=== PATIENT | male | born 1980 | race Caucasian/White ===

== ENCOUNTER → 2016-12-07 | Outpatient (CLI) | payer OTHER ==
[~2016-12-07] MED LIST: ACHD5005 PO; AMOX500C2 PO; CEPH500C PO; CITA40TA19 PO; CLON1TAB2 PO; DACL60TA PO; DIVA-20 PO; DIVA125T13 PO; DIVA500T PO; DIVA500T15; GABA600T2 PO; GBPN100C PO; GBPN300C PO; HYDR-3583; HYDR-3714 PO; HYDR-3812 PO; HYDR1TAB PO; HYDR1TAB8 PO; LAMO100T69; LAMO150T2 PO; LAMO150T3 PO; LMT25T; LMT25T PO; MAGN400C PO; NAPR-243 PO; ONDAN4ODT PO; PENI500T PO; PRILOSEC PO; PRM25T PO; RABE20TA PO; RABE20TA27 PO; SOFO400T PO; SULF1TAB35 PO; TAPE50TA PO; TOPI100T2 PO; TOPI200T19 PO; TPR100T PO; TPR25T PO; VIAGRA
--- NOTE | 2016-12-07 11:05 | Diagnostic Imaging Report ---
INDICATION: Back pain. COMPARISON: 11/01/2013 FINDINGS: 3 views of the lumbar spine are obtained. No acute fracture, malalignment or osseous destructive process is seen. Vertebral body heights and disc spaces are maintained. Pedicles appear intact. The sacroiliac joints appear unremarkable. IMPRESSION: No acute abnormality is demonstrated. Dictated by: Dictated on workstation # [id number]
== END ==
LOC: RAD 10:22
PROVIDERS: ATTEND Neuromusculoskeletal Medicine, Sports Medicine
DX: M54.5 Low back pain (principal)
CPT/HCPCS: 72100

== ENCOUNTER → 2017-11-01 | Outpatient (CLI) | payer MEDICAID ==
[~2017-11-01] MED LIST changes: -HYDR-3812 PO; +IOHEXOL 350 MG/ML 100 ML (OMNIPAQUE 350) VIAL IV ONE; +NS 250 ML (IVPB) BAG IV ONE
--- NOTE | 2017-11-01 14:01 | Diagnostic Imaging Report ---
PROCEDURE: CT head with and without contrast. TECHNIQUE: Multiple contiguous axial images were obtained through the brain before and after the administration of intravenous contrast. INDICATION: Seizures and neuropathy. Comparison is made with prior head CT from 02/08/2013. The ventricles and sulci are within normal limits. No sulcal effacement, midline shift or hemorrhage is detected. Cisterns are patent. No abnormal enhancement following contrast administration is identified. IMPRESSION: Unremarkable pre-and postcontrast CT of the brain. Dictated by: Dictated on workstation # [id number]
== END ==
LOC: RAD 13:07
PROVIDERS: ATTEND Nurse Practitioner Community Health
DX: G62.9 Polyneuropathy, unspecified (principal); R56.9 Unspecified convulsions
CPT/HCPCS: 70470

== ENCOUNTER 2018-06-26 12:50 | Emergency (ER) | payer MEDICAID ==
[~2018-06-26] VITALS: Ht 177.8 cm; Wt 65.8 kg
[~2018-06-26 12:50] MED LIST changes: -IOHEXOL 350 MG/ML 100 ML (OMNIPAQUE 350) VIAL IV ONE; -NS 250 ML (IVPB) BAG IV ONE
--- NOTE | 2018-06-26 13:06 | NUR ---
LG KNIFE REMOVED FROM PT AT THIS TIME.
--- NOTE | 2018-06-26 13:18 | ED Psychosocial ---
General Chief Complaint: Psych/Social Disorder Stated Complaint: PSYCH EVAL Source: patient Exam Limitations: no limitations History of Present Illness Date Seen by Provider: Jun 26, 2018 Time Seen by Provider: 13:15 Initial Comments To ER with reports of depression for many months culminating in thoughts of suicide yesterday and today. He thought of several ways to do this including injecting bleach, stepping out in front of a semi truck, taking a handful of pills. He states "I've got nobody". States he is unable to be employed due to seizure disorder and history of bulging disks in his neck. States that he cannot be in relationship because "I'm no good at them". He took a shot of whiskey yesterday and only occasionally drinks alcohol, not daily. He took a Xanax that was not prescribed to him yesterday. He injected methamphetamine yesterday as well. He is Cooperative on arrival and states that he needs help. Timing/Duration: constant Severity: moderate Associated Symptoms: suicidal ideation Allergies and Home Medications Allergies Coded Allergies: phenytoin (Unverified Allergy, Severe, RASH ITCHING, 08/14/08) Home Medications Gabapentin 600 Mg Tablet, 600 MG PO TID, (Reported) Hydrocodone Bit/Acetaminophen 1 Each Tablet, 1 TAB PO BID, (Reported) Hydrocodone Bit/Acetaminophen 1 Each Tablet, 1-2 TAB PO 4-6HR PRN for PAIN Prescribed by: TATIANA HESS on 01/22/16 1447 Lamotrigine 150 Mg Tablet, 150 MG PO BID, (Reported) LAST FILLED 02/01/15 #60 Rabeprazole Sodium 20 Mg Tablet.dr, 20 MG PO DAILY, (Reported) Topiramate 100 Mg Tablet, 100 MG PO BID, (Reported) LAST FILLED 01/31/15 #60 Patient Home Medication List Home Medication List Reviewed: Yes Review of Systems Constitutional: see HPI EENTM: see HPI Respiratory: no symptoms reported Cardiovascular: no symptoms reported Musculoskeletal: no symptoms reported Skin: no symptoms reported Psychiatric/Neurological: See HPI, Depressed, Emotional Problems Past Lksuatl-Agsdrx-Afftvo Hx Patient Social History Type Used: Cigarettes Recent Foreign Travel: No Contact w/Someone Who Travel: No Immunizations Up To Date Tetanus Booster (TDap): Unknown PED Vaccines UTD: No Date of Influenza Vaccine: Jan 24, 2013 Seasonal Allergies Seasonal Allergies: No Past Medical History Currently Using CPAP: No Currently Using BIPAP: No Neuropathy, Seizure Disorder, Traumatic Brain Injury Reproductive Disorders: Yes Sexually Transmitted Disease: Yes (Hep C) HIV/AIDS: No Gastroesophageal Reflux, Hepatitis Fractures Anxiety Family Medical History Arthritis 19 MOTHER Completed stroke 19 FATHER Myocardial infarction G8 BROTHER No Pertinent Family Hx Physical Exam Vital Signs - First Documented 06/26/18 13:00 Temp 97.9 Pulse 88 Resp 16 B/P (MAP) 114/79 (91) Pulse Ox 98 O2 Delivery Room Air Capillary Refill : Height, Weight, BMI Height: 5'10.00" Weight: 149lbs. 6.0oz. 67.747795cy; 24.79 BMI Method:Stated General Appearance: WD/WN, no apparent distress, other (cooperative alert.) HEENT: PERRL/EOMI, normal ENT inspection Neck: non-tender, full range of motion Respiratory: normal breath sounds, no respiratory distress, no accessory muscle use Cardiovascular: regular rate, rhythm, no murmur Gastrointestinal: normal bowel sounds, non tender, soft Extremities: normal range of motion, non-tender Neurologic/Psychiatric: alert, depressed affect Appearance/Memory: appropriate insight, no memory impairment, disheveled Behavior/Eye Contact: cooperative, normal speech, avoids eye contact Thoughts/Hallucinations: normal thought pattern Skin: normal color, warm/dry Progress/Results/Core Measures Results/Orders Lab Results Laboratory Tests Test 06/26/18 13:45 06/26/18 14:40 Range/Units White Blood Count 5.1 4.3-11.0 10^3/uL Red Blood Count 4.32 L 4.35-5.85 10^6/uL Hemoglobin 13.7 13.3-17.7 G/DL Hematocrit 39 L 40-54 % Mean Corpuscular Volume 91 80-99 FL Mean Corpuscular Hemoglobin 32 25-34 PG Mean Corpuscular Hemoglobin Concent 35 32-36 G/DL Red Cell Distribution Width 12.4 10.0-14.5 % Platelet Count 167 130-400 10^3/uL Mean Platelet Volume 10.8 H 7.4-10.4 FL Neutrophils (%) (Auto) 46 42-75 % Lymphocytes (%) (Auto) 45 H 12-44 % Monocytes (%) (Auto) 6 0-12 % Eosinophils (%) (Auto) 3 0-10 % Basophils (%) (Auto) 0 0-10 % Neutrophils # (Auto) 2.3 1.8-7.8 X 10^3 Lymphocytes # (Auto) 2.3 1.0-4.0 X 10^3 Monocytes # (Auto) 0.3 0.0-1.0 X 10^3 Eosinophils # (Auto) 0.2 0.0-0.3 10^3/uL Basophils # (Auto) 0.0 0.0-0.1 10^3/uL Sodium Level 139 135-145 MMOL/L Potassium Level 3.6 3.6-5.0 MMOL/L Chloride Level 109 H 98-107 MMOL/L Carbon Dioxide Level 23 21-32 MMOL/L Anion Gap 7 5-14 MMOL/L Blood Urea Nitrogen 11 7-18 MG/DL Creatinine 0.86 0.60-1.30 MG/DL Estimat Glomerular Filtration Rate > 60 BUN/Creatinine Ratio 13 Glucose Level 84 70-105 MG/DL Calcium Level 9.3 8.5-10.1 MG/DL Corrected Calcium 9.4 8.5-10.1 MG/DL Total Bilirubin 0.4 0.1-1.0 MG/DL Aspartate Amino Transf (AST/SGOT) 24 5-34 U/L Alanine Aminotransferase (ALT/SGPT) 53 0-55 U/L Alkaline Phosphatase 59 40-136 U/L Total Protein 6.7 6.4-8.2 GM/DL Albumin 3.9 3.2-4.5 GM/DL Salicylates Level < 5.0 L 5.0-20.0 MG/DL Acetaminophen Level 19 10-30 UG/ML Serum Alcohol < 10 <10 MG/DL Urine Color YELLOW Urine Clarity SLIGHTLY CLOUDY Urine pH 6 5-9 Urine Specific [place] 1.015 L 1.016-1.022 Urine Protein 1+ H NEGATIVE Urine Glucose (UA) NEGATIVE NEGATIVE Urine Ketones NEGATIVE NEGATIVE Urine Nitrite NEGATIVE NEGATIVE Urine Bilirubin NEGATIVE NEGATIVE Urine Urobilinogen 1 NORMAL MG/DL Urine Leukocyte Esterase 1+ H NEGATIVE Urine RBC (Auto) NEGATIVE NEGATIVE Urine RBC NONE /HPF Urine WBC 2-5 /HPF Urine Crystals NONE /LPF Urine Bacteria NEGATIVE /HPF Urine Casts NONE /LPF Urine Mucus SMALL H /LPF Urine Culture Indicated NO Urine Opiates Screen NEGATIVE NEGATIVE Urine Oxycodone Screen NEGATIVE NEGATIVE Urine Methadone Screen NEGATIVE NEGATIVE Urine Propoxyphene Screen NEGATIVE NEGATIVE Urine Barbiturates Screen NEGATIVE NEGATIVE Ur Tricyclic Antidepressants Screen NEGATIVE NEGATIVE Urine Phencyclidine Screen NEGATIVE NEGATIVE Urine Amphetamines Screen POSITIVE H NEGATIVE Urine Methamphetamines Screen POSITIVE H NEGATIVE Urine Benzodiazepines Screen POSITIVE H NEGATIVE Urine Cocaine Screen NEGATIVE NEGATIVE Urine Cannabinoids Screen NEGATIVE NEGATIVE My Orders Orders - HARSHIL MANN APRN Cbc With Automated Diff (06/26/18 13:00) Comprehensive Metabolic Panel (06/26/18 13:00) Ua Culture If Indicated (06/26/18 13:00) Drug Screen Stat (Urine) (06/26/18 13:00) Alcohol (06/26/18 13:00) Salicylate (06/26/18 13:00) Acetaminophen (06/26/18 13:00) Ekg Tracing (06/26/18 13:00) General/Regular (06/26/18 Dinner) General/Regular (06/26/18 Lunch) Vital Signs/I&O 06/26/18 06/26/18 13:00 16:08 Temp 97.9 Pulse 88 78 Resp 16 16 B/P (MAP) 114/79 (91) 115/66 (82) Pulse Ox 98 98 O2 Delivery Room Air Room Air Departure Communication (Admissions) His past medical history is listed as having traumatic brain injury, seizure disorder, neuropathy, these are all self reported conditions and I do not have any documentation to verify these. He's been noncompliant with seizure medications and despite that has not had a seizure in many years. 1736-Dr Cooper Psychiatrist accepted [facility]. Impression Primary Impression: Depression Qualified Codes: F32.2 - Major depressive disorder, single episode, severe without psychotic features Disposition: 65 XFER TO PSYCH HOSP/UNIT Condition: Stable Departure-Patient Inst. Referrals: [facility] (PCP) Primary Care Physician YOLETTE DUNLAP (Family) Primary Care Physician HARSHIL MANN APRN Jun 26, 2018 13:18
[2018-06-26 13:53] LABS: BASOPHILS % (AUTO) 0 % (0-10); EOSINOPHILS # (AUTO) 0.2 10^3/uL (0.0-0.3); EOSINOPHILS % (AUTO) 3 % (0-10); HEMATOCRIT 39 % (40-54); HEMOGLOBIN 13.7 G/DL (13.3-17.7); LYMPHOCYTES # (AUTO) 2.3 X 10^3 (1.0-4.0); LYMPHOCYTES % (AUTO) 45 % (12-44); MEAN CORPUSCULAR HEMOGLOBIN 32 PG (25-34); MEAN CORPUSCULAR HGB CONC 35 G/DL (32-36); MEAN CORPUSCULAR VOLUME 91 FL (80-99); MEAN PLATELET VOLUME 10.8 FL (7.4-10.4); MONOCYTES # (AUTO) 0.3 X 10^3 (0.0-1.0); MONOCYTES % (AUTO) 6 % (0-12); NEUTROPHILS # (AUTO) 2.3 X 10^3 (1.8-7.8); NEUTROPHILS % (AUTO) 46 % (42-75); PLATELET COUNT 167 10^3/uL (130-400); RED CELL DISTRIBUTION WIDTH 12.4 % (10.0-14.5); WHITE BLOOD COUNT 5.1 10^3/uL (4.3-11.0)
[2018-06-26 14:12] LABS: ACETAMINOPHEN 19 UG/ML (10-30); ALANINE AMINOTRANSFERASE 53 U/L (0-55); ALBUMIN 3.9 GM/DL (3.2-4.5); ALKALINE PHOSPHATASE 59 U/L (40-136); BILIRUBIN,TOTAL 0.4 MG/DL (0.1-1.0); BUN/CREATININE RATIO 13; CALCIUM 9.3 MG/DL (8.5-10.1); CARBON DIOXIDE 23 MMOL/L (21-32); CHLORIDE 109 MMOL/L (98-107); CREATININE SERUM 0.86 MG/DL (0.60-1.30); GFR ESTIMATED > 60; GLUCOSE 84 MG/DL (70-105); POTASSIUM 3.6 MMOL/L (3.6-5.0); SALICYLATE < 5.0 MG/DL (5.0-20.0); SODIUM 139 MMOL/L (135-145); TOTAL PROTEIN 6.7 GM/DL (6.4-8.2)
--- NOTE | 2018-06-26 14:41 | NUR ---
PT EATING LUNCH AT THIS TIME PROVIDED BY ED.
[2018-06-26 14:53] LABS: BILIRUBIN,URINE NEGATIVE (NEGATIVE); CLARITY,URINE SLIGHTLY CLOUDY; COLOR,URINE YELLOW; GLUCOSE, URINE (UA) NEGATIVE (NEGATIVE); KETONES,URINE NEGATIVE (NEGATIVE); LEUKOCYTE ESTERASE ,URINE 1+ (NEGATIVE); NITRITE,URINE NEGATIVE (NEGATIVE); PH,URINE 6 (5-9); PROTEIN,URINE 1+ (NEGATIVE); UROBILINOGEN,URINE 1 MG/DL (NORMAL)
[2018-06-26 15:11] LABS: BACTERIA,URINE NEGATIVE /HPF
--- NOTE | 2018-06-26 15:13 | NUR ---
PT RESTING QUIETLY, WARM BLANKETS TO PT.
[2018-06-26 15:30] LABS: AMPHETAMINE SCREEN, URINE POSITIVE (NEGATIVE); BARBITURATE SCREEN URINE NEGATIVE (NEGATIVE); BENZODIAZEPINES SCREEN URINE POSITIVE (NEGATIVE); CANNABINOID SCREEN, URINE NEGATIVE (NEGATIVE); COCAINE SCREEN URINE NEGATIVE (NEGATIVE); METHADONE STAT NEGATIVE (NEGATIVE); METHAMPHETAMINE SCREEN URINE S POSITIVE (NEGATIVE); OPIATE SCREEN URINE NEGATIVE (NEGATIVE); OXYCODONE STAT NEGATIVE (NEGATIVE); PROPOXYPHENE STAT NEGATIVE (NEGATIVE); TRICYCLIC ANTIDEPRESSANTS SCRE NEGATIVE (NEGATIVE)
--- NOTE | 2018-06-26 16:07 | NUR ---
PT RESTING QUIETLY, AROUSES EASILY. NO DISTRESS OR DISCOMFORT NOTED.
[2018-06-26 16:08] VITALS: BP 115/66
--- NOTE | 2018-06-26 16:51 | NUR ---
PT UP TO BR AT THIS TIME.
--- OUTSIDE RECORDS SUMMARY | 2018-06-26 17:07 | XMS REPORT | Clinical Summary ---
Author Author [facility] Organization [facility] Address Unknown Phone Unavailable Care Team Providers Care Natural Resources Manager Name Role Phone Joel Cantor MD Unavailable Deacon Weldon DO PCP Eden Candelaria RN Unavailable Unavailable Oz Anderson RN Unavailable Unavailable Qian Calderón Unavailable Unavailable Source Comments Some departments are not documenting in the electronic medical record. If you do not see the information that you expected, contact Release of Information in the Health Information Management department at [phone] for further assistance in locating additional records.[facility] Allergies Comments Active Allergy Reactions Severity Noted Date Phenytoin Sodium Extended RASH 03/30/2014 Medications End Date Status Medication Sig Dispensed Refills Start Date Active lamoTRIgine (LAMICTAL) Take by 0 150 mg tablet mouth daily. Active topiramate (TOPAMAX) 200 Take 300 mg 0 mg tablet by mouth twice daily. Active gabapentin (NEURONTIN) Take 600 mg 0 600 mg tablet by mouth three times daily. Active RABEprazole DR (+) Take 20 mg by 0 (ACIPHEX) 20 mg tablet mouth daily. Active ibuprofen (MOTRIN) 200 mg Take 300 mg 0 tablet by mouth every 6 hours as needed. Active Hydrocodone-Acetaminophen Take 1 Tab by 0 (VICODIN) 5-300 mg tab mouth every 4 hours as needed Active sofosbuvir 400 mg tab Take 1 Tab by 30 Tab 2 mouth daily. 5 Hep C jennifer 3 with 3/6 fibrosis. Active daclatasvir 60 mg tab Take 60 mg by 30 Tab 2 mouth daily. 5 HCV jennifer 3 with 3/6 fibrosis Active Problems Not on file Family History Medical History Relation Name Comments Migraines Mother Seizures Paternal Grandmother Relation Name Status Comments Mother Paternal Grandmother Social History Date Tobacco Use Types Packs/Day Years Used Current Every Day Smoker 0.5 15 Tobacco Cessation: Ready to Quit: Yes Comments: Smoke 1 pack every 2 days Alcohol Use Drinks/Week oz/Week Comments Yes 0 Standard 0.0 quit drinking 06/2013 drinks or equivalent Sex Assigned at Date Recorded Not on file Industry Job Start Date Occupation Not on file Not on file Not on file Travel End Travel History Travel Start No recent travel history available. Last Filed Vital Signs Time Taken Vital Sign Reading 02/18/2015 9:09 AM CDT Blood Pressure 94/50 02/18/2015 9:09 AM CDT Pulse 74 02/18/2015 9:09 AM CDT Temperature 36.5 C (97.7 F) 02/18/2015 9:09 AM CDT Respiratory Rate 18 02/18/2015 9:09 AM CDT Oxygen Saturation 100% - Inhaled Oxygen - Concentration 02/18/2015 9:09 AM CDT Weight 67.2 kg (148 lb 3.2 oz) 02/18/2015 9:09 AM CDT Height 177.8 cm (5' 10") 02/18/2015 9:09 AM CDT Body Mass Index 21.26 Plan of Treatment Health Maintenance Due Date Last Done Comments PHYSICAL (COMPREHENSIVE) 1985 EXAM DTAP/TDAP VACCINES ( - 1996 Tdap) INFLUENZA VACCINE 11/24/2018 HIV SCREENING Completed 03/30/2014 Results Not on filefrom Last 3 Months Insurance Payer Benefit Subscriber ID Type Phone Address Plan / Group [facility] [facility] xxxxxxxxxxx Medicaid [employer] [place] Advance Directives Patient has advance care planning documents on file. For more information, please contact: [facility] [id number] [place] [address]
--- OUTSIDE RECORDS SUMMARY | 2018-06-26 17:08 | XMS REPORT ---
Author Author CHRISTIANO MEDNES Organization [facility] Address [address] [place] [address] Care Team Providers Care Oxygen Furnace Operator Name Role Phone CHRISTIANO MENDES Unavailable PROBLEMS Type Condition ICD9-CM Code NGV44-YM Code Onset Dates Condition Status SNOMED Code Problem Other chronic pain G89.29 Active 29994841 Problem Other chronic pain G89.29 Active 54129579 Problem Seizures R56.9 Active 81237384 Problem Lumbago with sciatica, right side M54.41 Active 354317464 Problem Polysubstance (including opioids) dependence, daily use F19.20 Active 866969407 Problem Neuropathy G62.9 Active 555430396 Problem Cigarette nicotine dependence without complication F17.210 Active 26123161 Problem Gastroenteritis K52.9 Active 53123537 Problem Anxiety F41.9 Active 49260301 Problem Simple chronic bronchitis J41.0 Active 61258770 ALLERGIES Substance Reaction Event Type Date Status Tramadol HCl Pt states induces seizures Drug Allergy Nov, Active Dilantin hives Drug Allergy Nov, Active BusPIRone HCl Pt states induces seizures Drug Allergy Nov, Active ENCOUNTERS Encounter Location Date Diagnosis [facility] [id number] [place] [address]1- 8985 Nov, Neuropathy G62.9 ; Seizures R56.9 and Polysubstance ( including opioids) dependence, daily use F19.20 [facility] [address] [facility] [id number] [address] Oct, [facility] [id number] [place] [address] 95394- 5800 Oct, [address] R56.9 [facility] [address] [id number] [address] 9579 Oct, Seizures R56.[address] [facility] [id number] [place] [address] 63678- 0811 18 Sep, 2017 Seizures R56.9 ; Neuropathy G62.9 and Tinea pedis of both feet B35.3 [facility] [id number] [place] [address] 19636- 6316 15 Sep, 2017 [facility] [address] [address]- 7006 11 Sep, [address] [facility] [address] [address]- 5381 08 Aug, 2017 [facility] [address] [address] Jun, [facility] [address] 17377- 0382 18 Apr, [address] [facility] [address] [address]- 0948 16 Apr, 2017 [facility] [address] 0[address]28- 8843 Apr, Lumbar neuritis M54.16 [facility] [id number] [place] [address] 30125- 4921 Mar, Lumbar neuritis M54.16 [facility] [id number] [place] [address] 10595- 6036 Feb, Lumbar neuritis M54.16 [facility] [id number] [place] [address] 81570 2540 Feb, Anxiety F41.[address] [facility] [address] 64178- 4966 14 Feb, 2017 [facility] [id number] [place] [address] 43735- 9936 Jan, Lumbar neuritis M54.16 [facility] [id number] [place] [address] 72135- 0734 Jan, Seizures R56.9 [facility] [address] [address]- 4556 Jan, [facility] [id number] [place] [address] 48417- 5264 Dec, Lumbar neuritis M54.16 [facility] [address] 31694- 3780 Dec, [facility] [id number] [place] [address] 07792- 4251 Nov, Lumbar neuritis M54.16 [facility] [id number] [place] [address] 35032- 2742 Nov, [facility] [id number] [address] 41493- 4872 Nov, [facility] [id number] [address] 81351- 2027 Nov, Lumbar neuritis M54.16 [facility] [id number] [address] 89543- 3065 Oct, Lumbar neuritis M54.16 [facility] [id number] [address] 27506- 6542 Sep, Lumbago with sciatica, right side M54.[address] [facility] [id number] [address] 15654- 7304 Sep, Lumbar neuritis M54.16 [facility] [id number] [address] 01419- 6278 August, Lumbar neuritis M54.[address] [facility] [id number] [address] 69791- 9826 August, Simple chronic bronchitis J41.0 ; Hemoptysis R04.2 and Cigarette nicotine dependence without complication F17.210 [address] [place] [id number] [address] 76673- 4377 Jul, Lumbago with sciatica, right side M54.41 [place] [id number] [address] 27170- 9485 Jul, Lumbago with sciatica, right side M54.41 [address] [address] 53215- 6979 Jun, Lumbago with sciatica, right side M54.41 [address] 07549- 6230 Jun, Lumbago with sciatica, right side M54.41 [address] [address] 72034- 0301 Jun, Lumbago with sciatica, right side M54.41 [facility] [address] [address]18 -0683 Jun, Gastroenteritis K52.9 [address] [place] [address] 80012- 9219 May, Seizures R56.9 ; Tobacco use Z72.0 ; Tobacco abuse counseling Z71.6 ; Tooth abscess K04.7 ; Pain in right leg M79.604 ; Pain of left leg M79.605 ; Other chronic pain G89.29 and Neuropathy G62.9 [place] [id number] [address] 04477- 0398 May, Lumbago with sciatica, right side M54.41 [address] [address] 03065- 4026 Apr, Lumbago with sciatica, right side M54.41 [address] [address] 04300- 6557 Mar, Lumbago with sciatica, right side M54.41 [facility] [address] [id number] [address] 117[address] Mar, [facility] [address] [facility] [id number] [address] 90662- 8037 Mar, Lumbago with sciatica, right side M54.41 [facility] [address] [facility] [id number] [address] 37961- 0117 Feb, Lumbago with sciatica, right side M54.41 and Other chronic pain G89.29 [facility] [address] [facility] [id number] [place] [address] 96400- 9042 Feb, [facility] [address] [facility] [id number] [address] [place] [address] 62171- 5477 Nov, Dental caries K02.9 [facility] [id number] [place] [address] 13835- 5940 Oct, Dental examination Z01.20 [facility] [id number] [place] [address] 16988- 0786 Jul, Dental examination Z01.20 [facility] [id number] [place] [address] 49370- 4621 Jul, Dental examination Z01.20 and Dental caries K02.9 [facility] [id number] [address] 77107- 9048 Jun, Dental examination Z01.20 [facility] [address] [address]- 1016 Jul, [facility] [address] [facility] [id number] [address]- [address] Jul, [facility] [id number] [address] 96016- 5446 Apr, [facility] [address] [id number] [address]- 8404 Apr, [facility] [id number] [place] [address], [place] [address]- 7682 Mar, [facility] [place] [facility] [address] [id number] [place] [address]- 8091 Mar, [facility] [place] [facility] [address] [id number] [place] [address]- 3795 Nov, [facility] [place] [facility] [address] [id number] [place] [address]- 2944 Nov, [facility] [place] [facility] [address] [id number] [place] [address]- 9628 Nov, [facility] [place] [facility] [address] [id number] [place] [address]- 7886 Nov, [facility] [place] [facility] [address] [id number] [place] [address]- 8033 Oct, [facility] [place] [facility] [address] [id number] [place] [address]- 8216 Oct, [facility] [place] [facility] [address] [id number] [place] [address]- 5041 Sep, [facility] [place] [facility] [address] [id number] [place] [address]- 1397 Sep, [facility] [place] [facility] [address] [id number] [place] [address]- 9156 August, [facility] [place] [facility] [address] [id number] [place] [address]- 0202 August, [facility] [place] [facility] [address] [id number] [place] [address]- 5721 Jul, [facility] [place] [facility] [address] [id number] [place] [address]- 5272 Jul, [facility] [place] [facility] [address] [id number] [place] [address]- 9579 Jul, [facility] [place] [facility] [address] [id number] [place] [address]- 8759 Jul, [facility] [place] [facility] [address] [id number] [place] [address]- 8641 Jul, [facility] [place] [facility] [address] [id number] [place] [address]- 0735 Jul, [facility] [place] [facility] [address] [id number] [place] [address]- 8661 Jul, [facility] [place] [facility] [address] [id number] [place] [address]- 2169 Jul, [facility] [place] [facility] [address] [id number] [place] [address]- 0295 Jul, [facility] [place] [facility] [address] [id number] [place] [address]- 8148 Jul, [facility] [place] [facility] [address] [id number] [place] [address]- 0624 Jun, [facility] [place] [facility] [address] [id number] [place] [address]- 5253 Jun, [facility] [place] [facility] [address] [id number] [place] [address]- 4393 Jun, [facility] [place] [facility] [address] [id number] [place] [address]- 1966 Jun, [facility] [place] [facility] [address] [id number] [place] [address]- 3110 Jun, [facility] [place] [facility] [address] [id number] [place] [address]- 3123 Jun, [facility] [place] [facility] [address] [id number] [place] [address]- 0217 May, [facility] [place] [facility] [address] [id number] [place] [address]- 6736 May, [facility] [place] [facility] [address] [id number] [place] [address]- 6998 May, [facility] [place] [facility] [address] [id number] [address]- 0510 May, [facility] [place] [facility] [address] [id number] [place] [address]- 2440 Apr, [facility] [place] [facility] [address] [id number] [place] [address]- 7372 Apr, [facility] [place] [facility] [address] [id number] [place] [address]- 1860 Apr, [facility] [place] [facility] [address] [id number] [place] [address]- 7466 Apr, [facility] [place] [facility] [address] [id number] [place] [address]- 3428 Apr, [facility] [place] [facility] [address] [id number] [place] [address]- 5124 Apr, [facility] [place] [facility] [address] [id number] [place] [address]- 6684 Feb, [facility] [place] [facility] [address] [id number] [place] [address]- 0022 Feb, [facility] [place] [facility] [address] [id number] [place] [address]- 9429 Feb, [facility] [place] [facility] [address] [id number] [place] [address]- 6966 Feb, [facility] [place] [facility] [address] [id number] [address]- 1477 Feb, [facility] [place] [facility] [address] [id number] [place] [address]- 9446 Feb, [facility] [place] [facility] [address] [id number] [place] [address]- 8266 Jan, [facility] [place] [facility] [address] [id number] [place] [address]- 0888 Jan, [facility] [place] [facility] [address] [id number] [place] [address]- 6521 Jan, [facility] [place] [facility] [address] [id number] [place] [address]- 0796 10 Jan, 2013 [facility] [address] [id number] [place] [address]- 8063 Jan, [facility] [place] [facility] [address] [id number] [place] [address] 2546 Nov, [facility] [address] [id number] [place] [address]- 5866 Oct, [facility] [address] [id number] [place] [address]- 6399 Sep, [facility] [address] [id number] [place] [address]- 1310 Sep, [facility] [address] [id number] [place] [address]- 0206 August, [facility] [address] [id number] [place] [address]- 1265 Jul, [facility] [address] [id number] [place] [address]- 7383 Jul, [facility] [address] [id number] [place] [address]- 6806 Jun, [facility] [address] [id number] [place] [address]- 5895 Jun, [facility] [place] [facility] [address] [id number] [place] [address]- 4989 Jun, [facility] [place] [facility] [address] [id number] [place] [address]- 9389 Jun, [facility] [place] [facility] [address] [id number] [place] [address]- 2546 06 Jun, 2012 [facility] [place] [facility] [address] [id number] [place] [address]- 2546 05 Jun, 2012 [facility] [place] [facility] [address] [id number] [place] [address]- 5074 Apr, [facility] [place] [facility] [address] [id number] [place] [address]- 9103 Mar, [facility] [place] [facility] [address] [id number] [place] [address]- 2892 Mar, [facility] [place] [facility] [address] [id number] [place] [address]- 5484 Feb, [facility] [place] [facility] [address] [id number] [place] [address]- 1405 Feb, [facility] [place] [facility] [address] [id number] [place] [address]- 7835 Feb, [facility] [place] [facility] [address] [id number] [place] [address]- 2704 Feb, [facility] [place] [facility] [address] [facility] [id number] [place] [address]- 7459 Feb, [facility] [place] [facility] [address] [id number] [place] [address]- 8117 Feb, [facility] [place] [facility] [address] [id number] [place] [address]- 6983 Feb, [facility] [place] [facility] [address] [facility] [id number] [address]- 6315 Feb, [facility] [place] [facility] [address] [id number] [address]- 8743 Jan, [facility] [place] [facility] [address] [id number] [place] [address]- 0465 Jan, [facility] [place] [facility] [address] [id number] [place] [address]- 4090 Jan, [facility] [place] [facility] [address] [id number] [address]- 3757 Dec, [facility] [place] [facility] [address] [id number] [place] [address]- 6278 24 Dec, 2011 [facility] [place] [facility] [address] [id number] [place] [address]- 6323 24 Dec, 2011 [facility] [place] [facility] [address] [id number] [place] [address]- 4696 18 Dec, 2011 [facility] [place] [facility] [address] [id number] [place] [address]- 1346 18 Dec, 2011 [facility] [place] [facility] [address] [id number] [place] [address]- 0136 17 Dec, 2011 [facility] [place] [facility] [address] [id number] [place] [address]- 9928 Nov, [facility] [place] [facility] [address] [id number] [place] [address]- 8273 Oct, [facility] [place] [facility] [address] [id number] [place] [address]- 8483 Oct, [facility] [address] [id number] [place] [address]- 7344 Oct, [facility] [place] [facility] [address] [id number] [place] [address]- 3024 Sep, [facility] [place] [facility] [address] [id number] [place] [address]- 7541 August, [facility] [place] [facility] [address] [id number] [place] [address]- 3389 August, [facility] [place] [facility] [address] [id number] [place] [address]- 5969 Jul, [facility] [place] [facility] [address] [id number] [place] [address]- 4441 Jul, [facility] [place] [facility] [address] [id number] [place] [address]- 0480 Jul, [facility] [place] [facility] [address] [id number] [place] [address]- 7253 Jul, [facility] [place] [facility] [address] [id number] [place] [address]- 8991 Jun, [facility] [place] [facility] [address] [address]- 9422 Jun, [facility] [address]00565[address] [address]- [address] Jun, [facility] [address] [address]- [address] Jun, [facility] [address]65[address] [address]- [address] Jun, [facility] [address] [address]- [address] Jun, [facility] [address] [address]- 7185 Jun, [facility] [address] [id number] [address]- [address] Jun, [facility] [address] [address]- 4221 May, [facility] [address] [address] 4205 Apr, [facility] [address] [address]- 1563 Feb, IMMUNIZATIONS No Known Immunizations SOCIAL HISTORY Never Assessed REASON FOR VISIT MAT Assessment, Meth, alcohol, opiate use currently; used all yesterday PLAN OF CARE Activity Details Follow Up we will call Reason: VITAL SIGNS Height 70 in 2017-12-14 Weight 133.3 lbs 2017-12-14 Temperature 98.8 degrees Fahrenheit 2017-12-14 Heart Rate 92 bpm 2017-12-14 Respiratory Rate 18 2017-12-14 BMI 19.12 kg/m2 2017-12-14 Blood pressure systolic 110 mmHg 2017-12-14 Blood pressure diastolic 68 mmHg 2017-12-14 MEDICATIONS Medication Instructions Dosage Frequency Start Date End Date Duration Status Omeprazole 20 mg Orally Once a day TAKE ONE CAPSULE BY MOUTH ONCE DAILY 24h 90 days Active Topiramate 200 MG TAKE ONE TABLET BY MOUTH TWICE DAILY 90 Active Viagra 100 mg Orally Once a day 1 tablet as needed 24h Sep, Active Keppra 750 MG Orally Twice a day 1 tablet 12h Sep, 30 day(s) Active RESULTS No Results PROCEDURES No Known procedures INSTRUCTIONS MEDICATIONS ADMINISTERED No Known Medications MEDICAL (GENERAL) HISTORY Type Description Date Medical History Fainting, Seizures, Epilepsy Medical History Hepatitis C Medical History 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
--- OUTSIDE RECORDS SUMMARY | 2018-06-26 17:08 | XMS REPORT ---
Author Author YOLETTE DUNLAP Organization [facility] Address [address] [place] [address] Care Team Providers Care Foil Cutter Name Role Phone YOLETTE DUNLAP Unavailable PROBLEMS Type Condition ICD9-CM Code QQQ76-GP Code Onset Dates Condition Status SNOMED Code Problem Other chronic pain G89.29 Active 42477285 Problem Other chronic pain G89.29 Active 21848037 Problem Seizures R56.9 Active 78901586 Problem Lumbago with sciatica, right side M54.41 Active 678689041 Problem Polysubstance (including opioids) dependence, daily use F19.20 Active 735091572 Problem Neuropathy G62.9 Active 189576154 Problem Cigarette nicotine dependence without complication F17.210 Active 66029956 Problem Gastroenteritis K52.9 Active 72544339 Problem Anxiety F41.9 Active 93319609 Problem Simple chronic bronchitis J41.0 Active 69578214 ALLERGIES No Information ENCOUNTERS Encounter Location Date Diagnosis [facility] [address] [address] Feb, [facility] [address] [address]- [address] Nov, Neuropathy G62.9 ; Seizures R56.9 and Polysubstance ( including opioids) dependence, daily use F19.20 [facility] [id number] [place] [address]22- 7355 Oct, [facility] [address] [address]- [address] Oct, Seizures R56.9 [facility] [address] [address]- 0871 Oct, Seizures R56.9 and Neuropathy G62.9 [facility] [address] [address]- 2561 18 Sep, 2017 Seizures R56.9 ; Neuropathy G62.9 and Tinea pedis of both feet B35.3 [facility] [address] [address]- 7161 15 Sep, 2017 [facility] [address] 26[address]- 2336 11 Sep, 2017 Seizures R56.9 [facility] [address] 26258- 8255 August, [facility] [address] [address]- 6954 Jun, [facility] [address] [address]- 4607 18 Apr, 2017 Lumbar neuritis M54.16 [facility] [address] [address]47- 8056 16 Apr, 2017 [facility] [address] 12[address]- 7802 Apr, Lumbar neuritis M54.16 [facility] [address] 0[address]- 4347 Mar, Lumbar neuritis M54.16 [facility] [address] [address]- 3037 Feb, Lumbar neuritis M54.16 [facility] [address] [address] 2541 Feb, Anxiety F41.9 and Seizures R56.9 [facility] [address] 07456- 2116 14 Feb, 2017 [facility] [id number] [place] [address] 10429- 2225 23 Jan, 2017 Lumbar neuritis M54.16 [facility] [address] 24949- 9886 Jan, Seizures R56.9 [facility] [id number] [place] [address] 69843- 9793 Jan, [facility] [id number] [place] [address] 39948- 2672 Dec, Lumbar neuritis M54.16 [facility] [id number] [place] [address] 11706- 5649 Dec, [facility] [id number] [place] [address] 20265- 0024 Nov, Lumbar neuritis M54.16 [facility] [id number] [place] [address] 91148- 2364 Nov, [facility] [id number] [place] [address] 43776- 6271 Nov, [facility] [address] 44984- 2168 Nov, Lumbar neuritis M54.16 [facility] [id number] [place] [address] 51094- 6364 Oct, Lumbar neuritis M54.16 [facility] [id number] [place] [address] 24503- 2367 Sep, Lumbago with sciatica, right side M54.41 and Seizures R56.9 [facility] [id number] [place] [address] 02900- 7959 Sep, Lumbar neuritis M54.16 [facility] [id number] [place] [address] 15790- 4912 August, Lumbar neuritis M54.16 and Anxiety F41.9 [facility] [id number] [place] [address] 46407- 4868 August, Simple chronic bronchitis J41.0 ; Hemoptysis R04.2 and Cigarette nicotine dependence without complication F17.210 [facility] [id number] [place] [address]- 6569 Jul, Lumbago with sciatica, right side M54.41 [place] [address] [address]- 9594 Jul, Lumbago with sciatica, right side M54.41 [place] [id number] [place] [address] 65610- 2328 Jun, Lumbago with sciatica, right side M54.41 [place] [id number] [place] [address] 84877- 8502 Jun, Lumbago with sciatica, right side M54.41 [place] [address] 61997- 0134 Jun, Lumbago with sciatica, right side M54.41 [facility] [id number] [place] [address] 80177 -1468 Jun, Gastroenteritis K52.9 [place] [id number] [place] [address] 68250- 2895 May, Seizures R56.9 ; Tobacco use Z72.0 ; Tobacco abuse counseling Z71.6 ; Tooth abscess K04.7 ; Pain in right leg M79.604 ; Pain of left leg M79.605 ; Other chronic pain G89.29 and Neuropathy G62.9 [place] [id number] [place] [address] 79374- 0497 May, Lumbago with sciatica, right side M54.41 [place] [id number] [place] [address] 53103- 1286 Apr, Lumbago with sciatica, right side M54.41 [place] [id number] [place] [address] 31736- 2136 Mar, Lumbago with sciatica, right side M54.41 [place] [id number] [place] [address] 20250- 7301 Mar, [facility] [id number] [address]- [address] Mar, Lumbago with sciatica, right side M54.41 [facility] [address] [id number] [address]- 9634 Feb, Lumbago with sciatica, right side M54.41 and Other chronic pain G89.29 [facility] [id number] [place] [address] 17556- 6387 Feb, [facility] [id number] [place] [address] 42450- 2278 Nov, Dental caries K02.9 [facility] [address] [address]- 8762 Oct, Dental examination Z01.20 [facility] [id number] [place] [address] 70315- 4356 Jul, Dental examination Z01.20 [facility] [address] [place] [address] 57621- 0069 Jul, Dental examination Z01.20 and Dental caries K02.9 [facility] [address] [address]- 3300 Jun, Dental examination Z01.20 [facility] [address] [address]- 3837 14 Jul, 2014 [facility] [address] [address]- 3576 Jul, [facility] [address] [address]- 9017 Apr, [facility] [id number] [address]- 4640 Apr, [facility] [address] [address]- 8706 Mar, [facility] [place] [facility] [address] [id number] [place] [address]- 3876 Mar, [facility] [place] [facility] [address] [id number] [place] [address]- 1973 Nov, [facility] [place] [facility] [address] [id number] [place] [address]- 8251 Nov, [facility] [place] [facility] [address] [id number] [place] [address]- 9826 Nov, [facility] [place] [facility] [address] [id number] [place] [address]- 0742 Nov, [facility] [place] [facility] [address] [id number] [place] [address]- 4178 Oct, [facility] [place] [facility] [address] [id number] [place] [address]- 5369 Oct, [facility] [place] [facility] [address] [id number] [place] [address]- 3764 Sep, [facility] [place] [facility] [address] [id number] [place] [address]- 0631 Sep, [facility] [place] [facility] [address] [id number] [place] [address]- 8736 August, [facility] [place] [facility] [address] [id number] [place] [address]- 8689 August, [facility] [place] [facility] [address] [id number] [place] [address]- 8827 Jul, [facility] [place] [facility] [address] [id number] [place] [address]- 4390 Jul, [facility] [place] [facility] [address] [id number] [place] [address]- 5046 Jul, [facility] [place] [facility] [address] [id number] [place] [address]- 0336 Jul, [facility] [place] [facility] [address] [id number] [place] [address]- 7817 Jul, [facility] [place] [facility] [address] [id number] [place] [address]- 3663 Jul, [facility] [place] [facility] [address] [id number] [place] [address]- 0298 Jul, [facility] [place] [facility] [address] [id number] [place] [address]- 8191 Jul, [facility] [place] [facility] [address] [id number] [place] [address]- 8163 Jul, [facility] [place] [facility] [address] [id number] [place] [address]- 8403 Jul, [facility] [place] [facility] [address] [id number] [place] [address]- 1900 Jun, [facility] [place] [facility] [address] [facility] [id number] [place] [address]- 5354 Jun, [facility] [place] [facility] [address] [id number] [place] [address]- 9108 Jun, [facility] [place] [facility] [address] [id number] [place] [address]- 7520 Jun, [facility] [place] [facility] [address] [facility] [id number] [place] [address]- 0618 Jun, [facility] [place] [facility] [address] [id number] [place] [address]- 7126 Jun, [facility] [place] [facility] [address] [id number] [place] [address]- 0523 May, [facility] [place] [facility] [address] [id number] [place] [address]- 3870 May, [facility] [place] [facility] [address] [id number] [place] [address]- 0797 May, [facility] [place] [facility] [address] [facility] [id number] [place] [address]- 6835 May, [facility] [place] [facility] [address] [id number] [place] [address]- 9042 Apr, [facility] [place] [facility] [address] [id number] [place] [address]- 4559 Apr, [facility] [place] [facility] [address] [id number] [place] [address]- 3267 Apr, [facility] [place] [facility] [address] [id number] [place] [address]- 9267 Apr, [facility] [place] [facility] [address] [id number] [place] [address]- 4070 Apr, [facility] [place] [facility] [address] [id number] [place] [address]- 4377 Apr, [facility] [place] [facility] [address] [id number] [place] [address]- 3186 Feb, [facility] [place] [facility] [address] [id number] [place] [address]- 8498 Feb, [facility] [place] [facility] [address] [id number] [place] [address]- 5645 Feb, [facility] [place] [facility] [address] [id number] [place] [address]- 7272 Feb, [facility] [place] [facility] [address] [id number] [place] [address]- 8517 Feb, [facility] [place] [facility] [address] [id number] [place] [address]- 8165 Feb, [facility] [place] [facility] [address] [id number] [place] [address]- 0315 Jan, [facility] [place] [facility] [address] [id number] [place] [address]- 5151 Jan, [facility] [place] [facility] [address] [id number] [place] [address]- 3457 Jan, [facility] [place] [facility] [address] [id number] [place] [address]- 4047 Jan, [facility] [address] [id number] [place] [address]- 3370 Jan, [facility] [place] [facility] [address] [id number] [place] [address]- 4326 Nov, [facility] [place] [facility] [address] [id number] [place] [address]- 2960 Oct, [facility] [place] [facility] [address] [id number] [place] [address]- 2511 Sep, [facility] [place] [facility] [address] [id number] [place] [address]- 9619 Sep, [facility] [place] [facility] [address] [id number] [place] [address]- 7376 August, [facility] [place] [facility] [address] [id number] [place] [address]- 4080 Jul, [facility] [place] [facility] [address] [id number] [place] [address]- 0405 Jul, [facility] [place] [facility] [address] [id number] [place] [address]- 7006 Jun, [facility] [place] [facility] [address] [id number] [place] [address]- 8557 Jun, [facility] [place] [facility] [address] [id number] [address]- 5699 Jun, [facility] [place] [facility] [address] [id number], [place] [address]- 9073 Jun, [facility] [place] [facility] [address] [id number] [place] [address] 2541 Jun, [facility] [place] [facility] [address] [id number] [place] [address]- 9906 05 Jun, 2012 [facility] [place] [facility] [address] [id number] [place] [address]- 2546 Apr, [facility] [place] [facility] [address] [id number] [place] 4723 Mar, [facility] [place] [facility] [address] [id number] [place] 4667 Mar, [facility] [place] [facility] [address] [id number] [place] [address]- 2056 Feb, [facility] [place] [facility] [address] [id number] [place] [address]- 2386 Feb, [facility] [place] [facility] [address] [id number] [place] [address]- 7151 Feb, [facility] [place] [facility] [address] [id number] [place] [address]- 7101 Feb, [facility] [place] [facility] [address] [id number] [place] [address]- 4402 Feb, [facility] [place] [facility] [address] [facility] [id number] [place] [address]- 4322 Feb, [facility] [place] [facility] [address] [id number] [place] [address]- 1850 Feb, [facility] [place] [facility] [address] [facility] [id number] [place] [address]- 8075 Feb, [facility] [place] [facility] [address] [facility] [id number] [place] [address]- 8264 Jan, [facility] [place] [facility] [address] [id number] [place] [address]- 3353 Jan, [facility] [place] [facility] [address] [facility] [id number] [place] 1007 Jan, [facility] [place] [facility] [address] [id number] [place] [address]- 6958 Dec, [facility] [place] [facility] [address] [facility] [id number] [place] [address]- 9227 Dec, [facility] [place] [facility] [address] [id number] [place] 8570 Dec, [facility] [place] [facility] [address] [id number] [place] [address]- 5872 Dec, [facility] [place] [facility] [address] [id number] [place] [address]- 1242 Dec, [facility] [address] [id number] [place] [address]- 6585 Dec, [facility] [place] [facility] [address] [id number] [place] [address]- 6146 Nov, [facility] [address] [id number] [place] [address]- 5299 Oct, [facility] [address] [id number] [place] [address]- 9558 Oct, [facility] [address] [id number] [place] [address]- 0372 Oct, [facility] [address] [id number] [place] [address]- 6813 Sep, [facility] [address] [id number] [place] [address]- 0635 August, [facility] [address] [id number] [place] [address]- 7002 August, [facility] [address] [id number] [place] [address]- 5984 Jul, [facility] [place] [facility] [address] [id number] [place] [address]- 9888 Jul, [facility] [place] [facility] [address] [id number] [place] [address]- 2379 Jul, [facility] [place] [facility] [address] [id number] [place] [address]- 6512 Jul, [facility] [place] [facility] [address] [id number] [place] [address]- 0923 Jun, [facility] [place] [facility] [address] [id number] [address]- 2546 Jun, [facility] [id number] [address]- 5396 Jun, [facility] [address] [address]- 2546 Jun, [facility] [id number] [address]- 2546 Jun, [facility] [address], [place] [address]- 2546 Jun, [facility] [id number] [address]- 2546 Jun, [facility] [address] [address]- 2546 Jun, [facility] [address], [place] [address] 2546 May, [facility] [address] [address]- 9626 Apr, [facility] [address], [place] [address]- 6136 Feb, IMMUNIZATIONS No Known Immunizations SOCIAL HISTORY Never Assessed REASON FOR VISIT Refill request PLAN OF CARE VITAL SIGNS MEDICATIONS Medication Instructions Dosage Frequency Start Date End Date Duration Status Topiramate 200 MG 1 tablet 12h Active Keppra 750 MG Orally Twice a [...]
--- OUTSIDE RECORDS SUMMARY | 2018-06-26 17:09 | XMS REPORT ---
Author Author YOLETTE DUNLAP Organization [facility] Address [address] [place] [address] Care Team Providers Care Bog Cutter Name Role Phone YOLETTE DUNLAP Unavailable PROBLEMS Type Condition ICD9-CM Code FCB10-UR Code Onset Dates Condition Status SNOMED Code Problem Other chronic pain G89.29 Active 54719470 Problem Other chronic pain G89.29 Active 62037350 Problem Seizures R56.9 Active 91599955 Problem Lumbago with sciatica, right side M54.41 Active 874448813 Problem Polysubstance (including opioids) dependence, daily use F19.20 Active 435108462 Problem Neuropathy G62.9 Active 182046195 Problem Cigarette nicotine dependence without complication F17.210 Active 43025980 Problem Gastroenteritis K52.9 Active 27608048 Problem Anxiety F41.9 Active 79657230 Problem Simple chronic bronchitis J41.0 Active 38885898 ALLERGIES No Information ENCOUNTERS Encounter Location Date Diagnosis [facility] [address] [address] Dec, [facility] [address] [address] Nov, Neuropathy G62.9 ; Seizures R56.9 and Polysubstance ( including opioids) dependence, daily use F19.20 [facility] [id number] [place] [address]01- [address]494 Oct, [facility] [address] [address] Oct, Se[address]56.9 [facility] [address] [address]- [address] Oct, Seizures R56.[address] [facility] [address] [address]- [address] 18 Sep, 2017 Seizures R56.9 ; Neuropathy G62.9 and Tinea pedis of both feet B35.3 [facility] [address] [address]- [address] 15 Sep, 2017 [facility] [address] 14863- 7936 11 Sep, [address] [facility] [address] [address]- [address] August, [facility] [address] [address]- [address] Jun, [facility] [address] 24655- 4890 18 Apr, [address] [facility] [address] [address]231- [address]90 16 Apr, 2017 [facility] [address] [address]- [address] Apr, Lumbar neuritis M54.16 [facility] [address] [address]32- 1329 Mar, Lumbar neuritis M54.16 [facility] [address] [address]- [address] Feb, Lumbar neuritis M54.16 [facility] [address] [address] 2544 Feb, Anxiety F41.[address] [facility] [address] 31335- 6436 14 Feb, 2017 [facility] [id number] [place] [address] 10650- 8955 23 Jan, [address] [facility] [address] 68308- 4130 Jan, Se[address]ures R56.9 [facility] [id number] [place] [address] 60377- 0686 Jan, [facility] [id number] [place] [address] 60705- 1151 Dec, Lumbar neuritis M54.16 [facility] [id number] [place] [address] 57219- 1319 Dec, [facility] [id number] [place] [address] 45304- 8291 Nov, Lumbar neuritis M54.16 [facility] [id number] [place] [address] 58890- 5895 Nov, [facility] [id number] [place] [address] 25948- 7922 Nov, [facility] [address] 86729- 6158 Nov, Lumbar neuritis M54.16 [facility] [id number] [place] [address] 53793- 0456 Oct, Lumbar neuritis M54.16 [facility] [id number] [place] [address] 99584- 8270 Sep, Lumbago with sciatica, right side M54.[address] [facility] [id number] [place] [address] 95384- 3813 Sep, Lumbar neuritis M54.16 [facility] [id number] [place] [address] 88932- 6936 August, Lumbar neuritis M54.[address] [facility] [id number] [place] [address] 70494- 1183 August, Simple chronic bronchitis J41.0 ; Hemoptysis R04.2 and Cigarette nicotine dependence without complication F17.210 [facility] [id number] [place] [address]- [address] Jul, Lumbago with sciatica, right side M54.41 [place] [address] 9[address]26- 1027 Jul, Lumbago with sciatica, right side M54.41 [place] [id number] [place] [address] 76069- 1363 Jun, Lumbago with sciatica, right side M54.41 [place] [id number] [place] [address] 39348- 6064 Jun, Lumbago with sciatica, right side M54.41 [place] [address] 12311- 7912 Jun, Lumbago with sciatica, right side M54.41 [facility] [id number] [place] [address] 11844 -6471 Jun, Gastroenteritis K52.9 [place] [id number] [place] [address] 99323- 0504 May, Seizures R56.9 ; Tobacco use Z72.0 ; Tobacco abuse counseling Z71.6 ; Tooth abscess K04.7 ; Pain in right leg M79.604 ; Pain of left leg M79.605 ; Other chronic pain G89.29 and Neuropathy G62.9 [place] [id number] [place] [address] 14906- 8499 May, Lumbago with sciatica, right side M54.41 [place] [id number] [place] [address] 90954- 7666 Apr, Lumbago with sciatica, right side M54.41 [place] [id number] [place] [address] 59989- 3258 Mar, Lumbago with sciatica, right side M54.41 [place] [id number] [place] [address] 66404- 2250 Mar, [facility] [id number] [address] Mar, Lumbago with sciatica, right side M54.41 [facility] [address] [id number] [address]- 2399 Feb, Lumbago with sciatica, right side M54.41 and Other chronic pain G89.29 [facility] [id number] [place] [address] 14777- 2943 Feb, [facility] [id number] [place] [address] 39985- 2014 Nov, Dental caries K02.9 [facility] [address] [address]- 7[address] Oct, Dental examination Z01.20 [facility] [id number] [place] [address] 47983- 5867 Jul, Dental examination Z01.20 [facility] [id number] [place] [address] 28692- 6012 Jul, Dental examination Z01.20 [address] Dental caries K02.9 [facility] [address] [address]- 8715 Jun, Dental examination Z01.20 [facility] [address] [address]- 7328 14 Jul, 2014 [facility] [address] [address] Jul, [facility] [address] [address] Apr, [facility] [id number] [address] 7479 Apr, [facility] [address] [address]- 0729 Mar, [facility] [place] [facility] [address] [id number] [place] [address]- 1835 Mar, [facility] [place] [facility] [address] [id number] [place] [address]- 5594 Nov, [facility] [place] [facility] [address] [id number] [place] [address]- 5395 Nov, [facility] [place] [facility] [address] [id number] [place] [address]- 9068 Nov, [facility] [place] [facility] [address] [id number] [place] [address]- 5831 Nov, [facility] [place] [facility] [address] [id number] [place] [address]- 6420 Oct, [facility] [place] [facility] [address] [id number] [place] [address]- 7013 Oct, [facility] [place] [facility] [address] [id number] [place] [address]- 5498 Sep, [facility] [place] [facility] [address] [id number] [place] [address]- 8361 Sep, [facility] [place] [facility] [address] [id number] [place] [address]- 3711 August, [facility] [place] [facility] [address] [id number] [place] [address]- 0068 August, [facility] [place] [facility] [address] [id number] [place] [address]- 3891 Jul, [facility] [place] [facility] [address] [id number] [place] [address]- 7883 Jul, [facility] [place] [facility] [address] [id number] [place] [address]- 8294 Jul, [facility] [place] [facility] [address] [id number] [place] [address]- 5434 Jul, [facility] [place] [facility] [address] [id number] [place] [address]- 7751 Jul, [facility] [place] [facility] [address] [id number] [place] [address]- 2012 Jul, [facility] [place] [facility] [address] [id number] [place] [address]- 4625 Jul, [facility] [place] [facility] [address] [id number] [place] [address]- 1233 Jul, [facility] [place] [facility] [address] [id number] [place] [address]- 0776 Jul, [facility] [place] [facility] [address] [id number] [place] [address]- 9614 Jul, [facility] [place] [facility] [address] [id number] [place] [address]- 3875 Jun, [facility] [place] [facility] [address] [facility] [id number] [place] [address]- 7221 Jun, [facility] [place] [facility] [address] [id number] [place] [address]- 9202 Jun, [facility] [place] [facility] [address] [id number] [place] [address]- 6829 Jun, [facility] [place] [facility] [address] [facility] [id number] [place] [address]- 0017 Jun, [facility] [place] [facility] [address] [id number] [place] [address]- 8794 Jun, [facility] [place] [facility] [address] [id number] [place] [address]- 8468 May, [facility] [place] [facility] [address] [id number] [place] [address]- 8627 May, [facility] [place] [facility] [address] [id number] [place] [address]- 5991 May, [facility] [place] [facility] [address] [facility] [id number] [place] [address]- 8411 May, [facility] [place] [facility] [address] [id number] [place] [address]- 9634 Apr, [facility] [place] [facility] [address] [id number] [place] [address]- 7363 Apr, [facility] [place] [facility] [address] [id number] [place] [address]- 6756 Apr, [facility] [place] [facility] [address] [id number] [place] [address]- 7760 Apr, [facility] [place] [facility] [address] [id number] [place] [address]- 1221 Apr, [facility] [place] [facility] [address] [id number] [place] [address]- 2761 Apr, [facility] [place] [facility] [address] [id number] [place] [address]- 3113 Feb, [facility] [place] [facility] [address] [id number] [place] [address]- 4875 Feb, [facility] [place] [facility] [address] [id number] [place] [address]- 7448 Feb, [facility] [place] [facility] [address] [id number] [place] [address]- 1046 Feb, [facility] [place] [facility] [address] [id number] [place] [address]- 8126 Feb, [facility] [place] [facility] [address] [id number] [place] [address]- 8557 Feb, [facility] [place] [facility] [address] [id number] [place] [address]- 6494 Jan, [facility] [place] [facility] [address] [id number] [place] [address]- 3015 Jan, [facility] [place] [facility] [address] [id number] [place] [address]- 2989 Jan, [facility] [place] [facility] [address] [id number] [place] [address]- 1661 Jan, [facility] [address] [id number] [place] [address]- 6566 Jan, [facility] [place] [facility] [address] [id number] [place] [address]- 9276 Nov, [facility] [place] [facility] [address] [id number] [place] [address]- 2634 Oct, [facility] [place] [facility] [address] [id number] [place] [address]- 8618 Sep, [facility] [place] [facility] [address] [id number] [place] [address]- 2554 Sep, [facility] [place] [facility] [address] [id number] [place] [address]- 9023 August, [facility] [place] [facility] [address] [id number] [place] [address]- 3386 Jul, [facility] [place] [facility] [address] [id number] [place] [address]- 2009 Jul, [facility] [place] [facility] [address] [id number] [place] [address]- 7617 Jun, [facility] [place] [facility] [address] [id number] [place] [address]- 3429 Jun, [facility] [place] [facility] [address] [id number] [address]- 4948 Jun, [facility] [place] [facility] [address] [id number] [address]- 0026 Jun, [facility] [place] [facility] [address] [id number] [place] [address] 2541 Jun, [facility] [place] [facility] [address] [id number] [place] [address]- 2386 05 Jun, 2012 [facility] [place] [facility] [address] [id number] [place] [address]- 2546 Apr, [facility] [place] [facility] [address] [id number] [place] 5652 Mar, [facility] [place] [facility] [address] [id number] [place] 0435 Mar, [facility] [place] [facility] [address] [id number] [place] [address]- 8566 Feb, [facility] [place] [facility] [address] [id number] [place] [address]- 9006 Feb, [facility] [place] [facility] [address] [id number] [place] [address]- 0886 Feb, [facility] [place] [facility] [address] [id number] [place] [address]- 2666 Feb, [facility] [place] [facility] [address] [id number] [place] [address]- 9498 Feb, [facility] [place] [facility] [address] [facility] [id number] [place] [address]- 2545 Feb, [facility] [place] [facility] [address] [id number] [place] [address]- 4589 Feb, [facility] [place] [facility] [address] [facility] [id number] [place] [address]- 0473 Feb, [facility] [place] [facility] [address] [facility] [id number] [place] [address]- 6983 Jan, [facility] [place] [facility] [address] [id number] [place] [address]- 5899 Jan, [facility] [place] [facility] [address] [facility] [id number] [place] 2097 Jan, [facility] [place] [facility] [address] [id number] [place] [address]- 0359 Dec, [facility] [place] [facility] [address] [facility] [id number] [place] [address]- 4440 Dec, [facility] [place] [facility] [address] [id number] [place] 9172 Dec, [facility] [place] [facility] [address] [id number] [place] [address]- 1261 Dec, [facility] [place] [facility] [address] [id number] [place] [address]- 3939 Dec, [facility] [address] [id number] [place] [address]- 6924 Dec, [facility] [place] [facility] [address] [id number] [place] [address]- 3768 Nov, [facility] [address] [id number] [place] [address]- 4523 Oct, [facility] [address] [id number] [place] [address]- 6417 Oct, [facility] [address] [id number] [place] [address]- 9378 Oct, [facility] [address] [id number] [place] [address]- 4542 Sep, [facility] [address] [id number] [place] [address]- 5998 August, [facility] [address] [id number] [place] [address]- 1738 August, [facility] [address] [id number] [place] [address]- 2910 Jul, [facility] [place] [facility] [address] [id number] [place] [address]- 6213 Jul, [facility] [place] [facility] [address] [id number] [place] [address]- 3932 Jul, [facility] [place] [facility] [address] [id number] [place] [address]- 1926 Jul, [facility] [place] [facility] [address] [id number] [place] [address]- 6445 Jun, [facility] [place] [facility] [address] [id number] [address]- 7226 Jun, [facility] [address] [address] 1267 Jun, [facility] [address] [address] Jun, [facility] [address] [address] 5238 Jun, [facility] [address] [address] 4525 Jun, [facility] [address] [address] 1194 Jun, [facility] [id number] [place] [address]- 4586 Jun, [facility] [address] [address] 7326 May, [facility] [address] [address]- [address] Apr, [facility] [address] [address]- 2318 Feb, IMMUNIZATIONS No Known Immunizations SOCIAL HISTORY Never Assessed REASON FOR VISIT med refill PLAN OF CARE VITAL SIGNS MEDICATIONS Unknown Medications RESULTS No Results PROCEDURES No Known procedures [...]
--- OUTSIDE RECORDS SUMMARY | 2018-06-26 17:09 | XMS REPORT ---
Author Author YOLETTE DUNLAP Organization [facility] Address [address] [place] [address] Care Team Providers [employer] Name Role Phone YOLETTE DUNLAP Unavailable PROBLEMS Type Condition ICD9-CM Code VVD68-NW Code Onset Dates Condition Status SNOMED Code Problem Other chronic pain G89.29 Active 06899149 Problem Other chronic pain G89.29 Active 02277169 Problem Seizures R56.9 Active 81697378 Problem Lumbago with sciatica, right side M54.41 Active 031429879 Problem Polysubstance (including opioids) dependence, daily use F19.20 Active 037013420 Problem Neuropathy G62.9 Active 855483537 Problem Cigarette nicotine dependence without complication F17.210 Active 71500900 Problem Gastroenteritis K52.9 Active 60725142 Problem Anxiety F41.9 Active 52690055 Problem Simple chronic bronchitis J41.0 Active 13746039 ALLERGIES Substance Reaction Event Type Date Status Tramadol HCl Pt states induces seizures Drug Allergy Oct, Active Penicillamine Unknown Drug Allergy Oct, Active Dilantin hives Drug Allergy Oct, Active BusPIRone HCl Pt states induces seizures Drug Allergy Oct, Active ENCOUNTERS Encounter Location Date Diagnosis [facility] [id number] [place] [address] 04337- 9106 Dec, [facility] [id number] [place] [address] 86259- 1756 Nov, Neuropathy G62.9 ; Seizures R56.9 and Polysubstance ( including opioids) dependence, daily use F19.20 [facility] [id number] [place] [address] 58961- 3787 Oct, [facility] [address] [address] 0173 Oct, Seizures R56.9 [facility] [id number] [place] [address] 96603- 8625 09 Oct, 2017 Seizures R56.9 and Neuropathy G62.9 [facility] [address] 00088- 9066 18 Sep, 2017 Seizures R56.9 ; Neuropathy G62.9 and Tinea pedis of both feet B35.3 [facility] [address] 85918- 6356 15 Sep, 2017 [facility] [address] 29744- 5609 Sep, Seizures R56.9 [facility] [address] 24507- 0646 August, [facility] [address] 35225- 7560 Jun, [facility] [address] 82838- 1847 Apr, Lumbar neuritis M54.16 [facility] [address] 85886- 2246 Apr, [facility] [id number] [place] [address] 34385- 1379 Apr, Lumbar neuritis M54.16 [facility] [id number] [place] [address] 71009- 2496 Mar, Lumbar neuritis M54.16 [facility] [id number] [place] [address] 18018- 2581 Feb, Lumbar neuritis M54.16 [facility] [id number] [place] [address] 42249- 2786 Feb, Anxiety F41.9 and Seizures R56.9 [facility] [id number] [place] [address] 94049 2546 14 Feb, 2017 [facility] [id number] [place] [address] 75012- 0292 Jan, Lumbar neuritis M54.16 [facility] [id number] [place] [address] 28682- 5886 Jan, Seizures R56.9 [facility] [id number] [place] [address] 89553- 8816 Jan, [facility] [id number] [place] [address] 12166- 7246 Dec, Lumbar neuritis M54.16 [facility] [id number] [place] [address] 24790- 3616 Dec, [facility] [id number] [place] [address] 44738- 0371 Nov, Lumbar neuritis M54.16 [facility] [id number] [place] [address] 63159- 5566 Nov, [facility] [id number] [place] [address] 09007- 6454 Nov, [facility] [id number] [place] [address] 77427- 3348 Nov, Lumbar neuritis M54.16 [facility] [id number] [place] [address] 52701- 4336 Oct, Lumbar neuritis M54.16 [facility] [id number] [place] [address] 02462- 0247 Sep, Lumbago with sciatica, right side M54.41 and Seizures R56.9 [facility] [id number] [place] [address] 30886- 2246 Sep, Lumbar neuritis M54.16 [facility] [id number] [place] [address] 36906- 7086 August, Lumbar neuritis M54.16 and Anxiety F41.9 [facility] [address] [place] [address]- 3370 August, Simple chronic bronchitis J41.0 ; Hemoptysis R04.2 and Cigarette nicotine dependence without complication F17.210 [place] [id number] [place] [address] 06571- 8003 Jul, Lumbago with sciatica, right side M54.41 [place] [address] 91981- 2891 Jul, Lumbago with sciatica, right side M54.41 [place] [address] 02456- 5204 Jun, Lumbago with sciatica, right side M54.41 [place] [address] 88452- 5671 Jun, Lumbago with sciatica, right side M54.41 [place] [address] 08422- 1272 Jun, Lumbago with sciatica, right side M54.41 [facility] [address] 28847 -8941 Jun, Gastroenteritis K52.9 [place] [id number] [place] [address] 61518- 6473 May, Seizures R56.9 ; Tobacco use Z72.0 ; Tobacco abuse counseling Z71.6 ; Tooth abscess K04.7 ; Pain in right leg M79.604 ; Pain of left leg M79.605 ; Other chronic pain G89.29 and Neuropathy G62.9 [place] [address] 03976- 4441 May, Lumbago with sciatica, right side M54.41 [place] [address] 62507- 3349 Apr, Lumbago with sciatica, right side M54.41 [place] [address] [address]- 3882 Mar, Lumbago with sciatica, right side M54.41 [facility] [id number] [place] [address] 94192- 8312 Mar, [facility] [id number] [place] [address] 13076- 8116 Mar, Lumbago with sciatica, right side M54.41 [facility] [id number] [place] [address] 24381- 9990 Feb, Lumbago with sciatica, right side M54.41 and Other chronic pain G89.29 [facility] [id number] [place] [address] 51721- 0348 Feb, [facility] [address] [address]- 7432 Nov, Dental caries K02.9 [facility] [address] [address]- 0534 Oct, Dental examination Z01.20 [facility] [id number] [place] [address] 26920- 7811 Jul, Dental examination Z01.20 [facility] [address] [address]- 8637 Jul, Dental examination Z01.20 and Dental caries K02.9 [facility] [address] [address]- 5580 Jun, Dental examination Z01.20 [facility] [address] [address]- 1134 Jul, [facility] [id number] [place] [address] 14094- 1586 Jul, [facility] [address] [address]- 5839 Apr, [facility] [place] [facility] [address] [id number] [place] [address]- 9375 Apr, [facility] [address] [id number] [place] [address]- 8217 Mar, [facility] [place] [facility] [address] [id number] [place] [address]- 7591 Mar, [facility] [place] [facility] [address] [id number] [place] [address]- 6254 Nov, [facility] [place] [facility] [address] [id number] [place] [address]- 3460 Nov, [facility] [place] [facility] [address] [id number] [place] [address]- 2024 Nov, [facility] [place] [facility] [address] [id number] [place] [address]- 2513 Nov, [facility] [place] [facility] [address] [id number] [place] [address]- 1975 Oct, [facility] [address] [id number] [place] [address]- 7392 Oct, [facility] [place] [facility] [address] [id number] [place] [address]- 3276 Sep, [facility] [place] [facility] [address] [id number] [place] [address]- 6526 Sep, [facility] [place] [facility] [address] [id number] [place] [address]- 9139 August, [facility] [place] [facility] [address] [id number] [place] [address]- 9260 August, [facility] [place] [facility] [address] [id number] [place] [address]- 3323 Jul, [facility] [place] [facility] [address] [id number] [place] [address]- 7413 Jul, [facility] [place] [facility] [address] [id number] [place] [address]- 2726 Jul, [facility] [place] [facility] [address] [id number] [place] [address]- 9862 Jul, [facility] [place] [facility] [address] [id number] [place] [address]- 9651 Jul, [facility] [place] [facility] [address] [id number] [place] [address]- 0566 Jul, [facility] [place] [facility] [address] [id number] [place] [address]- 8301 Jul, [facility] [place] [facility] [address] [id number] [place] [address]- 4512 Jul, [facility] [place] [facility] [address] [id number] [place] [address]- 9005 Jul, [facility] [place] [facility] [address] [id number] [place] [address]- 8049 Jul, [facility] [place] [facility] [address] [id number] [place] [address]- 3118 Jun, [facility] [place] [facility] [address] [id number] [place] [address]- 5609 Jun, [facility] [place] [facility] [address] [id number] [place] [address]- 4851 Jun, [facility] [place] [facility] [address] [id number] [place] [address]- 2993 Jun, [facility] [place] [facility] [address] [id number] [place] [address]- 9029 Jun, [facility] [place] [facility] [address] [id number] [place] [address]- 0992 Jun, [facility] [place] [facility] [address] [id number] [place] [address]- 0944 May, [facility] [place] [facility] [address] [id number] [place] [address]- 8557 May, [facility] [place] [facility] [address] [id number] [place] [address]- 6192 May, [facility] [address] [id number] [place] [address]- 9676 May, [facility] [place] [facility] [address] [id number] [place] [address]- 5885 Apr, [facility] [place] [facility] [address] [id number] [place] [address]- 4488 Apr, [facility] [place] [facility] [address] [id number] [place] [address]- 3831 Apr, [facility] [place] [facility] [address] [id number] [place] [address]- 2851 Apr, [facility] [place] [facility] [address] [id number] [place] [address]- 6775 Apr, [facility] [place] [facility] [address] [id number] [place] [address]- 7636 Apr, [facility] [place] [facility] [address] [id number] [place] [address]- 3455 Feb, [facility] [place] [facility] [address] [id number] [place] [address]- 0485 Feb, [facility] [place] [facility] [address] [facility] [id number] [place] [address]- 7152 Feb, [facility] [place] [facility] [address] [id number] [place] [address]- 8028 Feb, [facility] [place] [facility] [address] [id number] [place] [address]- 8438 Feb, [facility] [place] [facility] [address] [id number] [place]- 3689 Feb, [facility] [place] [facility] [address] [id number] [place] [address]- 3262 Jan, [facility] [place] [facility] [address] [id number] [place] [address]- 8421 Jan, [facility] [place] [facility] [address] [id number] [place] [address]- 3154 Jan, [facility] [address] [id number] [place] [address]- 4761 Jan, [facility] [address] [id number] [place] [address]- 3633 Jan, [facility] [address] [id number] [place] [address]- 8781 Nov, [facility] [address] [id number] [place] [address]- 1341 Oct, [facility] [place] [facility] [address] [id number] [place] [address]- 5110 Sep, [facility] [address] [id number] [place] [address]- 8194 Sep, [facility] [address] [id number] [place] [address]- 5805 August, [facility] [address] [id number] [place] [address]- 8285 Jul, [facility] [address] [id number] [place] [address]- 0009 Jul, [facility] [address] [id number] [place] [address]- 4098 Jun, [facility] [place] [facility] [address] [id number] [place] [address]- 1401 Jun, [facility] [place] [facility] [address] [id number] [place] [address]- 6842 Jun, [facility] [place] [facility] [address] [id number] [place] [address]- 2357 Jun, [facility] [place] [facility] [address] [id number] [place] [address]- 8258 06 Jun, 2012 [facility] [place] [facility] [address] [id number] [address]- 6445 Jun, [facility] [place] [facility] [address] [id number] [place] [address]- 2886 Apr, [facility] [place] [facility] [address] [id number] [place] 7336 Mar, [facility] [place] [facility] [address] [id number] [place] [address]- 0107 Mar, [facility] [place] [facility] [address] [id number] [place] [address]- 3546 Feb, [facility] [place] [facility] [address] [id number] [place] [address]- 8675 Feb, [facility] [place] [facility] [address] [id number] [place] [address]- 7521 Feb, [facility] [place] [facility] [address] [id number] [place] [address]- 9846 Feb, [facility] [place] [facility] [address] [id number] [place] [address]- 8985 Feb, [facility] [place] [facility] [address] [id number] [address]- 6379 Feb, [facility] [place] [facility] [address] [id number] [place] [address]- 0365 Feb, [facility] [place] [facility] [address] [id number] [address]- 3951 Feb, [facility] [place] [facility] [address] [id number] [address]- 5394 Jan, [facility] [place] [facility] [address] [id number] [address]- 3966 Jan, [facility] [place] [facility] [address] [id number] [place] [address]- 4364 Jan, [facility] [place] [facility] [address] [id number] [place] [address]- 8162 Dec, [facility] [place] [facility] [address] [id number] [place] [address]- 1857 24 Dec, 2011 [facility] [address] [id number] [place] [address]- 9428 24 Dec, 2011 [facility] [place] [facility] [address] [id number] [place] [address]- 4646 18 Dec, 2011 [facility] [address] [id number] [place] [address]- 3386 18 Dec, 2011 [facility] [address] [id number] [place] [address]- 1572 17 Dec, 2011 [facility] [address] [id number] [place] [address]- 8251 Nov, [facility] [address] [id number] [place] [address]- 2973 Oct, [facility] [address] [id number] [place] [address]- 3606 Oct, [facility] [address] [id number] [place] [address]- 8421 Oct, [facility] [address] [id number] [place] [address]- 7903 Sep, [facility] [address] [id number] [place] [address]- 4085 August, [facility] [place] [facility] [address] [id number] [place] [address]- 0678 August, [facility] [address] [id number] [place] [address]- 4967 Jul, [facility] [place] [facility] [address] [id number] [place] [address]- 4489 Jul, [facility] [address] [id number] [place] [address]- 7226 Jul, [facility] [place] [facility] [address] [id number] [place] [address]- 5216 Jul, [facility] [address] [address]- 4479 Jun, [facility] [address] [address]- 6608 Jun, [facility] [address] [address]- 2843 Jun, [facility] [address] [address]- 5673 Jun, [facility] [address] [address]- 4876 Jun, [facility] [address] [address]- 6460 Jun, [facility] [address] [address]- 2672 Jun, [facility] [address] [address]- 1361 Jun, [facility] [address] [address]- 1977 May, [facility] [address] [address]- 0381 Apr, [facility] [id number] [address]- 7841 Feb, IMMUNIZATIONS No Known Immunizations SOCIAL HISTORY Never Assessed REASON FOR VISIT Seizure f/u-JEFFERY blanc PLAN OF CARE VITAL SIGNS Height 70 in 2017-11-10 Weight 132.1 lbs 2017-11-10 Temperature 98.3 degrees Fahrenheit 2017-11-10 Heart Rate 95 bpm 2017-11-10 Respiratory Rate 20 2017-11-10 BMI 18.95 kg/m2 2017-11-10 Blood pressure systolic 98 mmHg 2017-11-10 Blood pressure diastolic 78 mmHg 2017-11-10 MEDICATIONS Medication Instructions Dosage Frequency Start Date End Date Duration Status Topiramate 200 MG TAKE ONE TABLET BY MOUTH TWICE DAILY 90 Active Omeprazole 20 mg Orally Once a day TAKE ONE CAPSULE BY MOUTH ONCE DAILY 24h 90 days Active Terbinafine HCl 1 % Externally Twice a day 1 application to affected area 12h Sep, Active Prilosec 20 mg Orally Once a day 1 capsule 24h Not-Taking Viagra 100 MG TAKE ONE TABLET BY MOUTH ONCE A DAY NEEDED 10 Not-Taking Topamax 200 MG Orally Twice a day 1 Tablet by Oral route 2 daily 12h Apr 90 Not-Taking Keppra 750 MG Orally Twice a day 1 tablet 12h Sep, 30 day(s) Active Viagra 100 mg Orally Once a day 1 tablet as needed 24h Sep, Active Naproxen 500 mg Orally every 12 hrs 1 tablet as needed 12h Jan, Not-Taking RESULTS No Results PROCEDURES No Known procedures [...]
--- OUTSIDE RECORDS SUMMARY | 2018-06-26 17:10 | XMS REPORT ---
Author Author YOLETTE DUNLAP Organization [facility] Address [address] [place] [address] Care Team Providers Care Boiler Repair Supervisor Name Role Phone YOLETTE DUNLAP Unavailable PROBLEMS Type Condition ICD9-CM Code NAX03-ZP Code Onset Dates Condition Status SNOMED Code Problem Other chronic pain G89.29 Active 71072641 Problem Other chronic pain G89.29 Active 61014608 Problem Seizures R56.9 Active 10267821 Problem Lumbago with sciatica, right side M54.41 Active 676268373 Problem Polysubstance (including opioids) dependence, daily use F19.20 Active 236146738 Problem Neuropathy G62.9 Active 083188749 Problem Cigarette nicotine dependence without complication F17.210 Active 35015601 Problem Gastroenteritis K52.9 Active 01312708 Problem Anxiety F41.9 Active 25670890 Problem Simple chronic bronchitis J41.0 Active 32413932 ALLERGIES No Information ENCOUNTERS Encounter Location Date Diagnosis [facility] [address] [address] Dec, [facility] [address] [address]- [address] Nov, Neuropathy G62.9 ; Seizures R56.9 and Polysubstance ( including opioids) dependence, daily use F19.20 [facility] [id number] [place] [address]886- 3555 Oct, [facility] [address] [address]- [address] Oct, Seizures R56.9 [facility] [address] [address]991- 0710 Oct, Seizures R56.9 and Neuropathy G62.9 [facility] [address] [address]26- 6144 18 Sep, 2017 Seizures R56.9 ; Neuropathy G62.9 and Tinea pedis of both feet B35.3 [facility] [address] [address]92- 5977 15 Sep, 2017 [facility] [address] 7[address]18- 5326 11 Sep, 2017 Seizures R56.9 [facility] [address] 8[address]80- 5981 August, [facility] [address] 05136- 1810 Jun, [facility] [address] [address]- [address] 18 Apr, 2017 Lumbar neuritis M54.16 [facility] [address] 8[address]16- 4339 16 Apr, 2017 [facility] [address] 81130- 7398 Apr, Lumbar neuritis M54.16 [facility] [address] 45788- 0473 Mar, Lumbar neuritis M54.16 [facility] [address] 25615- 7991 Feb, Lumbar neuritis M54.16 [facility] [address] [address] 2544 Feb, Anxiety F41.9 and Seizures R56.9 [facility] [address] 36030- 5026 14 Feb, 2017 [facility] [id number] [place] [address] 51201- 2471 23 Jan, 2017 Lumbar neuritis M54.16 [facility] [address] 12121- 4746 Jan, Seizures R56.9 [facility] [id number] [place] [address] 27188- 8269 Jan, [facility] [id number] [place] [address] 38871- 3832 Dec, Lumbar neuritis M54.16 [facility] [id number] [place] [address] 90806- 7182 Dec, [facility] [id number] [place] [address] 96587- 3039 Nov, Lumbar neuritis M54.16 [facility] [id number] [place] [address] 00649- 5966 Nov, [facility] [id number] [place] [address] 76108- 2330 Nov, [facility] [address] 86831- 0260 Nov, Lumbar neuritis M54.16 [facility] [id number] [place] [address] 93358- 0595 Oct, Lumbar neuritis M54.16 [facility] [id number] [place] [address] 57677- 7326 Sep, Lumbago with sciatica, right side M54.41 and Seizures R56.9 [facility] [id number] [place] [address] 80871- 8356 Sep, Lumbar neuritis M54.16 [facility] [id number] [place] [address] 58899- 5300 August, Lumbar neuritis M54.16 and Anxiety F41.9 [facility] [id number] [place] [address] 18726- 7556 August, Simple chronic bronchitis J41.0 ; Hemoptysis R04.2 and Cigarette nicotine dependence without complication F17.210 [facility] [id number] [place] [address]- 0362 Jul, Lumbago with sciatica, right side M54.41 [place] [address] 11660- 2579 Jul, Lumbago with sciatica, right side M54.41 [place] [id number] [place] [address] 39673- 4391 Jun, Lumbago with sciatica, right side M54.41 [place] [id number] [place] [address] 50283- 6537 Jun, Lumbago with sciatica, right side M54.41 [place] [address] 14395- 2730 Jun, Lumbago with sciatica, right side M54.41 [facility] [id number] [place] [address] 84717 -4293 Jun, Gastroenteritis K52.9 [place] [id number] [place] [address] 83646- 4139 May, Seizures R56.9 ; Tobacco use Z72.0 ; Tobacco abuse counseling Z71.6 ; Tooth abscess K04.7 ; Pain in right leg M79.604 ; Pain of left leg M79.605 ; Other chronic pain G89.29 and Neuropathy G62.9 [place] [id number] [place] [address] 17328- 1136 May, Lumbago with sciatica, right side M54.41 [place] [id number] [place] [address] 44223- 5997 Apr, Lumbago with sciatica, right side M54.41 [place] [id number] [place] [address] 97975- 9514 Mar, Lumbago with sciatica, right side M54.41 [place] [id number] [place] [address] 44070- 1838 Mar, [facility] [address] [id number] [address]- 3922 Mar, Lumbago with sciatica, right side M54.41 [facility] [address] [id number] [address]- 0232 Feb, Lumbago with sciatica, right side M54.41 and Other chronic pain G89.29 [facility] [id number] [place] [address] 89587- 4520 Feb, [facility] [id number] [place] [address] 72382- 9037 Nov, Dental caries K02.9 [facility] [address] [address]- 5187 Oct, Dental examination Z01.20 [facility] [id number] [place] [address] 75682- 0782 Jul, Dental examination Z01.20 [facility] [id number] [place] [address] 75390- 6900 Jul, Dental examination Z01.20 and Dental caries K02.9 [facility] [address] [address]- 4828 Jun, Dental examination Z01.20 [facility] [address] [address]- 8731 14 Jul, 2014 [facility] [address] [address]- 2410 Jul, [facility] [address] [address]- 0418 Apr, [facility] [id number] [address]- 4154 Apr, [facility] [address] [place] [address]- 2657 Mar, [facility] [place] [facility] [address] [id number] [place] [address]- 7838 Mar, [facility] [place] [facility] [address] [id number] [place] [address]- 8093 Nov, [facility] [place] [facility] [address] [id number] [place] [address]- 0253 Nov, [facility] [place] [facility] [address] [id number] [place] [address]- 2542 Nov, [facility] [place] [facility] [address] [id number] [place] [address]- 5065 Nov, [facility] [place] [facility] [address] [id number] [place] [address]- 8426 Oct, [facility] [place] [facility] [address] [id number] [place] [address]- 7746 Oct, [facility] [place] [facility] [address] [id number] [place] [address]- 3459 Sep, [facility] [place] [facility] [address] [id number] [place] [address]- 3002 Sep, [facility] [place] [facility] [address] [id number] [place] [address]- 3662 August, [facility] [place] [facility] [address] [id number] [place] [address]- 2625 August, [facility] [place] [facility] [address] [id number] [place] [address]- 4469 Jul, [facility] [place] [facility] [address] [id number] [place] [address]- 4229 Jul, [facility] [place] [facility] [address] [id number] [place] [address]- 3453 Jul, [facility] [place] [facility] [address] [id number] [place] [address]- 1581 Jul, [facility] [place] [facility] [address] [id number] [place] [address]- 7903 Jul, [facility] [place] [facility] [address] [id number] [place] [address]- 7074 Jul, [facility] [place] [facility] [address] [id number] [place] [address]- 9925 Jul, [facility] [place] [facility] [address] [id number] [place] [address]- 8507 Jul, [facility] [place] [facility] [address] [id number] [place] [address]- 0572 Jul, [facility] [place] [facility] [address] [id number] [place] [address]- 6598 Jul, [facility] [place] [facility] [address] [id number] [place] [address]- 4877 Jun, [facility] [place] [facility] [address] [facility] [id number] [place] [address]- 5615 Jun, [facility] [place] [facility] [address] [id number] [place] [address]- 7005 Jun, [facility] [place] [facility] [address] [id number] [place] [address]- 9843 Jun, [facility] [place] [facility] [address] [facility] [id number] [place] [address]- 3598 Jun, [facility] [place] [facility] [address] [id number] [place] [address]- 5375 Jun, [facility] [place] [facility] [address] [id number] [place] [address]- 5271 May, [facility] [place] [facility] [address] [id number] [place] [address]- 5432 May, [facility] [place] [facility] [address] [id number] [place] [address]- 8028 May, [facility] [place] [facility] [address] [facility] [id number] [place] [address]- 7631 May, [facility] [place] [facility] [address] [id number] [place] [address]- 0651 Apr, [facility] [place] [facility] [address] [id number] [place] [address]- 7062 Apr, [facility] [place] [facility] [address] [id number] [place] [address]- 6588 Apr, [facility] [place] [facility] [address] [id number] [place] [address]- 0425 Apr, [facility] [place] [facility] [address] [id number] [place] [address]- 8946 Apr, [facility] [place] [facility] [address] [id number] [place] [address]- 4927 Apr, [facility] [place] [facility] [address] [id number] [place] [address]- 2963 Feb, [facility] [place] [facility] [address] [id number] [place] [address]- 6686 Feb, [facility] [place] [facility] [address] [id number] [place] [address]- 5864 Feb, [facility] [place] [facility] [address] [id number] [place] [address]- 6477 Feb, [facility] [place] [facility] [address] [id number] [place] [address]- 6307 Feb, [facility] [place] [facility] [address] [id number] [place] [address]- 2443 Feb, [facility] [place] [facility] [address] [id number] [place] [address]- 1979 Jan, [facility] [place] [facility] [address] [id number] [place] [address]- 2004 Jan, [facility] [place] [facility] [address] [id number] [place] [address]- 0061 Jan, [facility] [place] [facility] [address] [id number] [place] [address]- 8455 Jan, [facility] [address] [id number] [place] [address]- 9058 Jan, [facility] [place] [facility] [address] [id number] [place] [address]- 8256 Nov, [facility] [place] [facility] [address] [id number] [place] [address]- 6871 Oct, [facility] [place] [facility] [address] [id number] [place] [address]- 7697 Sep, [facility] [place] [facility] [address] [id number] [place] [address]- 2384 Sep, [facility] [place] [facility] [address] [id number] [place] [address]- 3213 August, [facility] [place] [facility] [address] [id number] [place] [address]- 6642 Jul, [facility] [place] [facility] [address] [id number] [place] [address]- 1701 Jul, [facility] [place] [facility] [address] [id number] [place] [address]- 9012 Jun, [facility] [place] [facility] [address] [id number] [place] [address]- 3469 Jun, [facility] [place] [facility] [address] [id number], [place] [address]- 5106 Jun, [facility] [place] [facility] [address] [id number], [place] [address]- 0456 Jun, [facility] [place] [facility] [address] [id number] [place] [address] 2545 Jun, [facility] [place] [facility] [address] [id number] [place] [address]- 6926 05 Jun, 2012 [facility] [place] [facility] [address] [id number] [place] [address]- 2546 Apr, [facility] [place] [facility] [address] [id number] [place] 4569 Mar, [facility] [place] [facility] [address] [id number] [place] 7383 Mar, [facility] [place] [facility] [address] [id number] [place] [address]- 9866 Feb, [facility] [place] [facility] [address] [id number] [place] [address]- 2586 Feb, [facility] [place] [facility] [address] [id number] [place] [address]- 6052 Feb, [facility] [place] [facility] [address] [id number] [place] [address]- 6853 Feb, [facility] [place] [facility] [address] [id number] [place] [address]- 7385 Feb, [facility] [place] [facility] [address] [facility] [id number] [place] [address]- 7519 Feb, [facility] [place] [facility] [address] [id number] [place] [address]- 4092 Feb, [facility] [place] [facility] [address] [facility] [id number] [place] [address]- 5278 Feb, [facility] [place] [facility] [address] [facility] [id number] [place] [address]- 2727 Jan, [facility] [place] [facility] [address] [id number] [place] [address]- 0432 Jan, [facility] [place] [facility] [address] [facility] [id number] [place] 1017 Jan, [facility] [place] [facility] [address] [id number] [place] [address]- 8230 Dec, [facility] [place] [facility] [address] [facility] [id number] [place] [address]- 5170 Dec, [facility] [place] [facility] [address] [id number] [place] [address]606 Dec, [facility] [place] [facility] [address] [id number] [place] [address]- 3753 Dec, [facility] [place] [facility] [address] [id number] [place] [address]- 0388 Dec, [facility] [address] [id number] [place] [address]- 4755 Dec, [facility] [place] [facility] [address] [id number] [place] [address]- 2894 Nov, [facility] [address] [id number] [place] [address]- 3577 Oct, [facility] [address] [id number] [place] [address]- 8563 Oct, [facility] [address] [id number] [place] [address]- 8916 Oct, [facility] [address] [id number] [place] [address]- 7185 Sep, [facility] [address] [id number] [place] [address]- 6996 August, [facility] [address] [id number] [place] [address]- 8621 August, [facility] [address] [id number] [place] [address]- 3053 Jul, [facility] [place] [facility] [address] [id number] [place] [address]- 1937 Jul, [facility] [place] [facility] [address] [id number] [place] [address]- 5547 Jul, [facility] [place] [facility] [address] [id number] [place] [address]- 0340 Jul, [facility] [place] [facility] [address] [id number] [place] [address]- 5817 Jun, [facility] [place] [facility] [address] [id number], [place] [address]- 8576 Jun, [facility] [id number] [address]- 3606 Jun, [facility] [address] [address]- 8176 Jun, [facility] [address] [address]- 1332 Jun, [facility] [address] [address]- 7926 Jun, [facility] [address] [place] [address]- 7223 Jun, [facility] [address] [place] [address]- 9366 Jun, [facility] [address] [address]- 1170 May, [facility] [address] [address]- 8844 Apr, [facility] [address] [place] [address]- 9812 Feb, IMMUNIZATIONS No Known Immunizations SOCIAL HISTORY Never Assessed REASON FOR VISIT lab order PLAN OF CARE Activity Details Pending Test CMP (OUTSIDE LAB) VITAL SIGNS MEDICATIONS Unknown Medications RESULTS Name Result Date Reference Range CT Scan : Head/Brain w/o & w/ Contrast 2017-11-01 PROCEDURES No Known procedures INSTRUCTIONS MEDICATIONS ADMINISTERED [...]
--- OUTSIDE RECORDS SUMMARY | 2018-06-26 17:10 | XMS REPORT ---
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 Name Role Phone YOLETTE DUNLAP Unavailable PROBLEMS Type Condition ICD9-CM Code HTZ35-MX Code Onset Dates Condition Status SNOMED Code Problem Other chronic pain G89.29 Active 40148919 Problem Other chronic pain G89.29 Active 68960932 Problem Seizures R56.9 Active 98318601 Problem Lumbago with sciatica, right side M54.41 Active 486536462 Problem Polysubstance (including opioids) dependence, daily use F19.20 Active 323501646 Problem Neuropathy G62.9 Active 069235231 Problem Cigarette nicotine dependence without complication F17.210 Active 91300886 Problem Gastroenteritis K52.9 Active 23118438 Problem Anxiety F41.9 Active 76332904 Problem Simple chronic bronchitis J41.0 Active 25435145 ALLERGIES Substance Reaction Event Type Date Status Tramadol HCl Pt states induces seizures Drug Allergy Sep, Active Penicillamine Unknown Drug Allergy Sep, Active Dilantin hives Drug Allergy Sep, Active BusPIRone HCl Pt states induces seizures Drug Allergy Sep, Active ENCOUNTERS Encounter Location Date Diagnosis [facility] [id number] [place] [address] 93537- 3496 Dec, [facility] [id number] [place] [address] 65848- 7279 Nov, Neuropathy G62.9 ; Seizures R56.9 and Polysubstance ( including opioids) dependence, daily use F19.20 [facility] [id number] [place] [address] 70176- 6778 Oct, [facility] [address] [address] Oct, Seizures R56.9 [facility] [id number] [place] [address] 56738- 9413 09 Oct, 2017 Seizures R56.9 and Neuropathy G62.9 [facility] [address] [address]- 5426 18 Sep, 2017 Seizures R56.9 ; Neuropathy G62.9 and Tinea pedis of both feet B35.3 [facility] [address] 84395- 0126 15 Sep, 2017 [facility] [address] 30142- 8052 Sep, Seizures R56.9 [facility] [address] 18407- 6346 August, [facility] [address] 37219- 9962 Jun, [facility] [address] 25410- 0370 Apr, Lumbar neuritis M54.16 [facility] [address] 82949- 6656 Apr, [facility] [id number] [place] [address] 87843- 9333 Apr, Lumbar neuritis M54.16 [facility] [id number] [place] [address] 14658- 5896 Mar, Lumbar neuritis M54.16 [facility] [id number] [place] [address] 53168- 8003 Feb, Lumbar neuritis M54.16 [facility] [id number] [place] [address] 71868- 4126 Feb, Anxiety F41.9 and Seizures R56.9 [facility] [id number] [place] [address] 86770 2546 14 Feb, 2017 [facility] [id number] [place] [address] 39478- 6634 Jan, Lumbar neuritis M54.16 [facility] [id number] [place] [address] 19896- 6626 Jan, Seizures R56.9 [facility] [id number] [place] [address] 97894- 5446 Jan, [facility] [id number] [place] [address] 44010- 9976 Dec, Lumbar neuritis M54.16 [facility] [id number] [place] [address] 25816- 7406 Dec, [facility] [id number] [place] [address] 53217- 1282 Nov, Lumbar neuritis M54.16 [facility] [id number] [place] [address] 01886- 6776 Nov, [facility] [id number] [place] [address] 03986- 9203 Nov, [facility] [id number] [place] [address] 17679- 1015 Nov, Lumbar neuritis M54.16 [facility] [id number] [place] [address] 26776- 6448 Oct, Lumbar neuritis M54.16 [facility] [id number] [place] [address] 99683- 3713 Sep, Lumbago with sciatica, right side M54.41 and Seizures R56.9 [facility] [id number] [place] [address] 26081- 6516 Sep, Lumbar neuritis M54.16 [facility] [id number] [place] [address] 92627- 3936 August, Lumbar neuritis M54.16 and Anxiety F41.9 [facility] [address] [place] [address]- 5377 August, Simple chronic bronchitis J41.0 ; Hemoptysis R04.2 and Cigarette nicotine dependence without complication F17.210 [facility] [id number] [place] [address] 92337- 8659 Jul, Lumbago with sciatica, right side M54.41 [facility] [address] 53718- 1739 Jul, Lumbago with sciatica, right side M54.41 [place] [address] 49958- 0805 Jun, Lumbago with sciatica, right side M54.41 [facility] [address] 45367- 2583 Jun, Lumbago with sciatica, right side M54.41 [facility] [address] 52094- 6988 Jun, Lumbago with sciatica, right side M54.41 [facility] [address] 29578 -1174 Jun, Gastroenteritis K52.9 [facility] [id number] [place] [address] 93219- 0705 May, Seizures R56.9 ; Tobacco use Z72.0 ; Tobacco abuse counseling Z71.6 ; Tooth abscess K04.7 ; Pain in right leg M79.604 ; Pain of left leg M79.605 ; Other chronic pain G89.29 and Neuropathy G62.9 [place] [address] 97825- 7702 May, Lumbago with sciatica, right side M54.41 [place] [address] 81203- 9985 Apr, Lumbago with sciatica, right side M54.41 [place] [address] [address]- 2789 Mar, Lumbago with sciatica, right side M54.41 [facility] [id number] [place] [address] 37728- 5036 Mar, [facility] [id number] [place] [address] 91884- 8830 Mar, Lumbago with sciatica, right side M54.41 [facility] [id number] [place] [address] 59676- 3777 Feb, Lumbago with sciatica, right side M54.41 and Other chronic pain G89.29 [facility] [id number] [place] [address] 21751- 6347 Feb, [facility] [address] [address]- 5639 Nov, Dental caries K02.9 [facility] [address] [address]- 2401 Oct, Dental examination Z01.20 [facility] [id number] [place] [address] 30382- 7486 Jul, Dental examination Z01.20 [facility] [address] [address]- 9870 Jul, Dental examination Z01.20 and Dental caries K02.9 [facility] [address] [address]- 2384 Jun, Dental examination Z01.20 [facility] [address] [address]- 4753 Jul, [facility] [id number] [place] [address] 22077- 5164 Jul, [facility] [address] [address]- 0638 Apr, [facility] [place] [facility] [address] [id number] [place] [address]- 4612 Apr, [facility] [address] [id number] [place] [address]- 9876 Mar, [facility] [place] [facility] [address] [id number] [place] [address]- 8072 Mar, [facility] [place] [facility] [address] [id number] [place] [address]- 9922 Nov, [facility] [place] [facility] [address] [id number] [place] [address]- 6484 Nov, [facility] [place] [facility] [address] [id number] [place] [address]- 6729 Nov, [facility] [place] [facility] [address] [id number] [place] [address]- 8629 Nov, [facility] [place] [facility] [address] [id number] [place] [address]- 9658 Oct, [facility] [address] [id number] [place] [address]- 6780 Oct, [facility] [place] [facility] [address] [id number] [place] [address]- 3324 Sep, [facility] [place] [facility] [address] [id number] [place] [address]- 5424 Sep, [facility] [place] [facility] [address] [id number] [place] [address]- 2287 August, [facility] [place] [facility] [address] [id number] [place] [address]- 0475 August, [facility] [place] [facility] [address] [id number] [place] [address]- 3167 Jul, [facility] [place] [facility] [address] [id number] [place] [address]- 9766 Jul, [facility] [place] [facility] [address] [id number] [place] [address]- 1656 Jul, [facility] [place] [facility] [address] [id number] [place] [address]- 9282 Jul, [facility] [place] [facility] [address] [id number] [place] [address]- 7037 Jul, [facility] [place] [facility] [address] [id number] [place] [address]- 1956 Jul, [facility] [place] [facility] [address] [id number] [place] [address]- 6283 Jul, [facility] [place] [facility] [address] [id number] [place] [address]- 2923 Jul, [facility] [place] [facility] [address] [id number] [place] [address]- 0470 Jul, [facility] [place] [facility] [address] [id number] [place] [address]- 2563 Jul, [facility] [place] [facility] [address] [id number] [place] [address]- 9479 Jun, [facility] [place] [facility] [address] [id number] [place] [address]- 8664 Jun, [facility] [place] [facility] [address] [id number] [place] [address]- 1508 Jun, [facility] [place] [facility] [address] [id number] [place] [address]- 0271 Jun, [facility] [place] [facility] [address] [id number] [place] [address]- 9025 Jun, [facility] [place] [facility] [address] [id number] [place] [address]- 5406 Jun, [facility] [place] [facility] [address] [id number] [place] [address]- 0181 May, [facility] [place] [facility] [address] [id number] [place] [address]- 1898 May, [facility] [place] [facility] [address] [id number] [place] [address]- 2296 May, [facility] [address] [id number] [place] [address]- 3374 May, [facility] [place] [facility] [address] [id number] [place] [address]- 8710 Apr, [facility] [place] [facility] [address] [id number] [place] [address]- 3280 Apr, [facility] [place] [facility] [address] [id number] [place] [address]- 8715 Apr, [facility] [place] [facility] [address] [id number] [place] [address]- 6069 Apr, [facility] [place] [facility] [address] [id number] [place] [address]- 7555 Apr, [facility] [place] [facility] [address] [id number] [place] [address]- 8041 Apr, [facility] [place] [facility] [address] [id number] [place] [address]- 5364 Feb, [facility] [place] [facility] [address] [id number] [place] [address]- 0783 Feb, [facility] [place] [facility] [address] [facility] [id number] [place] [address]- 5911 Feb, [facility] [place] [facility] [address] [id number] [place] [address]- 9640 Feb, [facility] [place] [facility] [address] [id number] [place] [address]- 9836 Feb, [facility] [place] [facility] [address] [id number] [place] 9168 Feb, [facility] [place] [facility] [address] [id number] [place] [address]- 5145 Jan, [facility] [place] [facility] [address] [id number] [place] [address]- 4090 Jan, [facility] [place] [facility] [address] [id number] [place] [address]- 4154 Jan, [facility] [address] [id number] [place] [address]- 1607 Jan, [facility] [address] [id number] [place] [address]- 4148 Jan, [facility] [address] [id number] [place] [address]- 3400 Nov, [facility] [address] [id number] [place] [address]- 3643 Oct, [facility] [place] [facility] [address] [id number] [place] [address]- 6174 Sep, [facility] [address] [id number] [place] [address]- 7576 Sep, [facility] [address] [id number] [place] [address]- 1799 August, [facility] [address] [id number] [place] [address]- 4815 Jul, [facility] [address] [id number] [place] [address]- 9287 Jul, [facility] [address] [id number] [place] [address]- 9089 Jun, [facility] [place] [facility] [address] [id number] [place] [address]- 2912 Jun, [facility] [place] [facility] [address] [id number] [place] [address]- 1859 Jun, [facility] [place] [facility] [address] [id number] [place] [address]- 3451 Jun, [facility] [place] [facility] [address] [id number] [place] [address]- 7584 06 Jun, 2012 [facility] [place] [facility] [address] [id number], [place] [address]- 3489 Jun, [facility] [place] [facility] [address] [id number] [place] [address]- 9048 Apr, [facility] [place] [facility] [address] [id number] [place]16 Mar, [facility] [place] [facility] [address] [id number] [place] [address]- 6508 Mar, [facility] [place] [facility] [address] [id number] [place] [address]- 4073 Feb, [facility] [place] [facility] [address] [id number] [place] [address]- 1215 Feb, [facility] [place] [facility] [address] [id number] [place] [address]- 6415 Feb, [facility] [place] [facility] [address] [id number] [place] [address]- 1419 Feb, [facility] [place] [facility] [address] [id number] [place] [address]- 7647 Feb, [facility] [place] [facility] [address] [id number] [address]- 2581 Feb, [facility] [place] [facility] [address] [id number] [place] [address]- 2176 Feb, [facility] [place] [facility] [address] [id number], [place] [address]- 0906 Feb, [facility] [place] [facility] [address] [id number], [place] [address]- 2820 Jan, [facility] [place] [facility] [address] [id number], [place] [address]- 2064 Jan, [facility] [place] [facility] [address] [id number] [place] [address]- 1292 Jan, [facility] [place] [facility] [address] [id number] [place] [address]- 3341 Dec, [facility] [place] [facility] [address] [id number] [place] [address]- 3730 24 Dec, 2011 [facility] [address] [id number] [place] [address]- 5632 24 Dec, 2011 [facility] [place] [facility] [address] [id number] [place] [address]- 2566 18 Dec, 2011 [facility] [address] [id number] [place] [address]- 2956 18 Dec, 2011 [facility] [address] [id number] [place] [address]- 8224 17 Dec, 2011 [facility] [address] [id number] [place] [address]- 6815 Nov, [facility] [address] [id number] [place] [address]- 1260 Oct, [facility] [address] [id number] [place] [address]- 1000 Oct, [facility] [address] [id number] [place] [address]- 3574 Oct, [facility] [address] [id number] [place] [address]- 6068 Sep, [facility] [address] [id number] [place] [address]- 2829 August, [facility] [place] [facility] [address] [id number] [place] [address]- 8416 August, [facility] [address] [id number] [place] [address]- 4614 Jul, [facility] [place] [facility] [address] [id number] [place] [address]- 0860 Jul, [facility] [address] [id number] [place] [address]- 2186 Jul, [facility] [place] [facility] [address] [id number] [place] [address]- 3647 Jul, [facility] [address] [address]- 0920 Jun, [facility] [address] [address]- 7306 Jun, [facility] [address] [address]- 7700 Jun, [facility] [address] [address]- 6344 Jun, [facility] [address] [address]14 Jun, [facility] [address] [address]- 5620 Jun, [facility] [address], [place] [address]- 2172 Jun, [facility] [address], [place] [address]- 2589 Jun, [facility] [address], [place] [address]- 7095 May, [facility] [address] [address]- 9612 Apr, [facility] [id number] [address]- 3491 Feb, IMMUNIZATIONS No Known Immunizations SOCIAL HISTORY Never Assessed [facility]AS[facility] VISIT [facility] VITAL SIGNS Height 70 in 2017-10-11 Weight 135 lbs 2017-10-11 Temperature 98.5 degrees Fahrenheit 2017-10-11 Heart Rate 100 bpm 2017-10-11 Respiratory Rate 20 2017-10-11 BMI 19.37 kg/m2 2017-10-11 Blood pressure systolic 106 mmHg 2017-10-11 Blood pressure diastolic 76 mmHg 2017-10-11 MEDICATIONS Medication Instructions Dosage Frequency Start Date End Date Duration Status Viagra 100 mg Orally Once a day 1 tablet as needed 24h Sep, Active Keppra 500 mg Orally Twice a day 1 tablet 12h Sep, 30 day(s) Active Viagra 100 MG TAKE ONE TABLET BY MOUTH ONCE A DAY NEEDED 10 Active Topamax 200 MG Orally Twice a day 1 Tablet by Oral route 2 daily 12h Apr 90 Not-Taking Topiramate 200 MG TAKE ONE TABLET BY MOUTH TWICE DAILY 90 Active Omeprazole 20 mg Orally Once a day TAKE ONE CAPSULE BY MOUTH ONCE DAILY 24h 90 days Active Terbinafine HCl 1 % Externally Twice a day 1 application to affected area 12h Sep, Active Prilosec 20 mg Orally Once a day 1 capsule 24h Not-Taking Naproxen 500 mg Orally every 12 hrs [...]
--- OUTSIDE RECORDS SUMMARY | 2018-06-26 17:11 | XMS REPORT ---
Author Author YOLETTE DUNLAP Organization [facility] Address [address] [place] [address] Care Team Providers Care Lombardi Developer Name Role Phone YOLETTE DUNLAP Unavailable PROBLEMS Type Condition ICD9-CM Code TQP55-MV Code Onset Dates Condition Status SNOMED Code Problem Other chronic pain G89.29 Active 49709954 Problem Other chronic pain G89.29 Active 79861220 Problem Seizures R56.9 Active 70589829 Problem Lumbago with sciatica, right side M54.41 Active 259012804 Problem Polysubstance (including opioids) dependence, daily use F19.20 Active 892903934 Problem Neuropathy G62.9 Active 340806031 Problem Cigarette nicotine dependence without complication F17.210 Active 52826902 Problem Gastroenteritis K52.9 Active 88224793 Problem Anxiety F41.9 Active 71419295 Problem Simple chronic bronchitis J41.0 Active [id number] ALLERGIES No Information ENCOUNTERS Encounter Location Date Diagnosis [facility] [address] [address] Dec, [facility] [address] [address]- [address] Nov, Neuropathy G62.9 ; Seizures R56.9 and Polysubstance ( including opioids) dependence, daily use F19.20 [facility] [id number] [place] [address] 25106- 9680 Oct, [facility] [address] [address]- [address] Oct, Seizures R56.9 [facility] [address] [address]- 9[address] Oct, Seizures R56.9 and Neuropathy G62.9 [facility] [address] [address]- [address] 18 Sep, 2017 Seizures R56.9 ; Neuropathy G62.9 and Tinea pedis of both feet B35.3 [facility] [address] 47180- 8817 15 Sep, 2017 [facility] [address] 277[address]- 7946 11 Sep, 2017 Seizures R56.9 [facility] [address] [address]24- 5872 August, [facility] [address] 23700- 1628 Jun, [facility] [address] 6[address]- 0896 18 Apr, 2017 Lumbar neuritis M54.16 [facility] [address] [address]43- 2906 16 Apr, 2017 [facility] [address] 41535- 7058 Apr, Lumbar neuritis M54.16 [facility] [address] 20907- 3796 Mar, Lumbar neuritis M54.16 [facility] [address] 41572- 7889 Feb, Lumbar neuritis M54.16 [facility] [address] 99[address] 2545 Feb, Anxiety F41.9 and Seizures R56.9 [facility] [address] 70[address]- 8326 14 Feb, 2017 [facility] [id number] [place] [address] 72975- 5443 23 Jan, 2017 Lumbar neuritis M54.16 [facility] [address] 71945- 1720 Jan, Seizures R56.9 [facility] [id number] [place] [address] 47503- 8829 Jan, [facility] [id number] [place] [address] 27597- 1097 Dec, Lumbar neuritis M54.16 [facility] [id number] [place] [address] 50654- 5105 Dec, [facility] [id number] [place] [address] 81477- 7211 Nov, Lumbar neuritis M54.16 [facility] [id number] [place] [address] 80916- 2399 Nov, [facility] [id number] [place] [address] 00118- 1110 Nov, [facility] [address] 95866- 3220 Nov, Lumbar neuritis M54.16 [facility] [id number] [place] [address] 61664- 0059 Oct, Lumbar neuritis M54.16 [facility] [id number] [place] [address] 88365- 0751 Sep, Lumbago with sciatica, right side M54.41 and Seizures R56.9 [facility] [id number] [place] [address] 07027- 2021 Sep, Lumbar neuritis M54.16 [facility] [id number] [place] [address] 78080- 6124 August, Lumbar neuritis M54.16 and Anxiety F41.9 [facility] [id number] [place] [address] 91073- 0409 August, Simple chronic bronchitis J41.0 ; Hemoptysis R04.2 and Cigarette nicotine dependence without complication F17.210 [facility] [id number] [place] [address]- 8472 Jul, Lumbago with sciatica, right side M54.41 [place] [address] 86133- 9837 Jul, Lumbago with sciatica, right side M54.41 [place] [id number] [place] [address] 09529- 6530 Jun, Lumbago with sciatica, right side M54.41 [place] [id number] [place] [address] 53302- 9797 Jun, Lumbago with sciatica, right side M54.41 [place] [address] 69867- 2052 Jun, Lumbago with sciatica, right side M54.41 [facility] [id number] [place] [address] 57144 -5203 Jun, Gastroenteritis K52.9 [place] [id number] [place] [address] 86837- 8041 May, Seizures R56.9 ; Tobacco use Z72.0 ; Tobacco abuse counseling Z71.6 ; Tooth abscess K04.7 ; Pain in right leg M79.604 ; Pain of left leg M79.605 ; Other chronic pain G89.29 and Neuropathy G62.9 [place] [id number] [place] [address] 61503- 2544 May, Lumbago with sciatica, right side M54.41 [place] [id number] [place] [address] 64590- 9349 Apr, Lumbago with sciatica, right side M54.41 [place] [id number] [place] [address] 29153- 1801 Mar, Lumbago with sciatica, right side M54.41 [place] [id number] [place] [address] 10060- 8035 Mar, [facility] [id number] [address]- 2037 Mar, Lumbago with sciatica, right side M54.41 [facility] [address] [id number] [address] Feb, Lumbago with sciatica, right side M54.41 and Other chronic pain G89.29 [facility] [id number] [place] [address] 44816- 5323 Feb, [facility] [id number] [place] [address] 36067- 9983 Nov, Dental caries K02.9 [facility] [address] [address]- 7721 Oct, Dental examination Z01.20 [facility] [id number] [place] [address] 12486- 4925 Jul, Dental examination Z01.20 [facility] [address] [place] [address] 56433- 6850 Jul, Dental examination Z01.20 and Dental caries K02.9 [facility] [address] [address]- 0492 Jun, Dental examination Z01.20 [facility] [address] [address]- 9654 14 Jul, 2014 [facility] [address] [address]- 6216 Jul, [facility] [address] [address]- 7833 Apr, [facility] [id number] [address]- 5538 Apr, [facility] [address] [address]- 8531 Mar, [facility] [place] [facility] [address] [id number] [place] [address]- 3481 Mar, [facility] [place] [facility] [address] [id number] [place] [address]- 6739 Nov, [facility] [place] [facility] [address] [id number] [place] [address]- 0527 Nov, [facility] [place] [facility] [address] [id number] [place] [address]- 6168 Nov, [facility] [place] [facility] [address] [id number] [place] [address]- 1580 Nov, [facility] [place] [facility] [address] [id number] [place] [address]- 4811 Oct, [facility] [place] [facility] [address] [id number] [place] [address]- 8876 Oct, [facility] [place] [facility] [address] [id number] [place] [address]- 7137 Sep, [facility] [place] [facility] [address] [id number] [place] [address]- 2876 Sep, [facility] [place] [facility] [address] [id number] [place] [address]- 1274 August, [facility] [place] [facility] [address] [id number] [place] [address]- 0650 August, [facility] [place] [facility] [address] [id number] [place] [address]- 9626 Jul, [facility] [place] [facility] [address] [id number] [place] [address]- 0691 Jul, [facility] [place] [facility] [address] [id number] [place] [address]- 9628 Jul, [facility] [place] [facility] [address] [id number] [place] [address]- 4579 Jul, [facility] [place] [facility] [address] [id number] [place] [address]- 3207 Jul, [facility] [place] [facility] [address] [id number] [place] [address]- 6882 Jul, [facility] [place] [facility] [address] [id number] [place] [address]- 1455 Jul, [facility] [place] [facility] [address] [id number] [place] [address]- 1650 Jul, [facility] [place] [facility] [address] [id number] [place] [address]- 1818 Jul, [facility] [place] [facility] [address] [id number] [place] [address]- 2322 Jul, [facility] [place] [facility] [address] [id number] [place] [address]- 5048 Jun, [facility] [place] [facility] [address] [facility] [id number] [place] [address]- 0326 Jun, [facility] [place] [facility] [address] [id number] [place] [address]- 9687 Jun, [facility] [place] [facility] [address] [id number] [place] [address]- 2605 Jun, [facility] [place] [facility] [address] [facility] [id number] [place] [address]- 4749 Jun, [facility] [place] [facility] [address] [id number] [place] [address]- 3422 Jun, [facility] [place] [facility] [address] [id number] [place] [address]- 1762 May, [facility] [place] [facility] [address] [id number] [place] [address]- 4599 May, [facility] [place] [facility] [address] [id number] [place] [address]- 4147 May, [facility] [place] [facility] [address] [facility] [id number] [place] [address]- 3124 May, [facility] [place] [facility] [address] [id number] [place] [address]- 2447 Apr, [facility] [place] [facility] [address] [id number] [place] [address]- 6607 Apr, [facility] [place] [facility] [address] [id number] [place] [address]- 9291 Apr, [facility] [place] [facility] [address] [id number] [place] [address]- 3966 Apr, [facility] [place] [facility] [address] [id number] [place] [address]- 9516 Apr, [facility] [place] [facility] [address] [id number] [place] [address]- 7401 Apr, [facility] [place] [facility] [address] [id number] [place] [address]- 2131 Feb, [facility] [place] [facility] [address] [id number] [place] [address]- 4337 Feb, [facility] [place] [facility] [address] [id number] [place] [address]- 7993 Feb, [facility] [place] [facility] [address] [id number] [place] [address]- 3646 Feb, [facility] [place] [facility] [address] [id number] [place] [address]- 2986 Feb, [facility] [place] [facility] [address] [id number] [place] [address]- 8444 Feb, [facility] [place] [facility] [address] [id number] [place] [address]- 3757 Jan, [facility] [place] [facility] [address] [id number] [place] [address]- 6820 Jan, [facility] [place] [facility] [address] [id number] [place] [address]- 2325 Jan, [facility] [place] [facility] [address] [id number] [place] [address]- 8377 Jan, [facility] [address] [id number] [place] [address]- 9058 Jan, [facility] [place] [facility] [address] [id number] [place] [address]- 6116 Nov, [facility] [place] [facility] [address] [id number] [place] [address]- 1241 Oct, [facility] [place] [facility] [address] [id number] [place] [address]- 0273 Sep, [facility] [place] [facility] [address] [id number] [place] [address]- 3060 Sep, [facility] [place] [facility] [address] [id number] [place] [address]- 6398 August, [facility] [place] [facility] [address] [id number] [place] [address]- 8083 Jul, [facility] [place] [facility] [address] [id number] [place] [address]- 8093 Jul, [facility] [place] [facility] [address] [id number] [place] [address]- 4403 Jun, [facility] [place] [facility] [address] [id number] [place] [address]- 8885 Jun, [facility] [place] [facility] [address] [id number] [address]- 0713 Jun, [facility] [place] [facility] [address] [id number] [address]- 2430 Jun, [facility] [place] [facility] [address] [id number] [place] [address] 2545 Jun, [facility] [place] [facility] [address] [id number] [place] [address]- 9636 05 Jun, 2012 [facility] [place] [facility] [address] [id number] [place] [address]- 2546 Apr, [facility] [place] [facility] [address] [id number] [place] 4857 Mar, [facility] [place] [facility] [address] [id number] [place] 5161 Mar, [facility] [place] [facility] [address] [id number] [place] [address]- 5966 Feb, [facility] [place] [facility] [address] [id number] [place] [address]- 7746 Feb, [facility] [place] [facility] [address] [id number] [place] [address]- 5164 Feb, [facility] [place] [facility] [address] [id number] [place] [address]- 4069 Feb, [facility] [place] [facility] [address] [id number] [place] [address]- 8691 Feb, [facility] [place] [facility] [address] [facility] [id number] [place] [address]- 9980 Feb, [facility] [place] [facility] [address] [id number] [place] [address]- 8687 Feb, [facility] [place] [facility] [address] [facility] [id number] [place] [address]- 0469 Feb, [facility] [place] [facility] [address] [facility] [id number] [place] [address]- 1731 Jan, [facility] [place] [facility] [address] [id number] [place] [address]- 0017 Jan, [facility] [place] [facility] [address] [facility] [id number] [place] 6889 Jan, [facility] [place] [facility] [address] [id number] [place] [address]- 3517 Dec, [facility] [place] [facility] [address] [facility] [id number] [place] [address]- 0008 Dec, [facility] [place] [facility] [address] [id number] [place] 6231 Dec, [facility] [place] [facility] [address] [id number] [place] [address]- 9907 Dec, [facility] [place] [facility] [address] [id number] [place] [address]- 0209 Dec, [facility] [address] [id number] [place] [address]- 8780 Dec, [facility] [place] [facility] [address] [id number] [place] [address]- 4787 Nov, [facility] [address] [id number] [place] [address]- 0823 Oct, [facility] [address] [id number] [place] [address]- 1930 Oct, [facility] [address] [id number] [place] [address]- 1335 Oct, [facility] [address] [id number] [place] [address]- 0730 Sep, [facility] [address] [id number] [place] [address]- 9974 August, [facility] [address] [id number] [place] [address]- 4607 August, [facility] [address] [id number] [place] [address]- 9102 Jul, [facility] [place] [facility] [address] [id number] [place] [address]- 7719 Jul, [facility] [place] [facility] [address] [id number] [place] [address]- 6829 Jul, [facility] [place] [facility] [address] [id number] [place] [address]- 3336 Jul, [facility] [place] [facility] [address] [id number] [place] [address]- 8593 Jun, [facility] [place] [facility] [address] [id number] [address]- 3156 Jun, [facility] [id number] [address]- 7426 Jun, [facility] [address] [address]- 8946 Jun, [facility] [address] [address]- 2546 Jun, [facility] [address] [address]- 2306 Jun, [facility] [address] [address]- 0476 Jun, [facility] [address] [address] 2546 Jun, [facility] [address] [address]- 2746 May, [facility] [address] [address]- 5966 Apr, [facility] [address] [address]- 9358 Feb, IMMUNIZATIONS No Known Immunizations SOCIAL HISTORY Never Assessed REASON FOR VISIT med refill PLAN OF CARE VITAL SIGNS MEDICATIONS Medication Instructions Dosage Frequency Start Date End Date Duration Status Lamictal 200 MG Orally 2 times a day 1 tablet 12h Jun, 7 Active RESULTS No Results PROCEDURES No Known [...]
--- OUTSIDE RECORDS SUMMARY | 2018-06-26 17:11 | XMS REPORT ---
Author Author YOLETTE DUNLAP Organization [facility] Address [address] [place] [address] Care Team Providers Care Supervisor [employer] Name Role Phone YOLETTE DUNLAP Unavailable PROBLEMS Type Condition ICD9-CM Code QVB42-SS Code Onset Dates Condition Status SNOMED Code Problem Other chronic pain G89.29 Active 27736494 Problem Other chronic pain G89.29 Active 74766104 Problem Seizures R56.9 Active 30729591 Problem Lumbago with sciatica, right side M54.41 Active 772206799 Problem Polysubstance (including opioids) dependence, daily use F19.20 Active 503350281 Problem Neuropathy G62.9 Active 602686139 Problem Cigarette nicotine dependence without complication F17.210 Active 22998736 Problem Gastroenteritis K52.9 Active 16444812 Problem Anxiety F41.9 Active 64102842 Problem Simple chronic bronchitis J41.0 Active 52252070 ALLERGIES No Information ENCOUNTERS Encounter Location Date Diagnosis [facility] [address] [address] Dec, [facility] [address] [address] Nov, Neuropathy G62.9 ; Seizures R56.9 and Polysubstance ( including opioids) dependence, daily use F19.20 [facility] [id number] [place] [address]35- 6253 Oct, [facility] [address] [address]- [address] Oct, Seizures R56.9 [facility] [address] [address]- 16[address] Oct, Seizures R56.9 and Neuropathy G62.9 [facility] [address] [address]- [address] 18 Sep, 2017 Seizures R56.9 ; Neuropathy G62.9 and Tinea pedis of both feet B35.3 [facility] [address] [address]- [address] 15 Sep, 2017 [facility] [address] [address]- [address]86 11 Sep, 2017 Seizures R56.9 [facility] [address] [address]- 6[address] August, [facility] [address] 0[address]- 9[address] Jun, [facility] [address] [address]- 4557 18 Apr, 2017 Lumbar neuritis M54.16 [facility] [address] [address]- 1168 16 Apr, 2017 [facility] [address] 72758- 8011 Apr, Lumbar neuritis M54.16 [facility] [address] 14543- 0207 Mar, Lumbar neuritis M54.16 [facility] [address] [address]- 5724 Feb, Lumbar neuritis M54.16 [facility] [address] [address] 2545 Feb, Anxiety F41.9 and Seizures R56.9 [facility] [address] 56944- 0676 14 Feb, 2017 [facility] [id number] [place] [address] 44517- 5529 23 Jan, 2017 Lumbar neuritis M54.16 [facility] [address] [address]- 3259 Jan, Seizures R56.9 [facility] [id number] [place] [address] 18921- 2155 Jan, [facility] [id number] [place] [address] 99737- 8323 Dec, Lumbar neuritis M54.16 [facility] [id number] [place] [address] 71662- 8224 Dec, [facility] [id number] [place] [address] 47512- 1087 Nov, Lumbar neuritis M54.16 [facility] [id number] [place] [address] 35360- 7615 Nov, [facility] [id number] [place] [address] 33060- 0932 Nov, [facility] [address] 25177- 6902 Nov, Lumbar neuritis M54.16 [facility] [id number] [place] [address] 72100- 2719 Oct, Lumbar neuritis M54.16 [facility] [id number] [place] [address] 84263- 0317 Sep, Lumbago with sciatica, right side M54.41 and Seizures R56.9 [facility] [id number] [place] [address] 88282- 3311 Sep, Lumbar neuritis M54.16 [facility] [id number] [place] [address] 18548- 5274 August, Lumbar neuritis M54.16 and Anxiety F41.9 [facility] [id number] [place] [address] 63329- 2398 August, Simple chronic bronchitis J41.0 ; Hemoptysis R04.2 and Cigarette nicotine dependence without complication F17.210 [facility] [id number] [place] [address]- 97[address] Jul, Lumbago with sciatica, right side M54.41 [place] [address] [address]- 4185 Jul, Lumbago with sciatica, right side M54.41 [place] [id number] [place] [address] 96375- 6951 Jun, Lumbago with sciatica, right side M54.41 [place] [id number] [place] [address] 54572- 4000 Jun, Lumbago with sciatica, right side M54.41 [place] [address] 96658- 1443 Jun, Lumbago with sciatica, right side M54.41 [facility] [id number] [place] [address] 94486 -2282 Jun, Gastroenteritis K52.9 [place] [id number] [place] [address] 76800- 2729 May, Seizures R56.9 ; Tobacco use Z72.0 ; Tobacco abuse counseling Z71.6 ; Tooth abscess K04.7 ; Pain in right leg M79.604 ; Pain of left leg M79.605 ; Other chronic pain G89.29 and Neuropathy G62.9 [place] [id number] [place] [address] 17411- 1830 May, Lumbago with sciatica, right side M54.41 [place] [id number] [place] [address] 37086- 2669 Apr, Lumbago with sciatica, right side M54.41 [place] [id number] [place] [address] 45477- 0222 Mar, Lumbago with sciatica, right side M54.41 [place] [id number] [place] [address] 74234- 2699 Mar, [facility] [address] [id number] [address] 0[address] Mar, Lumbago with sciatica, right side M54.41 [facility] [address] [id number] [address]- 1604 Feb, Lumbago with sciatica, right side M54.41 and Other chronic pain G89.29 [facility] [id number] [place] [address] 30363- 7287 Feb, [facility] [id number] [place] [address] 90479- 4145 Nov, Dental caries K02.9 [facility] [address] [address]- 6392 Oct, Dental examination Z01.20 [facility] [id number] [place] [address] 57239- 7797 Jul, Dental examination Z01.20 [facility] [id number] [place] [address] 23390- 7902 Jul, Dental examination Z01.20 and Dental caries K02.9 [facility] [address] [address]- 3470 Jun, Dental examination Z01.20 [facility] [address] [address]- 2126 14 Jul, 2014 [facility] [address] [address]- 2046 Jul, [facility] [address] [address]- 0426 Apr, [facility] [id number] [address]- 8015 Apr, [facility] [id number] [address]- 2460 Mar, [facility] [place] [facility] [address] [id number] [place] [address]- 6957 Mar, [facility] [place] [facility] [address] [id number] [place] [address]- 8924 Nov, [facility] [place] [facility] [address] [id number] [place] [address]- 0729 Nov, [facility] [place] [facility] [address] [id number] [place] [address]- 2455 Nov, [facility] [place] [facility] [address] [id number] [place] [address]- 3717 Nov, [facility] [place] [facility] [address] [id number] [place] [address]- 4965 Oct, [facility] [place] [facility] [address] [id number] [place] [address]- 2594 Oct, [facility] [place] [facility] [address] [id number] [place] [address]- 6139 Sep, [facility] [place] [facility] [address] [id number] [place] [address]- 4749 Sep, [facility] [place] [facility] [address] [id number] [place] [address]- 0668 August, [facility] [place] [facility] [address] [id number] [place] [address]- 2965 August, [facility] [place] [facility] [address] [id number] [place] [address]- 9898 Jul, [facility] [place] [facility] [address] [id number] [place] [address]- 9001 Jul, [facility] [place] [facility] [address] [id number] [place] [address]- 2693 Jul, [facility] [place] [facility] [address] [id number] [place] [address]- 6964 Jul, [facility] [place] [facility] [address] [id number] [place] [address]- 6205 Jul, [facility] [place] [facility] [address] [id number] [place] [address]- 6401 Jul, [facility] [place] [facility] [address] [id number] [place] [address]- 1969 Jul, [facility] [place] [facility] [address] [id number] [place] [address]- 8910 Jul, [facility] [place] [facility] [address] [id number] [place] [address]- 4718 Jul, [facility] [place] [facility] [address] [id number] [place] [address]- 5465 Jul, [facility] [place] [facility] [address] [id number] [place] [address]- 2225 Jun, [facility] [place] [facility] [address] [facility] [id number] [place] [address]- 7561 Jun, [facility] [place] [facility] [address] [id number] [place] [address]- 1842 Jun, [facility] [place] [facility] [address] [id number] [place] [address]- 8413 Jun, [facility] [place] [facility] [address] [facility] [id number] [place] [address]- 0760 Jun, [facility] [place] [facility] [address] [id number] [place] [address]- 2169 Jun, [facility] [place] [facility] [address] [id number] [place] [address]- 2436 May, [facility] [place] [facility] [address] [id number] [place] [address]- 0330 May, [facility] [place] [facility] [address] [id number] [place] [address]- 8504 May, [facility] [place] [facility] [address] [facility] [id number] [place] [address]- 4893 May, [facility] [place] [facility] [address] [id number] [place] [address]- 6359 Apr, [facility] [place] [facility] [address] [id number] [place] [address]- 6472 Apr, [facility] [place] [facility] [address] [id number] [place] [address]- 3067 Apr, [facility] [place] [facility] [address] [id number] [place] [address]- 3961 Apr, [facility] [place] [facility] [address] [id number] [place] [address]- 7063 Apr, [facility] [place] [facility] [address] [id number] [place] [address]- 9965 Apr, [facility] [place] [facility] [address] [id number] [place] [address]- 3868 Feb, [facility] [place] [facility] [address] [id number] [place] [address]- 1839 Feb, [facility] [place] [facility] [address] [id number] [place] [address]- 4301 Feb, [facility] [place] [facility] [address] [id number] [place] [address]- 1813 Feb, [facility] [place] [facility] [address] [id number] [place] [address]- 6816 Feb, [facility] [place] [facility] [address] [id number] [place] [address]- 3007 Feb, [facility] [place] [facility] [address] [id number] [place] [address]- 5824 Jan, [facility] [place] [facility] [address] [id number] [place] [address]- 8533 Jan, [facility] [place] [facility] [address] [id number] [place] [address]- 4848 Jan, [facility] [place] [facility] [address] [id number] [place] [address]- 4918 Jan, [facility] [address] [id number] [place] [address]- 3623 Jan, [facility] [place] [facility] [address] [id number] [place] [address]- 1976 Nov, [facility] [place] [facility] [address] [id number] [place] [address]- 0040 Oct, [facility] [place] [facility] [address] [id number] [place] [address]- 6905 Sep, [facility] [place] [facility] [address] [id number] [place] [address]- 5590 Sep, [facility] [place] [facility] [address] [id number] [place] [address]- 2534 August, [facility] [place] [facility] [address] [id number] [place] [address]- 3226 Jul, [facility] [place] [facility] [address] [id number] [place] [address]- 1015 Jul, [facility] [place] [facility] [address] [id number] [place] [address]- 4428 Jun, [facility] [place] [facility] [address] [id number] [place] [address]- 3384 Jun, [facility] [place] [facility] [address] [id number], [place] [address]- 4595 Jun, [facility] [place] [facility] [address] [id number], [place] [address]- 7607 Jun, [facility] [place] [facility] [address] [id number] [place] [address] 2542 Jun, [facility] [place] [facility] [address] [id number] [place] [address]- 6426 05 Jun, 2012 [facility] [place] [facility] [address] [id number] [place] [address]- 2546 Apr, [facility] [place] [facility] [address] [id number] [place] [address] Mar, [facility] [place] [facility] [address] [id number] [place] [address] Mar, [facility] [place] [facility] [address] [id number] [place] [address]- 7706 Feb, [facility] [place] [facility] [address] [id number] [place] [address]- 3546 Feb, [facility] [place] [facility] [address] [id number] [place] [address]- 2910 Feb, [facility] [place] [facility] [address] [id number] [place] [address]- 4081 Feb, [facility] [place] [facility] [address] [id number] [place] [address]- 8317 Feb, [facility] [place] [facility] [address] [facility] [id number] [place] [address]- 6115 Feb, [facility] [place] [facility] [address] [id number] [place] [address]- 4700 Feb, [facility] [place] [facility] [address] [facility] [id number] [place] [address]- 5837 Feb, [facility] [place] [facility] [address] [facility] [id number] [place] [address]- 8224 Jan, [facility] [place] [facility] [address] [id number] [place] [address]- 7895 Jan, [facility] [place] [facility] [address] [facility] [id number] [place] 4603 Jan, [facility] [place] [facility] [address] [id number] [place] [address]- 6343 Dec, [facility] [place] [facility] [address] [facility] [id number] [place] [address]- 8987 Dec, [facility] [place] [facility] [address] [id number] [place] 7721 Dec, [facility] [place] [facility] [address] [id number] [place] [address]- 8546 Dec, [facility] [place] [facility] [address] [id number] [place] [address]- 9506 Dec, [facility] [address] [id number] [place] [address]- 5669 Dec, [facility] [place] [facility] [address] [id number] [place] [address]- 9961 Nov, [facility] [address] [id number] [place] [address]- 3288 Oct, [facility] [address] [id number] [place] [address]- 1970 Oct, [facility] [address] [id number] [place] [address]- 0547 Oct, [facility] [address] [id number] [place] [address]- 0558 Sep, [facility] [address] [id number] [place] [address]- 4255 August, [facility] [address] [id number] [place] [address]- 8172 August, [facility] [address] [id number] [place] [address]- 7344 Jul, [facility] [place] [facility] [address] [id number] [place] [address]- 2453 Jul, [facility] [place] [facility] [address] [id number] [place] [address]- 7161 Jul, [facility] [place] [facility] [address] [id number] [place] [address]- 5928 Jul, [facility] [place] [facility] [address] [id number] [place] [address]- 1273 Jun, [facility] [place] [facility] [address] [id number], [place] [address]- 2546 Jun, [facility] [id number], [place] [address]- 1276 Jun, [facility] [address], [place] [address]- 2546 Jun, [facility] [id number], [place] [address]- 2546 Jun, [facility] [id number], [place] [address]- 2546 Jun, [facility] [id number], [place] [address]- 2546 Jun, [facility] [address], [place] [address]- 2546 Jun, [facility] [id number], [place] [address]- 2546 May, [facility] [address], [place] [address]- 1296 Apr, [facility] [address], [place] [address]- 7217 Feb, IMMUNIZATIONS No Known Immunizations SOCIAL HISTORY Never Assessed REASON FOR VISIT Refill request PLAN OF CARE VITAL SIGNS MEDICATIONS Medication Instructions Dosage Frequency Start Date End Date Duration Status Omeprazole 20 mg Orally Once a day TAKE ONE CAPSULE BY MOUTH ONCE DAILY 24h 90 days Active RESULTS No Results PROCEDURES No Known [...]
--- OUTSIDE RECORDS SUMMARY | 2018-06-26 17:12 | XMS REPORT ---
Author Author YOLETTE DUNLAP Organization [facility] Address [address] [place] [address] Care Team Providers Care Fine Grader Name Role Phone YOLETTE DUNLAP Unavailable PROBLEMS Type Condition ICD9-CM Code DNJ13-CR Code Onset Dates Condition Status SNOMED Code Problem Lumbago with sciatica, right side M54.41 Active 530509209 Problem Seizures R56.9 Active 35693657 Problem Other chronic pain G89.29 Active 42460966 Problem Neuropathy G62.9 Active 343866372 Problem Anxiety F41.9 Active 30607849 Problem Gastroenteritis K52.9 Active 00491300 Problem Other chronic pain G89.29 Active 62692504 Problem Simple chronic bronchitis J41.0 Active 45910229 Problem Cigarette nicotine dependence without complication F17.210 Active 86686859 ALLERGIES No Information ENCOUNTERS Encounter Location Date Diagnosis [facility] [id number] [place] [address] 49033- 9458 Oct, [place] [id number] [place] [address] 83652- 0360 Oct, Seizures R56.9 and Neuropathy G62.9 [facility] [id number] [place] [address] 85589- 6398 Sep, Seizures R56.9 ; Neuropathy G62.9 and Tinea pedis of both feet B35.3 [facility] [id number] [place] [address] 99475- 1311 Sep, [facility] [id number] [place] [address] 31848- 1524 Sep, Seizures R56.9 [facility] [id number] [place] [address] 84546- 8863 August, [facility] [id number] [place] [address] 45905- 1056 13 Jun, 2017 [facility] [id number] [place] [address] 50683- 5286 Apr, Lumbar neuritis M54.16 [facility] [id number] [place] [address] 36317 2546 16 Apr, 2017 [facility] [address] [address]39 2546 Apr, Lumbar neuritis M54.16 [facility] [id number] [place] [address] 07869 2546 Mar, Lumbar neuritis M54.16 [facility] [id number] [place] [address] 85166- 0136 Feb, Lumbar neuritis M54.16 [facility] [id number] [place] [address] 24490- 6797 Feb, Anxiety F41.9 and Seizures R56.9 [facility] [id number] [place] [address] 18503- 0186 Feb, [facility] [id number] [place] [address] 53933- 7736 Jan, Lumbar neuritis M54.16 [facility] [id number] [place] [address] 31431 2546 Jan, Seizures R56.9 [facility] [id number] [place] [address] 78426 2546 Jan, [facility] [id number] [place] [address] 98169 2546 Dec, Lumbar neuritis M54.16 [facility] [id number] [place] [address] 40368 2546 Dec, [facility] [id number] [place] [address] 28389- 7256 Nov, Lumbar neuritis M54.16 [place] [id number] [place] [address] 96195- 8974 Nov, [place] [id number] [place] [address] 52056- 6491 Nov, [place] [id number] [place] [address] 02748- 9900 Nov, Lumbar neuritis M54.16 [place] [id number] [place] [address] 83186- 4476 Oct, Lumbar neuritis M54.16 [place] [id number] [place] [address] 25984- 3353 Sep, Lumbago with sciatica, right side M54.41 and Seizures R56.9 [place] [address] 05492- 0023 Sep, Lumbar neuritis M54.16 [place] [id number] [place] [address] 75542- 9677 August, Lumbar neuritis M54.16 and Anxiety F41.9 [place] [address] 38596- 8550 August, Simple chronic bronchitis J41.0 ; Hemoptysis R04.2 and Cigarette nicotine dependence without complication F17.210 [place] [id number] [place] [address] 39134- 4506 Jul, Lumbago with sciatica, right side M54.41 [place] [id number] [place] [address] 93223- 2570 Jul, Lumbago with sciatica, right side M54.41 [place] [id number] [place] [address] 94886- 1328 31 Jun, 2016 Lumbago with sciatica, right side M54.41 [place] [id number] [place] [address] 67384- 2797 Jun, Lumbago with sciatica, right side M54.41 [facility] [id number] [place] [address] 77380- 3534 Jun, Lumbago with sciatica, right side M54.41 [facility] [id number] [place] [address] 60032 -4088 Jun, Gastroenteritis K52.9 [facility] [address] 76814- 3611 May, Seizures R56.9 ; Tobacco use Z72.0 ; Tobacco abuse counseling Z71.6 ; Tooth abscess K04.7 ; Pain in right leg M79.604 ; Pain of left leg M79.605 ; Other chronic pain G89.29 and Neuropathy G62.9 [place] [id number] [place] [address] 77542- 6549 May, Lumbago with sciatica, right side M54.41 [place] [id number] [place] [address] 56128- 5082 Apr, Lumbago with sciatica, right side M54.41 [place] [id number] [place] [address] 68105- 4230 Mar, Lumbago with sciatica, right side M54.41 [place] [id number] [place] [address] 37489- 2494 Mar, [facility] [id number] [place] [address] 50596- 7852 Mar, Lumbago with sciatica, right side M54.41 [place] [address] 40386- 2723 Feb, Lumbago with sciatica, right side M54.41 and Other chronic pain G89.29 [place] [id number] [place] [address] 65586- 8944 Feb, [place] [address] [place] [id number] [address]- 8397 08 Nov, 2015 Dental caries K02.9 [facility] [address] [id number] [place] [address]- 2646 05 Oct, 2015 Dental examination Z01.20 [facility] [address] [id number] [place] [address]- 8486 26 Jul, 2015 Dental examination Z01.20 [facility] [address] [id number] [place] [address] 2541 Jul, Dental examination Z01.20 and Dental caries K02.9 [facility] [address] [id number] [place] [address]- 9074 Jun, Dental examination Z01.20 [facility] [address] [id number] [place] [address]- 1913 Jul, [facility] [address] [id number] [place] [address]- 1166 Jul, [facility] [address] [id number] [place] [address]- 4691 Apr, [facility] [address] [id number] [place] [address]- 7898 Apr, [facility] [address] [id number] [place] [address]- 2025 Mar, [facility] [address] [id number] [address]- 1447 Mar, [facility] [address] [id number] [place] [address]- 2568 Nov, [facility] [address] [id number] [place] [address]- 7855 Nov, [facility] [address] [id number] [place] [address]- 7730 Nov, [facility] [address] [id number] [address]- 6773 Nov, [facility] [place] [facility] [address] [id number] [place] [address]- 3234 Oct, [facility] [place] [facility] [address] [id number] [place] [address]- 3636 Oct, [facility] [place] [facility] [address] [id number] [place] [address]- 2471 Sep, [facility] [place] [facility] [address] [id number] [place] [address]- 9673 Sep, [facility] [place] [facility] [address] [id number] [place] [address]- 2449 August, [facility] [place] [facility] [address] [id number] [place] [address]- 0992 August, [facility] [place] [facility] [address] [id number] [place] [address]- 7376 Jul, [facility] [place] [facility] [address] [id number] [place] [address]- 3876 Jul, [facility] [place] [facility] [address] [id number] [place] [address]- 7327 Jul, [facility] [place] [facility] [address] [id number] [place] [address]- 0442 Jul, [facility] [place] [facility] [address] [id number] [place] [address]- 3530 Jul, [facility] [place] [facility] [address] [id number] [place] [address]- 4358 Jul, [facility] [place] [facility] [address] [id number] [place] [address]- 7565 Jul, [facility] [place] [facility] [address] [id number] [place] [address]- 2187 Jul, [facility] [place] [facility] [address] [id number] [place] [address]- 7922 Jul, [facility] [place] [facility] [address] [id number] [place] [address]- 4083 08 Jul, 2013 [facility] [place] [facility] [address] [id number] [place] [address]- 9158 Jun, [facility] [place] [facility] [address] [id number] [place] [address]- 5287 Jun, [facility] [place] [facility] [address] [id number] [place] [address]- 6278 Jun, [facility] [place] [facility] [address] [id number] [place] [address]- 9180 Jun, [facility] [place] [facility] [address] [id number] [place] [address]- 6213 Jun, [facility] [place] [facility] [address] [id number] [place] [address]- 3722 Jun, [facility] [place] [facility] [address] [id number] [place] [address]- 7756 May, [facility] [place] [facility] [address] [id number] [place] [address]- 2414 May, [facility] [place] [facility] [address] [id number] [place] [address]- 5831 May, [facility] [place] [facility] [address] [id number] [place] [address]- 5768 May, [facility] [place] [facility] [address] [id number] [place] [address]- 5762 Apr, [facility] [place] [facility] [address] [id number] [place] [address]- 2294 Apr, [facility] [place] [facility] [address] [id number] [place] [address]- 8719 Apr, [facility] [place] [facility] [address] [id number] [place] [address]- 3526 Apr, [facility] [place] [facility] [address] [id number] [place] [address]- 9707 Apr, [facility] [place] [facility] [address] [id number] [place] [address]- 7343 Apr, [facility] [place] [facility] [address] [id number] [place] [address]- 2647 Feb, [facility] [place] [facility] [address] [id number] [place] [address]- 2694 Feb, [facility] [place] [facility] [address] [id number] [place] [address]- 2145 Feb, [facility] [place] [facility] [address] [id number] [place] [address]- 7507 Feb, [facility] [place] [facility] [address] [id number] [place] [address]- 4742 Feb, [facility] [place] [facility] [address] [id number] [place] [address]- 0783 Feb, [facility] [place] [facility] [address] [id number] [place] [address]- 2602 Jan, [facility] [place] [facility] [address] [id number] [place] [address]- 2834 Jan, [facility] [place] [facility] [address] [id number] [place] [address]- 7823 Jan, [facility] [place] [facility] [address] [id number] [place] [address]- 4353 Jan, [facility] [place] [facility] [address] [id number] [address]- 9946 Jan, [facility] [place] [facility] [address] [id number] [place] [address]- 3516 Nov, [facility] [place] [facility] [address] [id number] [place] [address]- 2071 Oct, [facility] [place] [facility] [address] [id number] [place] [address]- 9850 Sep, [facility] [place] [facility] [address] [id number] [place] [address]- 7462 04 Sep, 2012 [facility] [address] [id number] [place] [address]- 1466 August, [facility] [place] [facility] [address] [id number] [place] [address]- 3633 Jul, [facility] [address] [id number] [place] [address]- 9766 Jul, [facility] [place] [facility] [address] [id number] [place] [address]- 0820 Jun, [facility] [address] [id number] [place] [address]- 8035 Jun, [facility] [place] [facility] [address] [id number] [place] [address]- 1470 Jun, [facility] [address] [id number] [place] [address]- 4339 Jun, [facility] [address] [id number] [place] [address]- 3325 Jun, [facility] [address] [id number] [place] [address]- 3879 05 Jun, 2012 [facility] [address] [facility] [id number] [place] [address]- 3807 Apr, [facility] [address] [id number] [place] [address]- 7051 Mar, [facility] [place] [facility] [address] [id number] [place] [address]- 3932 Mar, [facility] [place] [facility] [address] [id number] [place] [address]- 7264 Feb, [facility] [place] [facility] [address] [id number] [place] [address]- 1793 Feb, [facility] [place] [facility] [address] [facility] 3[facility] [id number] [place] [address]- 1911 Feb, [facility] [place] [facility] [address] [id number] [place] [address]- 2986 15 Feb, 2012 [facility] [place] [facility] [address] [id number] [place] [address]- 9484 Feb, [facility] [place] [facility] [address] [id number] [place] [address]- 0077 Feb, [facility] [place] [facility] [address] [id number] [place] [address]- 0477 Feb, [facility] [place] [facility] [address] [id number] [place] [address]- 8414 Feb, [facility] [place] [facility] [address] [id number] [place] [address]- 0450 Jan, [facility] [place] [facility] [address] [id number] [place] [address]- 5619 Jan, [facility] [place] [facility] [address] [id number] [place] [address]- 9972 Jan, [facility] [place] [facility] [address] [id number] [place] [address]- 6823 28 Dec, 2011 [facility] [place] [facility] [address] [id number] [place] [address]- 6584 24 Dec, 2011 [facility] [place] [facility] [address] [id number] [place] [address]- 8187 24 Dec, 2011 [facility] [place] [facility] [address] [id number] [place] [address]- 3056 18 Sep2011 [facility] [place] [facility] [address] [id number] [place] [address]- 1579 18 Sep2011 [facility] [place] [facility] [address] [id number] [place] [address]- 2689 17 Dec, 2011 [facility] [place] [facility] [address] [id number] [place] [address]- 2853 06 Nov, 2011 [facility] [place] [facility] [address] [id number] [place] [address]- 5800 Oct, [facility] [place] [facility] [address] [id number] [place] [address]- 9785 Oct, [facility] [place] [facility] [address] [id number] [place] [address]- 9676 Oct, [facility] [place] [facility] [address] [id number] [place] [address]- 8719 Sep, [facility] [place] [facility] [address] [id number] [place] [address]- 4320 August, [facility] [place] [facility] [address] [id number] [place] [address]- 4915 August, [facility] [place] [facility] [address] [id number] [place] [address]- 6113 Jul, [facility] [place] [facility] [address] [id number] [place] [address]- 5645 Jul, [facility] [place] [facility] [address] [id number] [place] [address]- 5980 Jul, [facility] [place] [facility] [address] [id number] [place] [address]- 0757 Jul, [facility] [place] [facility] [address] [id number] [place] [address]- 9166 Jun, [facility] [place] [facility] [address] [id number] [place] [address]- 6712 27 Jun, 2011 [facility] [place] [facility] [address] [id number] [place] [address]- 3259 Jun, [facility] [place] [facility] [address] [id number] [place] [address]- 3926 16 Jun, 2011 [facility] [place] [facility] [address] [id number] [place] [address]- 6880 16 Jun, 2011 [facility] [place] [facility] [address] [id number] [place] [address]- 1103 Jun, [facility] [place] [facility] [address] [facility] 3] [id number] [place] [address]- 2546 Jun, [facility] [address] [facility] 3] [id number], [place] [address]- 2546 Jun, [facility] [address] [facility]NOTE 3] [id number] [address]- 2546 May, [facility] [address] [facility]NOTE 3] [id number], [place] [address]- 2546 Apr, [facility] [address] [facility] 3] [id number], [place] [address] 2546 Feb, IMMUNIZATIONS No Known Immunizations SOCIAL HISTORY Never Assessed REASON FOR VISIT needs appt PLAN OF CARE VITAL SIGNS MEDICATIONS Unknown Medications RESULTS No Results PROCEDURES No Known procedures INSTRUCTIONS MEDICATIONS ADMINISTERED No Known Medications MEDICAL (GENERAL) HISTORY Type Description Date Medical History Fainting, Seizures, Epilepsy Medical History Hepatitis C Medical History Back Trouble Surgical History cyst removed 03/2015 Surgical History cyst removal 12/2015
--- OUTSIDE RECORDS SUMMARY | 2018-06-26 17:12 | XMS REPORT ---
Author Author YOLETTE DUNLAP [facility] Address [address] [place] [address] Care Team Providers Care Thermal Molder Name Role Phone GERMÁN YOLETTE Unavailable PROBLEMS Type Condition ICD9-CM Code BXT39-EA Code Onset Dates Condition Status SNOMED Code Problem Other chronic pain G89.29 Active 58015878 Problem Lumbago with sciatica, right side M54.41 Active 748330223 Problem Anxiety F41.9 Active 09191238 Problem Cigarette nicotine dependence without complication F17.210 Active 43548941 Problem Other chronic pain G89.29 Active 05722353 Problem Seizures R56.9 Active 17129474 Problem Simple chronic bronchitis J41.0 Active 30679284 Problem Gastroenteritis K52.9 Active 72632535 ALLERGIES Substance Reaction Event Type Date Status Tramadol HCl Pt states induces seizures Drug Allergy August, Active Penicillamine Unknown Drug Allergy August, Active Dilantin hives Drug Allergy August, Active BusPIRone HCl Pt states induces seizures Drug Allergy August, Active SOCIAL HISTORY Never Assessed PLAN OF CARE VITAL SIGNS Height 70 in 2016-09-03 Weight 145 lbs 2016-09-03 Temperature 98.6 degrees Fahrenheit 2016-09-03 Heart Rate 88 bpm 2016-09-03 Respiratory Rate 18 2016-09-03 BMI 20.80 kg/m2 2016-09-03 Blood pressure systolic 110 mmHg 2016-09-03 Blood pressure diastolic 70 mmHg 2016-09-03 MEDICATIONS Medication Instructions Dosage Frequency Start Date End Date Duration Status Oxycodone HCl 10 mg Orally every 6 hrs 1 tablet as needed 6h August, Active Prilosec 20 mg Orally Once a day 1 capsule 24h Active Xanax 1 MG Orally Twice a day 1 tablet 12h August, Active Lamictal 150 MG Orally 2 times a day 1 tablet 12h Jun, 30 days Active Topamax 100 MG Orally Twice a day 1 Tablet by Oral route 2 daily 12h Apr Active Viagra 100 MG Orally Once a day 1 tablet as needed 24h 10 Active Doxycycline Hyclate 100 mg Orally Twice a day 1 capsule 12h August, August, 07 days Active RESULTS No Results PROCEDURES No Known procedures IMMUNIZATIONS No Known Immunizations MEDICAL (GENERAL) HISTORY Type Description Date Medical History Fainting, Seizures, Epilepsy Medical History Hepatitis C Medical History Back Trouble Surgical History cyst removed 03/2015 Surgical History cyst removal 12/2015
--- OUTSIDE RECORDS SUMMARY | 2018-06-26 17:12 | XMS REPORT ---
Author Author YOLETTE DUNLAP Organization [facility] Address [address] [place] [address] Care Team Providers Care Team Physician Name Role Phone YOLETTE DUNLAP Unavailable PROBLEMS Type Condition ICD9-CM Code PTC40-AY Code Onset Dates Condition Status SNOMED Code Problem Lumbago with sciatica, right side M54.41 Active 486590630 Problem Seizures R56.9 Active 37779567 Problem Other chronic pain G89.29 Active 59807835 Problem Neuropathy G62.9 Active 216802285 Problem Anxiety F41.9 Active 27951083 Problem Gastroenteritis K52.9 Active 69321065 Problem Other chronic pain G89.29 Active 48378956 Problem Simple chronic bronchitis J41.0 Active 71397702 Problem Cigarette nicotine dependence without complication F17.210 Active 67180077 ALLERGIES No Information ENCOUNTERS Encounter Location Date Diagnosis [facility] [id number] [place] [address] 65894- 3670 Nov, [facility] [id number] [place] [address] 97752- 5259 Oct, [facility] [id number] [place] [address] 74721- 1055 Oct, Seizures R56.9 [facility] [id number] [place] [address] 77080- 5102 Oct, Seizures R56.9 and Neuropathy G62.9 [facility] [id number] [place] [address] 08398- 1678 Sep, Seizures R56.9 ; Neuropathy G62.9 and Tinea pedis of both feet B35.3 [facility] [id number] [place] [address] 91201- 4687 Sep, [facility] [id number] [place] [address] 19365- 6666 11 Sep, 2017 Seizures R56.9 [facility] [id number] [place] [address] 82329- 9076 08 Aug, 2017 [facility] [id number] [place] [address] 14356 2546 Jun, [facility] [id number] [place] [address] 45972- 7936 Apr, Lumbar neuritis M54.16 [facility] [id number] [place] [address] 60038- 9726 16 Apr, 2017 [facility] [id number] [place] [address] 70022- 5916 Apr, Lumbar neuritis M54.16 [facility] [id number] [place] [address] 51026- 8966 Mar, Lumbar neuritis M54.16 [facility] [id number] [place] [address] 36989 2540 Feb, Lumbar neuritis M54.16 [facility] [id number] [place] [address] 85323- 4306 Feb, Anxiety F41.9 and Seizures R56.9 [facility] [id number] [place] [address] 19249- 0696 Feb, [facility] [id number] [place] [address] 48518- 2646 Jan, Lumbar neuritis M54.16 [facility] [id number] [place] [address] 22306- 2026 Jan, Seizures R56.9 [facility] [id number] [place] [address] 080640- 9836 Jan, [facility] [id number] [place] [address] 66479- 4726 Dec, Lumbar neuritis M54.16 [facility] [id number] [place] [address] 31579- 6800 Dec, [facility] [address] 54805- 2877 Nov, Lumbar neuritis M54.16 [facility] [address] 54727- 3640 Nov, [facility] [address] 47123- 7011 Nov, [facility] [id number] [place] [address] 09055- 2228 Nov, Lumbar neuritis M54.16 [facility] [id number] [place] [address] 31573- 4906 Oct, Lumbar neuritis M54.16 [facility] [address] 65926- 4702 Sep, Lumbago with sciatica, right side M54.41 and Seizures R56.9 [facility] [address] 02450- 1741 Sep, Lumbar neuritis M54.16 [facility] [id number] [place] [address] 51586- 7018 August, Lumbar neuritis M54.16 and Anxiety F41.9 [facility] [id number] [place] [address] 15216- 8607 August, Simple chronic bronchitis J41.0 ; Hemoptysis R04.2 and Cigarette nicotine dependence without complication F17.210 [facility] [address] 68641- 2594 Jul, Lumbago with sciatica, right side M54.41 [facility] [id number] [place] [address] 38472- 9224 Jul, Lumbago with sciatica, right side M54.41 [facility] [id number] [place] [address] 98670- 6599 Jun, Lumbago with sciatica, right side M54.41 [facility] [id number] [place] [address] 09717- 5613 Jun, Lumbago with sciatica, right side M54.41 [facility] [place] [address] 66114- 8003 Jun, Lumbago with sciatica, right side M54.41 [facility] [id number] [place] [address] 91375 -3610 Jun, Gastroenteritis K52.9 [facility] [place] [id number] [place] [address] 31668- 2020 May, Seizures R56.9 ; Tobacco use Z72.0 ; Tobacco abuse counseling Z71.6 ; Tooth abscess K04.7 ; Pain in right leg M79.604 ; Pain of left leg M79.605 ; Other chronic pain G89.29 and Neuropathy G62.9 [facility] [place] [id number] [place] [address] 95543- 6832 May, Lumbago with sciatica, right side M54.41 [facility] [place] [id number] [place] [address] 53308- 8543 Apr, Lumbago with sciatica, right side M54.41 [facility] [place] [id number] [place] [address] 76027- 5876 Mar, Lumbago with sciatica, right side M54.41 [facility] [place] [id number] [place] [address] 66949- 4002 Mar, [facility] [place] [address] 86497- 7063 Mar, Lumbago with sciatica, right side M54.41 [facility] [place] [address] 05249- 8082 Feb, Lumbago with sciatica, right side M54.41 and Other chronic pain G89.29 [facility] [id number] [place] [address] 41238- 9630 Feb, [facility] [address] [facility] [id number] [address]- 0928 Nov, Dental caries K02.9 [facility] [address] [facility] [id number] [place] [address] 64254- 3954 Oct, Dental examination Z01.20 [facility] [id number] [place] [address] 75851- 9722 Jul, Dental examination Z01.20 [facility] [id number] [place] [address] 38747- 7039 Jul, Dental examination Z01.20 and Dental caries K02.9 [facility] [id number] [place] [address] 75624- 1807 Jun, Dental examination Z01.20 [facility] [id number] [place] [address] 16797- 2333 Jul, [facility] [id number] [place] [address] 47658- 4314 Jul, [facility] [address] [address]- 1724 Apr, [facility] [id number] [place] [address] 93472- 7881 Apr, [facility] [address] [facility] [id number] [address]- 9370 Mar, [facility] [address] [facility] [id number] [place] [address] 60133- 6002 Mar, [facility] [id number] [address]- 5931 Nov, [facility] [id number] [place] [address] 11801- 0002 Nov, [facility] [place] [facility] [address] [id number] [place] [address]- 3331 Nov, [facility] [place] [facility] [address] [id number] [place] [address]- 7066 Nov, [facility] [place] [facility] [address] [id number] [place] [address]- 0141 Oct, [facility] [place] [facility] [address] [id number] [place] [address]- 9919 Oct, [facility] [place] [facility] [address] [id number] [place] [address]- 7353 Sep, [facility] [place] [facility] [address] [id number] [place] [address]- 3532 Sep, [facility] [place] [facility] [address] [id number] [place] [address]- 3834 August, [facility] [place] [facility] [address] [id number] [place] [address]- 2214 August, [facility] [place] [facility] [address] [id number] [place] [address]- 8491 Jul, [facility] [place] [facility] [address] [id number] [place] [address]- 8495 Jul, [facility] [place] [facility] [address] [id number] [place] [address]- 1115 Jul, [facility] [place] [facility] [address] [id number] [place] [address]- 6079 Jul, [facility] [place] [facility] [address] [id number] [place] [address]- 4590 Jul, [facility] [place] [facility] [address] [id number] [place] [address]- 5537 Jul, [facility] [place] [facility] [address] [id number] [place] [address]- 2937 Jul, [facility] [place] [facility] [address] [id number] [place] [address]- 8248 Jul, [facility] [place] [facility] [address] [id number] [place] [address]- 4472 Jul, [facility] [place] [facility] [address] [id number] [place] [address]- 6725 Jul, [facility] [place] [facility] [address] [id number] [place] [address]- 3620 Jun, [facility] [place] [facility] [address] [id number] [place] [address]- 6783 Jun, [facility] [place] [facility] [address] [id number] [place] [address]- 4666 Jun, [facility] [place] [facility] [address] [facility] [id number] [place] [address]- 3178 Jun, [facility] [place] [facility] [address] [id number] [place] [address]- 6843 Jun, [facility] [place] [facility] [address] [id number] [place] [address]- 8749 Jun, [facility] [place] [facility] [address] [id number] [place] [address]- 7415 May, [facility] [place] [facility] [address] [id number] [place] [address]- 4465 May, [facility] [place] [facility] [address] [id number] [place] [address]- 0760 May, [facility] [place] [facility] [address] [id number] [place] [address]- 4826 May, [facility] [place] [facility] [address] [id number] [place] [address]- 9011 Apr, [facility] [place] [facility] [address] [id number] [place] [address]- 8691 Apr, [facility] [place] [facility] [address] [id number] [place] [address]- 3594 Apr, [facility] [place] [facility] [address] [id number] [place] [address]- 3246 Apr, [facility] [place] [facility] [address] [id number] [place] [address]- 2478 Apr, [facility] [place] [facility] [address] [id number] [place] [address]- 4024 Apr, [facility] [place] [facility] [address] [id number] [place] [address]- 7950 Feb, [facility] [place] [facility] [address] [id number] [place] [address]- 9147 Feb, [facility] [place] [facility] [address] [id number] [place] [address]- 5406 Feb, [facility] [place] [facility] [address] [id number] [place] [address]- 1032 Feb, [facility] [place] [facility] [address] [id number] [place] [address]- 7046 Feb, [facility] [place] [facility] [address] [id number] [place] [address]- 1191 Feb, [facility] [place] [facility] [address] [id number] [place] [address]- 2113 Jan, [facility] [place] [facility] [address] [id number], [place] [address]- 6866 Jan, [facility] [place] [facility] [address] [id number], [place] [address]- 8658 Jan, [facility] [place] [facility] [address] [id number] [place] [address]- 7649 Jan, [facility] [place] [facility] [address] [id number] [place] [address]- 2581 Jan, [facility] [place] [facility] [address] [id number] [place] [address]- 9859 Nov, [facility] [place] [facility] [address] [id number] [place] [address]- 2781 Oct, [facility] [place] [address] [id number] [place] [address]- 0129 Sep, [facility] [address] [id number] [place] [address]- 7136 Sep, [facility] [place] [address] [id number] [place] [address]- 9096 August, [facility] [address] [id number] [place] [address]- 9528 Jul, [facility] [address] [id number] [place] [address]- 3598 Jul, [facility] [address] [id number] [place] [address]- 5617 Jun, [facility] [address] [id number] [place] [address]- 2265 Jun, [facility] [address] [id number] [place] [address]- 6388 Jun, [facility] [place] [address] [id number] [place] [address]- 0342 Jun, [facility] [address] [id number] [place] [address]- 0483 Jun, [facility] [place] [address] [id number] [place] [address]- 4744 Jun, [facility] [address] [id number] [place] [address]- 2544 Apr, [facility] [address] [id number] [place] [address]- 9214 Mar, [facility] [address] [id number] [place] [address]- 2546 Mar, [facility] [address] [id number] [place] [address]- 2115 Feb, [facility] [place] [facility] [address] [id number] [place] [address]- 2042 15 Feb, 2012 [facility] [place] [facility] [address] [id number] [place] [address]- 9506 Feb, [facility] [place] [facility] [address] [id number] [place] [address]- 1255 Feb, [facility] [place] [facility] [address] [id number] [place] [address]- 5616 Feb, [facility] [place] [facility] [address] [id number] [place] [address]- 6748 Feb, [facility] [place] [facility] [address] [id number] [place] [address]- 7668 Feb, [facility] [place] [facility] [address] [facility] [id number] [place] [address]- 9744 Feb, [facility] [place] [facility] [address] [id number], [place] [address]- 9856 Jan, [facility] [place] [facility] [address] [facility] [id number] [place] [address]- 3254 Jan, [facility] [place] [facility] [address] [facility] [id number], [place] [address]- 4668 Jan, [facility] [place] [facility] [address] [facility] [id number], [place] [address]- 3873 28 Dec, 2011 [facility] [place] [facility] [address] [id number], [place] [address]- 2971 24 Dec, 2011 [facility] [place] [facility] [address] [id number], [place] [address]- 7083 24 Dec, 2011 [facility] [place] [facility] [address] [id number], [place] [address]- 7337 18 Dec, 2011 [facility] [place] [facility] [address] [facility] [id number], [place] [address]- 7824 18 Dec, 2011 [facility] [place] [facility] [address] [id number], [place] [address]- 3560 Dec, [facility] [address] [id number] [place] [address]- 8093 Nov, [facility] [place] [facility] [address] [id number] [place] [address]- 0186 Oct, [facility] [place] [facility] [address] [id number] [place] [address]- 0574 Oct, [facility] [place] [facility] [address] [id number] [place] [address]- 6605 Oct, [facility] [place] [facility] [address] [id number] [place] [address]- 3358 Sep, [facility] [place] [facility] [address] [id number] [place] [address]- 0815 August, [facility] [address] [id number] [place] [address]- 0070 August, [facility] [place] [facility] [address] [id number] [place] [address]- 0754 Jul, [facility] [place] [facility] [address] [id number] [place] [address]- 8787 Jul, [facility] [place] [facility] [address] [id number] [place] [address]- 3906 Jul, [facility] [place] [facility] [address] [id number] [place] [address]- 1276 Jul, [facility] [place] [facility] [address] [id number] [place] [address]- 6557 Jun, [facility] [place] [facility] [address] [id number] [place] [address]- 5565 27 Jun, 2011 [facility] [place] [facility] [address] [id number] [place] [address]- 4451 Jun, [facility] [place] [facility] [address] [id number] [place] [address]- 1776 16 Jun, 2011 [facility] [place] [facility] [address] [id number] [address]- 2546 Jun, [facility] [address] [id number] [address]- 2976 Jun, [facility] [address], [place] [address]- 2546 Jun, [facility] [address], [place] [address]- 2546 Jun, [facility] [address] [address]- 2546 May, [facility] [address] [id number] [address]- 4076 Apr, [facility] [address] [address]- 3516 Feb, IMMUNIZATIONS No Known Immunizations SOCIAL HISTORY Never Assessed REASON FOR VISIT Refill request PLAN OF CARE VITAL SIGNS MEDICATIONS Unknown Medications RESULTS No Results PROCEDURES No Known procedures INSTRUCTIONS MEDICATIONS ADMINISTERED No Known Medications MEDICAL (GENERAL) HISTORY Type Description Date Medical History Fainting, Seizures, Epilepsy Medical History Hepatitis C Medical History Back Trouble Surgical History cyst removed 03/2015 Surgical History cyst removal 12/2015
--- OUTSIDE RECORDS SUMMARY | 2018-06-26 17:12 | XMS REPORT ---
Author Author YOLETTE DUNLAP Organization [facility] Address [address] [place] [address] Care Team Providers Care Range Examiner Name Role Phone YOLETTE DUNLAP Unavailable PROBLEMS Type Condition ICD9-CM Code BNE88-TZ Code Onset Dates Condition Status SNOMED Code Problem Other chronic pain G89.29 Active 45727269 Problem Lumbago with sciatica, right side M54.41 Active 855956673 Problem Anxiety F41.9 Active 49168564 Problem Cigarette nicotine dependence without complication F17.210 Active 62828537 Problem Other chronic pain G89.29 Active 70243769 Problem Seizures R56.9 Active 32740117 Problem Simple chronic bronchitis J41.0 Active 18205871 Problem Gastroenteritis K52.9 Active 31833989 ALLERGIES No Information ENCOUNTERS Encounter Location Date Diagnosis [facility] [id number] [place] [address] 57968- 0429 August, [facility] [id number] [place] [address] 18886- 2503 Jun, [facility] [id number] [place] [address] 71768- 0124 Apr, Lumbar neuritis M54.16 [facility] [id number] [place] [address] 92468- 4979 Apr, [facility] [id number] [place] [address] 11697- 0917 Apr, Lumbar neuritis M54.16 [facility] [address] 75233- 5561 Mar, Lumbar neuritis M54.16 [facility] [id number] [place] [address] 86585- 5542 Feb, Lumbar neuritis M54.16 [facility] [id number] [place] [address] 46819 2546 Feb, Anxiety F41.9 and Seizures R56.9 [facility] [id number] [place] [address] 64591 2546 Feb, [facility] [id number] [place] [address] 42728 2546 Jan, Lumbar neuritis M54.16 [facility] [id number] [place] [address] 94242 2546 Jan, Seizures R56.9 [facility] [address] 72478 2546 Jan, [facility] [id number] [place] [address] 76528 2546 Dec, Lumbar neuritis M54.16 [facility] [id number] [place] [address] 95196 2546 Dec, [facility] [id number] [place] [address] 45392 2546 Nov, Lumbar neuritis M54.16 [facility] [id number] [place] [address] 03655 2546 Nov, [facility] [id number] [place] [address] 92582 2546 Nov, [facility] [id number] [place] [address] 89875 2546 Nov, Lumbar neuritis M54.16 [facility] [id number] [place] [address] 56498 2546 Oct, Lumbar neuritis M54.16 [facility] [id number] [place] [address] 96853 2546 Sep, Lumbago with sciatica, right side M54.41 and Seizures R56.9 [facility] [address] 88827- 2257 07 Sep, 2016 Lumbar neuritis M54.16 [place] [address] 37922- 9851 August, Lumbar neuritis M54.16 and Anxiety F41.9 [place] [address] 51209- 1224 August, Simple chronic bronchitis J41.0 ; Hemoptysis R04.2 and Cigarette nicotine dependence without complication F17.210 [place] [address] 87956- 1273 Jul, Lumbago with sciatica, right side M54.41 [place] [address] 44099- 9803 Jul, Lumbago with sciatica, right side M54.41 [place] [address] 38826- 3085 Jun, Lumbago with sciatica, right side M54.41 [place] [address] 10020- 2327 Jun, Lumbago with sciatica, right side M54.41 [place] [address] 73612- 1530 Jun, Lumbago with sciatica, right side M54.41 [facility] [address] 28764 -6447 Jun, Gastroenteritis K52.9 [place] [address] 98508- 4723 May, Seizures R56.9 ; Tobacco use Z72.0 ; Tobacco abuse counseling Z71.6 ; Tooth abscess K04.7 ; Pain in right leg M79.604 ; Pain of left leg M79.605 ; Other chronic pain G89.29 and Neuropathy G62.9 [place] [address] [place] [address]- 0934 May, Lumbago with sciatica, right side M54.41 [facility] [id number] [place] [address] 50520- 7046 Apr, Lumbago with sciatica, right side M54.41 [facility] [id number] [place] [address] 55967- 4566 Mar, Lumbago with sciatica, right side M54.41 [facility] [id number] [place] [address] 30235- 3700 Mar, [facility] [id number] [place] [address] 34016- 0652 Mar, Lumbago with sciatica, right side M54.41 [facility] [id number] [place] [address] 78674- 9662 Feb, Lumbago with sciatica, right side M54.41 and Other chronic pain G89.29 [facility] [id number] [place] [address] 02625- 5153 Feb, [facility] [id number] [place] [address] 15583- 9391 Nov, Dental caries K02.9 [facility] [id number] [place] [address] 03741- 6307 Oct, Dental examination Z01.20 [facility] [id number] [place] [address] 93375- 9132 Jul, Dental examination Z01.20 [facility] [id number] [place] [address] 94248- 2678 Jul, Dental examination Z01.20 and Dental caries K02.9 [facility] [address] [place] [address] 29116- 9468 Jun, Dental examination Z01.20 [facility] [id number] [place] [address] 11456- 3293 Jul, [facility] [place] [facility] [address] [id number] [place] [address]- 7800 Jul, [facility] [place] [facility] [address] [id number] [place] [address]- 8932 Apr, [facility] [place] [facility] [address] [id number] [place] [address]- 2364 Apr, [facility] [place] [facility] [address] [id number] [place] [address]- 6103 Mar, [facility] [place] [facility] [address] [id number] [place] [address]- 5747 Mar, [facility] [place] [facility] [address] [id number] [place] [address]- 5097 Nov, [facility] [place] [facility] [address] [id number] [place] [address]- 5089 Nov, [facility] [place] [facility] [address] [id number] [place] [address]- 6710 Nov, [facility] [place] [facility] [address] [id number] [place] [address]- 0618 Nov, [facility] [place] [facility] [address] [id number] [place] [address]- 8254 Oct, [facility] [place] [facility] [address] [id number] [place] [address]- 2929 Oct, [facility] [place] [facility] [address] [id number] [place] [address]- 6505 Sep, [facility] [place] [facility] [address] [id number] [place] [address]- 7558 Sep, [facility] [place] [facility] [address] [id number] [place] [address]- 0279 August, [facility] [place] [facility] [address] [id number] [place] [address]- 7810 August, [facility] [place] [facility] [address] [id number] [place] [address]- 2057 29 Jul, 2013 [facility] [place] [facility] [address] [id number] [place] [address]- 1094 29 Jul, 2013 [facility] [place] [facility] [address] [id number] [place] [address]- 0936 Jul, [facility] [place] [facility] [address] [id number] [place] [address]- 7496 Jul, [facility] [place] [facility] [address] [id number] [place] [address]- 3864 Jul, [facility] [place] [facility] [address] [id number] [place] [address]- 9839 Jul, [facility] [place] [facility] [address] [id number] [place] [address]- 6798 Jul, [facility] [place] [facility] [address] [id number] [place] [address]- 0682 Jul, [facility] [place] [facility] [address] [id number] [place] [address]- 1117 Jul, [facility] [place] [facility] [address] [id number] [place] [address]- 6796 Jul, [facility] [place] [facility] [address] [id number] [place] [address]- 9937 Jun, [facility] [place] [facility] [address] [id number] [place] [address]- 7808 Jun, [facility] [place] [facility] [address] [id number] [place] [address]- 2002 10 Jun, 2013 [facility] [place] [facility] [address] [id number] [place] [address]- 4076 08 Jun, 2013 [facility] [place] [facility] [address] [id number] [place] [address]- 2666 Jun, [facility] [place] [facility] [address] [id number] [place] [address]- 9799 Jun, [facility] [place] [facility] [address] [id number] [place] [address]- 6536 May, [facility] [place] [facility] [address] [id number] [place] [address]- 8199 May, [facility] [place] [facility] [address] [id number] [place] [address]- 2077 May, [facility] [place] [facility] [address] [id number] [place] [address]- 7160 May, [facility] [place] [facility] [address] [id number] [place] [address]- 0015 Apr, [facility] [place] [facility] [address] [id number] [place] [address]- 9320 Apr, [facility] [place] [facility] [address] [id number] [place] [address]- 0775 Apr, [facility] [place] [facility] [address] [id number] [place] [address]- 7818 Apr, [facility] [place] [facility] [address] [id number] [place] [address]- 4870 Apr, [facility] [place] [facility] [address] [id number] [place] [address]- 4981 Apr, [facility] [place] [facility] [address] [id number] [place] [address]- 3671 Feb, [facility] [place] [facility] [address] [id number] [place] [address]- 9585 Feb, [facility] [place] [facility] [address] [id number] [place] [address]- 4742 Feb, [facility] [place] [facility] [address] [id number] [place] [address]- 8445 Feb, [facility] [place] [facility] [address] [id number] [place] [address]- 2744 Feb, [facility] [place] [facility] [address] [id number] [place] [address]- 2589 08 Feb, 2013 [facility] [address] [id number] [place] [address]- 8235 31 Jan, 2013 [facility] [address] [id number] [place] [address]- 5086 Jan, [facility] [address] [id number] [place] [address]- 1450 Jan, [facility] [address] [id number] [place] [address]- 2632 Jan, [facility] [address] [id number] [place] [address]- 6227 Jan, [facility] [address] [id number] [place] [address]- 9467 Nov, [facility] [address] [id number] [place] [address]- 4266 Oct, [facility] [address] [id number] [place] [address]- 5467 Sep, [facility] [address] [id number] [place] [address]- 2091 Sep, [facility] [address] [id number] [place] [address]- 7641 August, [facility] [address] [id number] [place] [address]- 0655 Jul, [facility] [place] [facility] [address] [id number] [place] [address]- 6061 Jul, [facility] [place] [facility] [address] [id number] [place] [address]- 2698 Jun, [facility] [place] [facility] [address] [id number] [place] [address] 2545 Jun, [facility] [place] [facility] [address] [id number] [place] [address]- 0195 Jun, [facility] [place] [facility] [address] [id number] [place] [address]- 9148 Jun, [facility] [place] [facility] [address] [id number] [place] [address]- 3379 Jun, [facility] [place] [facility] [address] [id number] [place] [address]- 2472 05 Jun, 2012 [facility] [place] [facility] [address] [id number] [place] [address]- 6657 Apr, [facility] [place] [facility] [address] [id number] [place] [address]- 5401 Mar, [facility] [place] [facility] [address] [id number] [place] [address]- 3642 Mar, [facility] [place] [facility] [address] [facility] [id number] [place] [address]- 5623 Feb, [facility] [place] [facility] [address] [id number] [place] [address]- 7038 Feb, [facility] [place] [facility] [address] [id number] [place] [address]- 1464 Feb, [facility] [place] [facility] [address] [facility] [id number] [place] [address]- 9775 Feb, [facility] [place] [facility] [address] [facility] [id number] [place] [address]- 2598 Feb, [facility] [place] [facility] [address] [id number], [place] [address]- 0387 Feb, [facility] [place] [facility] [address] [id number] [place] [address]- 0903 Feb, [facility] [place] [facility] [address] [id number] [place] [address]- 0089 Feb, [facility] [place] [facility] [address] [facility] [id number] 6268 05 Jan, 2012 [facility] [place] [facility] [address] [id number], [place] [address]- 1956 Jan, [facility] [place] [facility] [address] [id number] [place] 1492 Jan, [facility] [place] [facility] [address] [id number] [place] [address]- 9812 28 Dec, 2011 [facility] [place] [facility] [address] [id number] [place] [address]- 7206 24 Dec, 2011 [facility] [place] [facility] [address] [id number] [place] [address]- 5117 24 Dec, 2011 [facility] [place] [facility] [address] [id number] [place] [address]- 1448 18 Dec, 2011 [facility] [place] [facility] [address] [id number] [place] [address]- 8263 Dec, [facility] [place] [facility] [address] [id number] [place] [address]- 6241 17 Dec, 2011 [facility] [place] [facility] [address] [id number] [place] [address]- 0838 Nov, [facility] [place] [facility] [address] [id number] [place] [address]- 2487 Oct, [facility] [place] [facility] [address] [id number] [place] [address]- 5180 Oct, [facility] [place] [facility] [address] [id number] [place] [address]- 5720 Oct, [facility] [place] [facility] [address] [id number] [place] [address]- 6791 Sep, [facility] [place] [facility] [address] [id number] [place] [address]- 1155 August, [facility] [place] [facility] [address] [id number] [place] [address]- 3361 August, [facility] [place] [facility] [address] [id number] [place] [address]- 5171 Jul, [facility] [place] [facility] [address] [id number], [place] [address]- 3536 13 Jul, 2011 [facility] [address] [address]- 6836 Jul, [facility] [address] [address]- 8406 Jul, [facility] [address] [address]- 3566 Jun, [facility] [address] [facility] [id number], [place] [address]- 4603 Jun, [facility] [address] [address]- 7747 Jun, [facility] [address] [address]- 9176 Jun, [facility] [address] [address]- 7819 Jun, [facility] [address] [address]- 7114 Jun, [facility] [address] [address]- 6796 Jun, [facility] [address] [address]- 3106 Jun, [facility] [address] [address]- 9256 May, [facility] [id number] [address]- 8257 Apr, [facility] [address] [address]- 8851 Feb, IMMUNIZATIONS No Known Immunizations SOCIAL HISTORY Never Assessed REASON FOR VISIT Controlled Refill Requests PLAN OF CARE VITAL SIGNS MEDICATIONS Medication Instructions Dosage Frequency Start Date End Date Duration Status Oxycodone HCl 10 MG Orally every 6 hrs 1 tablet as needed 6h 24 Jan, 2017 28 days Active Xanax 1 MG Orally Twice a day 1 tablet 12h August, 28 days Active RESULTS No Results PROCEDURES No Known procedures INSTRUCTIONS MEDICATIONS ADMINISTERED No Known Medications MEDICAL (GENERAL) HISTORY Type Description Date Medical History Fainting, Seizures, Epilepsy Medical History Hepatitis C Medical History Back Trouble Surgical History cyst removed 03/2015 Surgical History cyst removal 12/2015
--- OUTSIDE RECORDS SUMMARY | 2018-06-26 17:12 | XMS REPORT ---
Author Author JESSICA DELANEY [facility] Address [address] [place] [address] Care Team Providers Care Patient Care Technician Instructor Name Role Phone JESSICA DELANEY Unavailable PROBLEMS Type Condition ICD9-CM Code CUK35-FM Code Onset Dates Condition Status SNOMED Code Problem Other chronic pain G89.29 Active 60493917 Problem Lumbago with sciatica, right side M54.41 Active 178219386 Problem Anxiety F41.9 Active 85737703 Problem Cigarette nicotine dependence without complication F17.210 Active 51961488 Problem Other chronic pain G89.29 Active 59079188 Problem Seizures R56.9 Active 03646854 Problem Simple chronic bronchitis J41.0 Active 97645062 Problem Gastroenteritis K52.9 Active 73727391 ALLERGIES Substance Reaction Event Type Date Status Tramadol HCl Pt states induces seizures Drug Allergy August, Active Penicillamine Unknown Drug Allergy August, Active Dilantin hives Drug Allergy August, Active BusPIRone HCl Pt states induces seizures Drug Allergy August, Active SOCIAL HISTORY Never Assessed PLAN OF CARE Activity Details Follow Up prn Reason: VITAL SIGNS Height 70 in 2016-08-31 Weight 146.5 lbs 2016-08-31 Temperature 98.2 degrees Fahrenheit 2016-08-31 Heart Rate 84 bpm 2016-08-31 Respiratory Rate 20 2016-08-31 Oximetry 98 % 2016-08-31 BMI 21.02 kg/m2 2016-08-31 Blood pressure systolic 111 mmHg 2016-08-31 Blood pressure diastolic 75 mmHg 2016-08-31 MEDICATIONS Medication Instructions Dosage Frequency Start Date End Date Duration Status Doxycycline Hyclate 100 mg Orally Twice a day 1 capsule 12h August, August, 07 days Active Lamictal 150 MG Orally 2 times a day 1 tablet 12h Jun, 30 days Active Viagra 100 MG Orally Once a day 1 tablet as needed 24h 10 Active Prilosec 20 mg Orally Once a day 1 capsule 24h Active Topamax 100 MG Orally Twice a day 1 Tablet by Oral route 2 daily 12h 03 Apr Active Xanax 1 MG Orally Once a day 1 tablet 24h 23 Mar, 2016 28 days Active [place] 10-325 MG Orally 3 times a day 1 tablet as needed 8h 26 Jul, 2016 28 days Active RESULTS Name Result Date Reference Range Xray : Chest (IN HOUSE) 2016-08-31 PROCEDURES Procedure Date Ordered Result Body Site MEASURE BLOOD OXYGEN LEVEL August 31, 2016 CHEST X-RAY August 31, 2016 IMMUNIZATIONS No Known Immunizations MEDICAL (GENERAL) HISTORY Type Description Date Medical History Fainting, Seizures, Epilepsy Medical History Hepatitis C Medical History Back Trouble Surgical History cyst removed 03/2015 Surgical History cyst removal 12/2015
--- OUTSIDE RECORDS SUMMARY | 2018-06-26 17:13 | XMS REPORT ---
Author Author YOLETTE DUNLAP [facility] [address] Address [address] [place] [address] Care Team Providers Care Swimming Pool Salesperson Name Role Phone GERMÁN YOLETTE Unavailable PROBLEMS Type Condition ICD9-CM Code [id number] Code Onset Dates Condition Status SNOMED Code Problem Lumbago with sciatica, right side M54.41 Active 722227731 Problem Other chronic pain G89.29 Active 20195811 Problem Anxiety F41.9 Active 11912282 Problem Simple chronic bronchitis J41.0 Active 22680976 Problem Other chronic pain G89.29 Active 71083999 Problem Seizures R56.9 Active 17511979 Problem Cigarette nicotine dependence without complication F17.210 Active 69793924 Problem Gastroenteritis K52.9 Active 35754846 ALLERGIES Substance Reaction Event Type Date Status Tramadol HCl Pt states induces seizures Drug Allergy Mar, Active Dilantin hives Drug Allergy Mar, Active BusPIRone HCl Pt states induces seizures Drug Allergy Mar, Active SOCIAL HISTORY No smoking Hx information available PLAN OF CARE VITAL SIGNS Height 70 in 2016-04-17 Weight 154.4 lbs 2016-04-17 Temperature 99.0 degrees Fahrenheit 2016-04-17 Heart Rate 98 bpm 2016-04-17 Respiratory Rate 18 2016-04-17 BMI 22.15 kg/m2 2016-04-17 Blood pressure systolic 114 mmHg 2016-04-17 Blood pressure diastolic 72 mmHg 2016-04-17 MEDICATIONS Medication Instructions Dosage Frequency Start Date End Date Duration Status Lamictal 150 MG Orally 2 times a day 1 tablet 12h Jun, 30 days Active Viagra 100 MG Orally Once a day 1 tablet as needed 24h Mar, Active [place] 10-325 MG Orally 2 times a day 1 tablet as needed 12h Mar, Active Prilosec 20 mg Orally Once a day 1 capsule 24h Active Xanax 1 MG Orally Once a day 1 tablet 24h Mar, Active Topamax 100 MG Orally Twice a day 1 Tablet by Oral route 2 daily 12h Apr Active RESULTS No Results PROCEDURES Procedure Date Ordered Related Diagnosis Body Site Office Visit, Est Pt., Level 3 Apr 17, 2016 IMMUNIZATIONS No Known Immunizations
--- OUTSIDE RECORDS SUMMARY | 2018-06-26 17:13 | XMS REPORT ---
Author Author YOLETTE DUNLAP [facility] Address [address] [place] [address] Care Team Providers Care Staffing Branch Manager Name Role Phone GERMÁN YOLETTE Unavailable PROBLEMS Type Condition ICD9-CM Code [id number] Code Onset Dates Condition Status SNOMED Code Problem Other chronic pain G89.29 Active 86446284 Problem Lumbago with sciatica, right side M54.41 Active 974674266 Problem Anxiety F41.9 Active 69167592 Problem Cigarette nicotine dependence without complication F17.210 Active 41530193 Problem Other chronic pain G89.29 Active 93237333 Problem Seizures R56.9 Active 69354395 Problem Simple chronic bronchitis J41.0 Active 15244348 Problem Gastroenteritis K52.9 Active 22981111 ALLERGIES Substance Reaction Event Type Date Status Tramadol HCl Pt states induces seizures Drug Allergy May, Active Penicillamine Unknown Drug Allergy May, Active Dilantin hives Drug Allergy May, Active BusPIRone HCl Pt states induces seizures Drug Allergy May, Active SOCIAL HISTORY Never Assessed PLAN OF CARE VITAL SIGNS Height 70 in 2016-06-15 Weight 150.4 lbs 2016-06-15 Temperature 98.7 degrees Fahrenheit 2016-06-15 Heart Rate 92 bpm 2016-06-15 Respiratory Rate 18 2016-06-15 BMI 21.58 kg/m2 2016-06-15 Blood pressure systolic 122 mmHg 2016-06-15 Blood pressure diastolic 76 mmHg 2016-06-15 MEDICATIONS Medication Instructions Dosage Frequency Start Date End Date Duration Status Lamictal 150 MG Orally 2 times a day 1 tablet 12h Jun, 30 days Active Prilosec 20 mg Orally Once a day 1 capsule 24h Active Xanax 1 MG Orally Once a day 1 tablet 24h Mar, 28 days Active Amoxicillin 500 MG Orally every 12 hrs 2 capsules 12h 20 May, 2016 Jun, 10 days Active Serafina 10-325 MG Orally 2 times a day 1 tablet as needed 12h 16 May, 2016 28 days Active Viagra 100 MG Orally Once a day 1 tablet as needed 24h 10 Active Topamax 100 MG Orally Twice a day 1 Tablet by Oral route 2 daily 12h Apr Active Clindamycin HCl 150 MG Orally 6 2 capsules 20 May, 2016 Jun, 10 days Active RESULTS No Results PROCEDURES No Known procedures IMMUNIZATIONS No Known Immunizations MEDICAL (GENERAL) HISTORY Type Description Date Medical History Fainting, Seizures, Epilepsy Medical History Hepatitis C Medical History Back Trouble Surgical History cyst removed 03/2015 Surgical History cyst removal 12/2015
--- OUTSIDE RECORDS SUMMARY | 2018-06-26 17:13 | XMS REPORT ---
Author Author YOLETTE DUNLAP [facility] eClinicalWorks Address Unknown Phone Unavailable Care Team Providers Care Tool Hardener Name Role Phone YOLETTE DUNLAP CP Unavailable Allergies No Known Allergies Problems Problem Type Condition Code Onset Dates Condition Status Problem Disturbance of skin sensation 782.0 Active Problem Encounter for long-term (current) use of other medications V58.69 Active Problem Generalized osteoarthrosis, unspecified site 715.00 Active Problem Unspecified viral hepatitis C without hepatic coma 070.70 Active Problem Acute sinusitis, unspecified 461.9 Active Problem Disturbance of salivary secretion 527.7 Active Problem Pain in joint, site unspecified 719.40 Active Problem Other B-complex deficiencies 266.2 Active Problem Nondependent cannabis abuse, unspecified 305.20 Active Problem Other malaise and fatigue 780.79 Active Problem Dysuria 788.1 Active Problem Other specified pre-operative examination V72.83 Active Problem Nondependent alcohol abuse, 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 Active Problem Other chronic pain G89.29 Active Problem Anxiety state, unspecified 300.00 Active Problem Other, mixed, or unspecified nondependent drug abuse, in remission 305.93 Active Problem Personal history of alcoholism V11.3 Active Problem Lumbago with sciatica, right side M54.41 Active Problem Impotence of 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.84 Active Problem Chest pain, unspecified 786.50 Active Problem Dermatophytosis of nail 110.1 Active Problem Cellulitis and abscess of upper arm and forearm 682.3 Active Problem 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 Active Problem Esophageal reflux 530.81 Active Problem Unspecified hereditary and idiopathic peripheral neuropathy 356.9 Active Problem Nonspecific elevation of levels of transaminase or lactic acid dehydrogenase (LDH) 790.4 Active Problem Other and unspecified alcohol dependence, unspecified drunkenness 303.90 Active Problem Unspecified episodic mood disorder 296.90 Active Problem Unspecified myalgia and myositis 729.1 Active Problem Shortness of breath 786.05 Active Problem Combinations of drug dependence excluding opioid type drug, unspecified abuse 304.80 Active Medications Medication Code System Code Instructions Start Date End Date Status Dosage Topamax [facility] [address]-59 100 MG Orally Twice a day Apr 28, 2013 1 Tablet by Oral route 2 daily Results No Known Results Summary Purpose eClinicalWorks Submission
--- OUTSIDE RECORDS SUMMARY | 2018-06-26 17:13 | XMS REPORT ---
Author Author YOLETTE DUNLAP Organization [facility] Address [address] [place] [address] Care Team Providers Care Casino Duty Manager Name Role Phone GERMÁN YOLETTE Unavailable PROBLEMS Type Condition ICD9-CM Code ANE24-TQ Code Onset Dates Condition Status SNOMED Code Problem Other chronic pain G89.29 Active 90141170 Problem Lumbago with sciatica, right side M54.41 Active 184209590 Problem Anxiety F41.9 Active 42006440 Problem Cigarette nicotine dependence without complication F17.210 Active 09755332 Problem Other chronic pain G89.29 Active 80058627 Problem Seizures R56.9 Active 14461862 Problem Simple chronic bronchitis J41.0 Active 18343823 Problem Gastroenteritis K52.9 Active 22576469 ALLERGIES No Information SOCIAL HISTORY Never Assessed PLAN OF CARE VITAL SIGNS MEDICATIONS Medication Instructions Dosage Frequency Start Date End Date Duration Status Xanax 1 MG Orally Once a day 1 tablet 24h Mar, 28 days Active Rufus 10-325 MG Orally 2 times a day 1 tablet as needed 12h 16 May, 2016 28 days Active RESULTS No Results PROCEDURES No Known procedures IMMUNIZATIONS No Known Immunizations MEDICAL (GENERAL) HISTORY Type Description Date Medical History Fainting, Seizures, Epilepsy Medical History Hepatitis C Medical History Back Trouble Surgical History cyst removed 03/2015 Surgical History cyst removal 12/2015
--- OUTSIDE RECORDS SUMMARY | 2018-06-26 17:13 | XMS REPORT ---
Author KATIA Jeter eClinicalWorks Address Unknown Phone Unavailable Care Team Providers Care Slitting Machine Operator Name Role Phone KATIA COLLAZO CP Unavailable Allergies, Adverse Reactions, Alerts Substance Reaction Event Type N.K.D.A. Info Not Available Non Drug Allergy Problems Problem Type Condition Code Onset Dates Condition Status Assessment Dental caries K02.9 Active Problem Disturbance of skin sensation 782.0 Active Problem Encounter for long-term (current) use of other medications V58.69 Active Problem Generalized osteoarthrosis, unspecified site 715.00 Active Problem Unspecified viral hepatitis C without hepatic coma 070.70 Active Problem Unspecified episodic mood disorder 296.90 Active Problem Acute sinusitis, unspecified 461.9 Active Problem Unspecified myalgia and myositis 729.1 Active Problem Disturbance of salivary secretion 527.7 Active Problem Pain in joint, site unspecified 719.40 Active Problem Dysuria 788.1 Active Problem Nondependent cannabis abuse, unspecified 305.20 Active Problem Cellulitis and abscess of upper arm and forearm 682.3 Active Problem 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 Active Problem Impotence of 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.84 Active Problem Other malaise and fatigue 780.79 Active Problem Anxiety state, unspecified 300.00 Active Problem Other B-complex deficiencies 266.2 Active Problem Other specified pre-operative examination V72.83 Active Problem Nondependent alcohol abuse, 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 Active Problem Chest pain, unspecified 786.50 Active Problem Dermatophytosis of nail 110.1 Active Problem Nonspecific elevation of levels of transaminase or lactic acid dehydrogenase (LDH) 790.4 Active Problem Other and unspecified alcohol dependence, unspecified drunkenness 303.90 Active Problem Personal history of alcoholism V11.3 Active Problem Other, mixed, or unspecified nondependent drug abuse, in remission 305.93 Active Problem Shortness of breath 786.05 Active Problem Combinations of drug dependence excluding opioid type drug, unspecified abuse 304.80 Active Problem Esophageal reflux 530.81 Active Problem Unspecified hereditary and idiopathic peripheral neuropathy 356.9 Active Medications Medication Code System Code Instructions Start Date End Date Status Dosage Topamax [facility] [address]-08 100 mg Apr 28, 2013 1 Tablet by Oral route 2 daily Neurontin [facility] [address]-30 600 mg Apr 28, 2013 1 Tablet 3 times per day Lamictal [facility] [address]-71 150 mg June 29, 2013 take 1 tablet by Oral route 2 times per day Aciphex [facility] [address]-93 20 mg May 11, 2014 take 1 tablet by Oral route 1 time per day Pt needs f/u appt with [facility] for refills Procedures Procedure Coding System Code Date EXTRAC ERUPTED TOOTH/EXPOSED ROOT CPT-4 D7140 Dec 02, 2015 Vital Signs Date/Time: Dec 02, 2015 Blood Pressure Diastolic 72 mmHg Blood Pressure Systolic 114 mmHg Height 70 in Results No Known Results Summary Purpose eClinicalWorks Submission
--- OUTSIDE RECORDS SUMMARY | 2018-06-26 17:13 | XMS REPORT ---
Author Author YOLETTE DUNLAP [facility] Address [address] [place] [address] Care Team Providers Care Production Control Planner Name Role Phone YOLETTE DUNLAP Unavailable PROBLEMS Type Condition ICD9-CM Code BII01-UJ Code Onset Dates Condition Status SNOMED Code Problem Other chronic pain G89.29 Active 34259877 Problem Lumbago with sciatica, right side M54.41 Active 604863612 Problem Anxiety F41.9 Active 02525648 Problem Cigarette nicotine dependence without complication F17.210 Active 74128029 Problem Other chronic pain G89.29 Active 10526517 Problem Seizures R56.9 Active 26063753 Problem Simple chronic bronchitis J41.0 Active 84587441 Problem Gastroenteritis K52.9 Active 37333711 ALLERGIES Substance Reaction Event Type Date Status Tramadol HCl Pt states induces seizures Drug Allergy Jun, Active Penicillamine Unknown Drug Allergy Jun, Active Dilantin hives Drug Allergy Jun, Active BusPIRone HCl Pt states induces seizures Drug Allergy Jun, Active SOCIAL HISTORY Never Assessed PLAN OF CARE Activity Details Follow Up prn Reason: VITAL SIGNS Height 70 in 2016-06-24 Weight 145.8 lbs 2016-06-24 Temperature 98.5 degrees Fahrenheit 2016-06-24 Heart Rate 78 bpm 2016-06-24 Respiratory Rate 18 2016-06-24 BMI 20.92 kg/m2 2016-06-24 Blood pressure systolic 118 mmHg 2016-06-24 Blood pressure diastolic 70 mmHg 2016-06-24 MEDICATIONS Medication Instructions Dosage Frequency Start Date End Date Duration Status Viagra 100 MG Orally Once a day 1 tablet as needed 24h 10 Active Prilosec 20 mg Orally Once a day 1 capsule 24h Active Lamictal 150 MG Orally 2 times a day 1 tablet 12h Jun, 30 days Active Xanax 1 MG Orally Once a day 1 tablet 24h Mar, 28 days Active Topamax 100 MG Orally Twice a day 1 Tablet by Oral route 2 daily 12h Apr Active Lumpkin 10-325 MG Orally 2 times a day 1 tablet as needed 12h 16 May, 2016 28 days Active Zofran 4 MG Orally every 8 hours, PRN 1 tablet Jun, 7 days Active Zantac 150 Maximum Strength 150 MG Orally twice per day 1 tablet Jun, 14 days Active RESULTS No Results PROCEDURES No Known procedures IMMUNIZATIONS No Known Immunizations MEDICAL (GENERAL) HISTORY Type Description Date Medical History Fainting, Seizures, Epilepsy Medical History Hepatitis C Medical History Back Trouble Surgical History cyst removed 03/2015 Surgical History cyst removal 12/2015
--- OUTSIDE RECORDS SUMMARY | 2018-06-26 17:13 | XMS REPORT ---
Author Author YOLETTE DUNLAP Organization [facility] Address [address] [place] [address] Care Team Providers Care Senior Market Intelligence Consultant Name Role Phone YOLETTE DUNLAP Unavailable PROBLEMS Type Condition ICD9-CM Code HCB23-CE Code Onset Dates Condition Status SNOMED Code Problem Other chronic pain G89.29 Active 26326589 Problem Lumbago with sciatica, right side M54.41 Active 487388193 Problem Anxiety F41.9 Active 81994696 Problem Cigarette nicotine dependence without complication F17.210 Active 98176958 Problem Other chronic pain G89.29 Active 17946340 Problem Seizures R56.9 Active 27460994 Problem Simple chronic bronchitis J41.0 Active 93656068 Problem Gastroenteritis K52.9 Active 56565606 ALLERGIES No Information SOCIAL HISTORY Never Assessed PLAN OF CARE VITAL SIGNS MEDICATIONS Medication Instructions Dosage Frequency Start Date End Date Duration Status Webster 10-325 MG Orally 3 times a day 1 tablet as needed 8h Jun, Jun, 28 days Active RESULTS No Results PROCEDURES No Known procedures IMMUNIZATIONS No Known Immunizations MEDICAL (GENERAL) HISTORY Type Description Date Medical History Fainting, Seizures, Epilepsy Medical History Hepatitis C Medical History Back Trouble Surgical History cyst removed 03/2015 Surgical History cyst removal 12/2015
--- OUTSIDE RECORDS SUMMARY | 2018-06-26 17:13 | XMS REPORT ---
Author Author JOSEE WEINER Organization [facility] Address [address] [place] [address] Care Team Providers Care Manager Operations And Procurement Name Role Phone JOSEE WEINER Unavailable PROBLEMS Type Condition ICD9-CM Code TYD78-YD Code Onset Dates Condition Status SNOMED Code Problem Other chronic pain G89.29 Active 85643027 Problem Lumbago with sciatica, right side M54.41 Active 488125013 Problem Anxiety F41.9 Active 57178249 Problem Cigarette nicotine dependence without complication F17.210 Active 97189994 Problem Other chronic pain G89.29 Active 44118540 Problem Seizures R56.9 Active 43161611 Problem Simple chronic bronchitis J41.0 Active 62653816 Problem Gastroenteritis K52.9 Active 75529475 ALLERGIES No Information ENCOUNTERS Encounter Location Date Diagnosis [facility] [id number] [place] [address] 13943- 5026 13 Jun, 2017 [place] [id number] [place] [address] 75530- 8544 18 Apr, 2017 Lumbar neuritis M54.16 [place] [id number] [place] [address] 53469- 0747 16 Apr, 2017 [facility] [id number] [place] [address] 60144- 8912 15 Apr, 2017 Lumbar neuritis M54.16 [place] [id number] [place] [address] 01062- 3376 Mar, Lumbar neuritis M54.16 [facility] [id number] [place] [address] 59068- 4168 Feb, Lumbar neuritis M54.16 [place] [address] 10890- 9655 Feb, Anxiety F41.9 and Seizures R56.9 [facility] [id number] [place] [address] 72357- 0946 Feb, [facility] [id number] [place] [address] 31584- 5866 Jan, Lumbar neuritis M54.16 [facility] [address] [address] 2546 Jan, Seizures R56.9 [facility] [id number] [place] [address] 69112- 5796 Jan, [facility] [id number] [place] [address] 92862- 4006 Dec, Lumbar neuritis M54.16 [facility] [id number] [place] [address] 55993- 7736 Dec, [facility] [id number] [place] [address] 95369- 1286 Nov, Lumbar neuritis M54.16 [facility] [id number] [place] [address] 76593- 9386 Nov, [facility] [id number] [place] [address] 54770- 0189 Nov, [facility] [id number] [place] [address] 66184- 8711 Nov, Lumbar neuritis M54.16 [facility] [id number] [place] [address] 00363- 8980 Oct, Lumbar neuritis M54.16 [facility] [id number] [place] [address] 79316- 2546 Sep, Lumbago with sciatica, right side M54.41 and Seizures R56.9 [facility] [id number] [place] [address] 38833- 0826 Sep, Lumbar neuritis M54.16 [place] [address] 55782- 1048 August, Lumbar neuritis M54.16 and Anxiety F41.9 [place] [address] 73899- 5680 August, Simple chronic bronchitis J41.0 ; Hemoptysis R04.2 and Cigarette nicotine dependence without complication F17.210 [place] [address] 29210- 4530 Jul, Lumbago with sciatica, right side M54.41 [place] [address] 03706- 1790 Jul, Lumbago with sciatica, right side M54.41 [place] [address] 06720- 4724 Jun, Lumbago with sciatica, right side M54.41 [place] [address] 81394- 7064 Jun, Lumbago with sciatica, right side M54.41 [place] [address] 83259- 6414 Jun, Lumbago with sciatica, right side M54.41 [facility] [address] 03171 -8400 Jun, Gastroenteritis K52.9 [place] [address] 50707- 7648 May, Seizures R56.9 ; Tobacco use Z72.0 ; Tobacco abuse counseling Z71.6 ; Tooth abscess K04.7 ; Pain in right leg M79.604 ; Pain of left leg M79.605 ; Other chronic pain G89.29 and Neuropathy G62.9 [place] [address] 79462- 6803 16 May, 2016 Lumbago with sciatica, right side M54.41 [facility] [address] [address]- 5850 Apr, Lumbago with sciatica, right side M54.41 [facility] [address] [facility] [id number] [address]- 4136 Mar, Lumbago with sciatica, right side M54.41 [facility] [id number] [place] [address] 16834- 9406 Mar, [facility] [id number] [place] [address] 40445- 7816 Mar, Lumbago with sciatica, right side M54.41 [facility] [id number] [place] [address] 81897- 4267 Feb, Lumbago with sciatica, right side M54.41 and Other chronic pain G89.29 [facility] [id number] [place] [address] 43163- 9029 Feb, [facility] [id number] [place] [address] 37043- 1925 Nov, Dental caries K02.9 [facility] [address] [address]- 1137 Oct, Dental examination Z01.20 [facility] [address] [address]- 8458 Jul, Dental examination Z01.20 [facility] [address] [address]- 0619 Jul, Dental examination Z01.20 and Dental caries K02.9 [facility] [address] [address]- 3706 Jun, Dental examination Z01.20 [facility] [address], [place] [address]- 2471 Jul, [facility] [id number] [place] [address]- 2699 Jul, [facility] [address] [id number] [place] [address]- 5965 Apr, [facility] [place] [facility] [address] [id number] [place] [address]- 7983 Apr, [facility] [address] [id number] [place] [address]- 0012 Mar, [facility] [place] [facility] [address] [id number] [place] [address]- 3124 Mar, [facility] [place] [facility] [address] [id number] [place] [address]- 0987 Nov, [facility] [place] [facility] [address] [id number] [place] [address]- 3144 Nov, [facility] [address] [id number] [place] [address]- 8256 Nov, [facility] [address] [id number] [place] [address]- 0228 Nov, [facility] [place] [facility] [address] [id number] [place] [address]- 1201 Oct, [facility] [place] [facility] [address] [id number] [place] [address]- 1536 Oct, [facility] [place] [facility] [address] [id number] [place] [address]- 8812 Sep, [facility] [place] [facility] [address] [id number] [place] [address]- 4939 Sep, [facility] [place] [facility] [address] [id number] [place] [address]- 8758 August, [facility] [place] [facility] [address] [id number] [place] [address]- 3107 August, [facility] [place] [facility] [address] [id number] [place] [address]- 3948 Jul, [facility] [place] [facility] [address] [id number] [place] [address]- 2204 Jul, [facility] [place] [facility] [address] [id number] [place] [address]- 5711 Jul, [facility] [place] [facility] [address] [id number] [place] [address]- 2421 Jul, [facility] [place] [facility] [address] [id number] [place] [address]- 1773 Jul, [facility] [place] [facility] [address] [id number] [place] [address]- 3234 Jul, [facility] [place] [facility] [address] [id number] [place] [address]- 6130 Jul, [facility] [place] [facility] [address] [id number] [place] [address]- 1541 Jul, [facility] [place] [facility] [address] [id number] [place] [address]- 4459 Jul, [facility] [place] [facility] [address] [id number] [place] [address]- 3528 Jul, [facility] [place] [facility] [address] [id number] [place] [address]- 0231 Jun, [facility] [place] [facility] [address] [id number] [place] [address]- 4878 Jun, [facility] [place] [facility] [address] [id number] [place] [address]- 9233 Jun, [facility] [place] [facility] [address] [id number] [place] [address]- 8807 Jun, [facility] [place] [facility] [address] [id number] [place] [address]- 7353 Jun, [facility] [place] [facility] [address] [id number] [place] [address]- 4005 Jun, [facility] [place] [facility] [address] [id number] [place] [address]- 5493 May, [facility] [place] [facility] [address] [id number] [place] [address]- 9447 May, [facility] [place] [facility] [address] [id number] [place] [address]- 1816 May, [facility] [place] [facility] [address] [id number] [place] [address]- 2476 May, [facility] [place] [facility] [address] [id number] [place] [address]- 6671 Apr, [facility] [place] [facility] [address] [id number] [place] [address]- 5972 Apr, [facility] [place] [facility] [address] [id number] [place] [address]- 0433 Apr, [facility] [place] [facility] [address] [id number] [place] [address]- 7024 Apr, [facility] [place] [facility] [address] [id number] [place] [address]- 3137 Apr, [facility] [place] [facility] [address] [id number] [place] [address]- 3018 Apr, [facility] [place] [facility] [address] [facility] [id number] [place] [address]- 1250 Feb, [facility] [place] [facility] [address] [id number] [place] [address]- 9625 Feb, [facility] [place] [facility] [address] [id number] [place] [address]- 1031 Feb, [facility] [place] [facility] [address] [id number] [place] [address]- 0753 Feb, [facility] [place] [facility] [address] [id number] [place] [address]- 2758 Feb, [facility] [place] [facility] [address] [id number] [place] [address]- 9674 Feb, [facility] [place] [facility] [address] [id number] [place] [address]- 7139 Jan, [facility] [place] [facility] [address] [id number] [place] [address]- 1906 Jan, [facility] [place] [facility] [address] [id number] [place] [address]- 3041 Jan, [facility] [place] [facility] [address] [id number] [place] [address]- 8075 Jan, [facility] [place] [facility] [address] [id number] [place] [address]- 5475 Jan, [facility] [place] [facility] [address] [id number] [place] [address]- 5454 Nov, [facility] [place] [facility] [address] [id number] [place] [address]- 9323 Oct, [facility] [place] [facility] [address] [id number] [place] [address]- 5809 Sep, [facility] [place] [facility] [address] [id number] [place] [address]- 4766 Sep, [facility] [place] [facility] [address] [id number] [place] [address]- 7378 August, [facility] [place] [facility] [address] [id number] [place] [address]- 0212 Jul, [facility] [place] [facility] [address] [id number] [place] [address]- 8806 Jul, [facility] [place] [facility] [address] [id number] [place] [address]- 9873 Jun, [facility] [place] [facility] [address] [id number] [place] [address]- 8624 Jun, [facility] [place] [facility] [address] [id number] [place] [address]- 6369 Jun, [facility] [place] [facility] [address] [id number] [place] [address]- 7052 Jun, [facility] [place] [facility] [address] [id number] [place] [address]- 4246 Jun, [facility] [place] [facility] [address] [id number] [place] [address]- 5320 Jun, [facility] [place] [facility] [address] [facility] [id number] [place] [address]- 2831 Apr, [facility] [place] [facility] [address] [id number] [place] [address]- 5647 Mar, [facility] [place] [facility] [address] [id number] [place] [address]- 7400 Mar, [facility] [place] [facility] [address] [id number] [place] [address]- 5843 Feb, [facility] [place] [facility] [address] [id number] [place] [address]- 2231 Feb, [facility] [place] [facility] [address] [id number], [place] [address]- 0553 Feb, [facility] [place] [facility] [address] [id number] [place] [address]- 0432 Feb, [facility] [place] [facility] [address] [facility] [id number] [place] [address]- 9077 Feb, [facility] [place] [facility] [address] [id number], [place] [address]- 7659 Feb, [facility] [place] [facility] [address] [id number], [place] [address]- 8314 Feb, [facility] [place] [facility] [address] [id number] [place] [address]- 3494 Feb, [facility] [place] [facility] [address] [facility] [id number], [place] [address]- 7058 Jan, [facility] [place] [facility] [address] [facility] [id number][place] [address]- 9246 Jan, [facility] [place] [facility] [address] [id number] [place] [address]- 9103 Jan, [facility] [address] [id number] [place] [address]- 5786 28 Dec, 2011 [facility] [address] [id number] [place] [address]- 3486 24 Dec, 2011 [facility] [address] [id number] [place] [address]- 0976 24 Dec, 2011 [facility] [address] [id number] [place] [address]- 6279 18 Dec, 2011 [facility] [address] [id number] [place] [address]- 1374 18 Dec, 2011 [facility] [address] [id number] [place] [address]- 2872 17 Dec, 2011 [facility] [address] [id number] [place] [address]- 0083 Nov, [facility] [address] [id number] [place] [address]- 3095 Oct, [facility] [address] [id number] [place] [address]- 3625 Oct, [facility] [address] [id number] [place] [address]- 2986 Oct, [facility] [address] [id number] [place] [address]- 7238 Sep, [facility] [address] [id number] [place] [address]- 6895 August, [facility] [place] [facility] [address] [id number] [place] [address]- 8638 August, [facility] [place] [facility] [address] [id number] [place] [address]- 3235 Jul, [facility] [address] [id number] [place] [address]- 6314 Jul, [facility] [address] [facility] [id number], [place] [address] 2546 Jul, [facility] [address] [facility] [id number], [place] [address] 2546 Jul, [facility] [address] [facility] [id number], [place] [address] 2546 Jun, [facility] [address] [facility] [id number], [place] [address] 2546 Jun, [facility] [address] [facility] [id number], [place] [address] 2546 Jun, [facility] [address] [facility] [id number], [place] [address] 2546 Jun, [facility] [address], [place] [address]- 2546 Jun, [facility] [address], [place] [address] 2546 Jun, [facility] [address] [address]- 8136 Jun, [facility] [address] [id number], [place] [address]- 4346 Jun, [facility] [address] [id number], [place] [address] 2546 May, [facility] [address] [id number], [place] [address] 2546 Apr, [facility] [address] [facility] [id number], [place] [address] 2546 Feb, IMMUNIZATIONS No Known Immunizations SOCIAL HISTORY Never Assessed REASON FOR VISIT Controlled Med Refill 12/24/2016 PLAN OF CARE VITAL SIGNS MEDICATIONS Medication Instructions Dosage Frequency Start Date End Date Duration Status Xanax 1 MG Orally Twice a day 1 tablet 12h August, 28 days Active Oxycodone HCl 10 MG Orally every 6 hrs 1 tablet as needed 6h Nov, 28 days Active RESULTS No Results PROCEDURES No Known procedures INSTRUCTIONS MEDICATIONS ADMINISTERED No Known Medications MEDICAL (GENERAL) HISTORY Type Description Date Medical History Fainting, Seizures, Epilepsy Medical History Hepatitis C Medical History Back Trouble Surgical History cyst removed 03/2015 Surgical History cyst removal 12/2015
--- OUTSIDE RECORDS SUMMARY | 2018-06-26 17:14 | XMS REPORT ---
Author KATIA Jeter [employer] Address Unknown Phone Unavailable Care Team Providers Care Track Repair Laborer Name Role Phone KATIA COLLAZO CP Unavailable Allergies, Adverse Reactions, Alerts Substance Reaction Event Type N.K.D.A. Info Not Available Non Drug Allergy Problems Problem Type Condition Code Onset Dates Condition Status Assessment Dental examination Z01.20 Active Problem Disturbance of skin sensation 782.0 [...] Instructions Start Date End Date Status Dosage Aciphex [facility] [address]-96 20 mg May 11, 2014 take 1 tablet by Oral route 1 time per day Pt needs f/u appt with Sil[facility] for refills Amoxicillin [facility] [address]-82 500 MG Orally 4 times daily 1 capsule Lamictal [facility] [address]-90 150 mg June 29, 2013 take 1 tablet by Oral route 2 times per day Topamax [facility] [address]-02 100 mg Apr 28, 2013 1 Tablet by Oral route 2 daily Neurontin [facility] [address]-85 600 mg Apr 28, 2013 1 Tablet 3 times per day Noti [facility] [address]-58 5-325 MG Orally every 6 hrs 1 tablet as needed Procedures Procedure Coding System Code Date INTRAORL-PERIAPICAL 1 FILM 92621 CPT-4 D0220 July 22, 2015 Billing Notes on claim CPT-4 EC109 July 22, 2015 LTD ORAL EVALUATION - PROBLEM FOCUS CPT-4 D0140 July 22, 2015 Vital Signs Date/Time: July 22, 2015 Blood Pressure Diastolic 76 mmHg Blood Pressure Systolic 115 mmHg Height 70 in Results No Known Results Summary Purpose [employer] Submission
--- OUTSIDE RECORDS SUMMARY | 2018-06-26 17:14 | XMS REPORT ---
Author Author GERMÁNYOLETTE Organization [facility] Address [address] [place] [address] Care Team Providers Care Engineering Mgr Name Role Phone YOLETTE DUNLAP Unavailable PROBLEMS Type Condition ICD9-CM Code OZB15-YN Code Onset Dates Condition Status SNOMED Code Problem Lumbago with sciatica, right side M54.41 Active 671002019 Problem Seizures R56.9 Active 78256763 Problem Other chronic pain G89.29 Active 75400287 Problem Neuropathy G62.9 Active 915342785 Problem Anxiety F41.9 Active 80637449 Problem Gastroenteritis K52.9 Active 32768356 Problem Other chronic pain G89.29 Active 39222408 Problem Simple chronic bronchitis J41.0 Active 45282035 Problem Cigarette nicotine dependence without complication F17.210 Active 45287763 ALLERGIES No Information ENCOUNTERS Encounter Location Date Diagnosis [place] [address] [address] Oct, [place] [address] [address]- [address] Sep, Seizures R56.9 ; Neuropathy G62.9 and Tinea pedis of both feet B35.3 [place] [address] [address]- [address] 15 Sep, 2017 [place] [address] [address]- 6131 Sep, Seizures R56.9 [place] [address] [address]- 7116 August, [place] [address] [address]- 609[address] Jun, [place] [address] [address]- 2546 Apr, Lumbar neuritis M54.16 [facility] [address] [place] [id number] [place] [address]644- 4036 16 Apr, 2017 [facility] [address] [place] [id number] [place] [address] 41768 2546 Apr, Lumbar neuritis M54.16 [facility] [address] [place] [id number] [place] [address] 86589 2546 Mar, Lumbar neuritis M54.16 [facility] [address] [place] [id number] [place] [address] 11614 2546 Feb, Lumbar neuritis M54.16 [facility] [address] [place] [id number] [place] [address] 07537- 5916 Feb, Anxiety F41.9 and Seizures R56.9 [facility] [address] [address]- 2886 Feb, [facility] [address] [place] [id number] [place] [address] 93298 2542 Jan, Lumbar neuritis M54.16 [facility] [address] [place] [id number] [place] [address] 07658 2546 Jan, Seizures R56.9 [facility] [address] [place] [id number] [place] [address] 72042 2546 Jan, [facility] [address] [place] [id number] [place] [address] 47126 2546 Dec, Lumbar neuritis M54.16 [facility] [address] [place] [id number] [place] [address] 75727 2546 Dec, [facility] [address] [place] [id number] [place] [address] 73318 2546 Nov, Lumbar neuritis M54.16 [facility] [address] [place] [id number] [place] [address] 02114 2546 Nov, [facility] [address] [place] [id number] [place] [address] 86750- 5206 Nov, [place] [address] 04532- 8900 Nov, Lumbar neuritis M54.16 [place] [address] [place] [id number] [place] [address] 89658- 6694 Oct, Lumbar neuritis M54.16 [place] [address] 98367- 6599 Sep, Lumbago with sciatica, right side M54.41 and Seizures R56.9 [place] [address] 06833- 6019 Sep, Lumbar neuritis M54.16 [place] [address] 46571- 3686 August, Lumbar neuritis M54.16 and Anxiety F41.9 [place] [address] 81126- 4389 August, Simple chronic bronchitis J41.0 ; Hemoptysis R04.2 and Cigarette nicotine dependence without complication F17.210 [place] [address] [place] [id number] [place] [address] 64582- 6420 Jul, Lumbago with sciatica, right side M54.41 [place] [address] [place] [id number] [place] [address] 20466- 3171 Jul, Lumbago with sciatica, right side M54.41 [place] [address] [place] [id number] [place] [address] 82931- 4947 Jun, Lumbago with sciatica, right side M54.41 [place] [address] [place] [id number] [place] [address] 34155- 4808 Jun, Lumbago with sciatica, right side M54.41 [place] [address] [place] [id number] [place] [address] 66239- 3623 Jun, Lumbago with sciatica, right side M54.[address] [facility] [address] [place] [id number] [place] [address] 72506 -3490 Jun, Gastroenteritis K52.9 [facility] [address] [place] [id number] [place] [address] 88048- 4428 May, Seizures R56.9 ; Tobacco use Z72.0 ; Tobacco abuse counseling Z71.6 ; Tooth abscess K04.7 ; Pain in right leg M79.604 ; Pain of left leg M79.605 ; Other chronic pain G89.29 and Neuropathy G62.9 [place] [address] 41844- 5671 May, Lumbago with sciatica, right side M54.41 [place] [address] 65441- 1152 Apr, Lumbago with sciatica, right side M54.41 [place] [address] 65613- 6116 Mar, Lumbago with sciatica, right side M54.41 [place] [address] 06618- 5803 Mar, [place] [address] 55915- 7041 Mar, Lumbago with sciatica, right side M54.41 [facility] [address] [place] [id number] [place] [address] 20752- 2532 Feb, Lumbago with sciatica, right side M54.41 and Other chronic pain G89.29 [place] [address] 05178- 1738 Feb, [place] [address] [place] [id number] [place] [address] 79393- 7476 Nov, Dental caries K02.9 [facility] [address] [place] [address]- 1754 05 Oct, 2015 Dental examination Z01.20 [facility] [address] [id number] [place] [address]- 0461 26 Jul, 2015 Dental examination Z01.20 [facility] [address] [id number] [place] [address]- 2586 19 Jul, 2015 Dental examination Z01.20 and Dental caries K02.9 [facility] [address] [id number] [place] [address]- 3532 Jun, Dental examination Z01.20 [facility] [address] [id number] [place] [address]- 5608 Jul, [facility] [address] [id number] [place] [address]- 9269 Jul, [facility] [address] [id number] [place] [address]- 4747 Apr, [facility] [address] [id number] [address]- 9227 Apr, [facility] [address] [id number] [place] [address]- 7790 Mar, [facility] [address] [id number], [place] [address]- 6043 Mar, [facility] [address] [id number] [place] [address]- 7905 Nov, [facility] [address] [id number], [place] [address]- 2480 Nov, [facility] [address] [id number] [place] [address]- 3538 Nov, [facility] [address] [id number], [place] [address]- 6827 Nov, [facility] [address] [id number], [place] [address]- 8681 Oct, [facility] [place] [facility] [address] [id number] [place] [address]- 7983 Oct, [facility] [place] [facility] [address] [id number] [place] [address]- 9246 Sep, [facility] [place] [facility] [address] [id number] [place] [address]- 0903 Sep, [facility] [place] [facility] [address] [id number] [place] [address]- 9688 August, [facility] [place] [facility] [address] [id number] [place] [address]- 2577 August, [facility] [place] [facility] [address] [id number] [place] [address]- 7068 Jul, [facility] [place] [facility] [address] [id number] [place] [address]- 6308 Jul, [facility] [place] [facility] [address] [id number] [place] [address]- 5555 Jul, [facility] [place] [facility] [address] [id number] [place] [address]- 8938 Jul, [facility] [place] [facility] [address] [id number] [place] [address]- 3020 Jul, [facility] [place] [facility] [address] [id number] [place] [address]- 4938 Jul, [facility] [place] [facility] [address] [id number] [place] [address]- 4643 Jul, [facility] [place] [facility] [address] [id number] [place] [address]- 8844 Jul, [facility] [place] [facility] [address] [id number] [place] [address]- 6725 Jul, [facility] [place] [facility] [address] [id number] [place] [address]- 9434 Jul, [facility] [place] [facility] [address] [id number] [place] [address]- 9101 Jun, [facility] [place] [facility] [address] [id number] [place] [address]- 4664 Jun, [facility] [place] [facility] [address] [id number] [place] [address]- 2455 Jun, [facility] [place] [facility] [address] [facility] [id number] [place] [address]- 1239 Jun, [facility] [place] [facility] [address] [id number] [place] [address]- 7809 Jun, [facility] [place] [facility] [address] [id number] [place] [address]- 4855 Jun, [facility] [place] [facility] [address] [id number] [place] [address]- 0251 May, [facility] [place] [facility] [address] [id number] [place] [address]- 2441 May, [facility] [place] [facility] [address] [id number] [place] [address]- 0426 May, [facility] [place] [facility] [address] [id number] [place] [address]- 3843 May, [facility] [place] [facility] [address] [facility] [id number] [place] [address]- 2786 Apr, [facility] [place] [facility] [address] [id number] [place] [address]- 5897 Apr, [facility] [place] [facility] [address] [id number] [place] [address]- 5658 Apr, [facility] [place] [facility] [address] [id number] [place] [address]- 5414 Apr, [facility] [place] [facility] [address] [id number] [place] [address]- 7264 Apr, [facility] [place] [facility] [address] [facility] [id number] [place] [address]- 7560 Apr, [facility] [place] [facility] [address] [id number] [place] [address]- 4325 Feb, [facility] [place] [facility] [address] [id number] [place] [address]- 4190 Feb, [facility] [place] [facility] [address] [id number] [place] [address] 2546 Feb, [facility] [place] [facility] [address] [id number] [place] [address]- 2171 Feb, [facility] [place] [facility] [address] [id number] [place] [address]- 0471 Feb, [facility] [place] [facility] [address] [id number] [place] [address]- 6119 Feb, [facility] [place] [facility] [address] [id number] [place] [address]- 3831 Jan, [facility] [place] [facility] [address] [id number] [place] [address]- 8520 Jan, [facility] [place] [facility] [address] [id number] [place] [address]- 3293 Jan, [facility] [place] [facility] [address] [id number] [place] [address]- 7218 Jan, [facility] [place] [facility] [address] [id number] [place] [address]- 7984 Jan, [facility] [place] [facility] [address] [id number] [place] [address]- 4210 Nov, [facility] [place] [facility] [address] [id number] [place] [address]- 2544 Oct, [facility] [place] [facility] [address] [id number] [place] [address]- 6676 Sep, [facility] [place] [facility] [address] [id number] [place] [address]- 2546 Sep, [facility] [place] [facility] [address] [id number] [place] [address]- 8963 August, [facility] [address] [id number] [place] [address]- 4282 Jul, [facility] [place] [facility] [address] [id number] [place] [address]- 2633 Jul, [facility] [place] [facility] [address] [id number] [place] [address]- 3609 Jun, [facility] [place] [facility] [address] [id number] [place] [address]- 5075 Jun, [facility] [place] [facility] [address] [id number] [place] [address]- 3754 Jun, [facility] [place] [facility] [address] [id number] [place] [address]- 4310 Jun, [facility] [place] [facility] [address] [id number] [place] [address]- 9175 Jun, [facility] [place] [facility] [address] [id number] [place] [address]- 7942 05 Jun, 2012 [facility] [place] [facility] [address] [id number] [place] [address]- 4116 Apr, [facility] [place] [facility] [address] [id number] [place] [address]- 1422 Mar, [facility] [place] [facility] [address] [id number] [place] [address]- 8079 18 Mar, 2012 [facility] [place] [facility] [address] [id number], [place] [address]- 1651 15 Feb, 2012 [facility] [place] [facility] [address] [id number] [place] [address]- 2472 15 Feb, 2012 [facility] [place] [facility] [address] [id number] [place] [address]- 8250 15 Feb, 2012 [facility] [place] [facility] [address] [id number] [place] [address]- 5940 15 Feb, 2012 [facility] [place] [facility] [address] [id number] [place] [address]- 2069 Feb, [facility] [place] [facility] [address] [id number] [place] [address]- 0793 Feb, [facility] [place] [facility] [address] [id number] [place] [address]- 6386 Feb, [facility] [place] [facility] [address] [id number] [place] [address]- 6315 Feb, [facility] [place] [facility] [address] [id number] [place] [address]- 6485 Jan, [facility] [place] [facility] [address] [id number] [place] 6831 Jan, [facility] [place] [facility] [address] [id number] [place] [address]- 0301 Jan, [facility] [place] [facility] [address] [id number] [place] [address]- 2863 28 Dec, 2011 [facility] [place] [facility] [address] [id number] [place] [address]- 2280 24 Dec, 2011 [facility] [place] [facility] [address] [id number] [place] [address]- 7394 24 Dec, 2011 [facility] [place] [facility] [address] [id number] [place] [address]- 5920 18 Dec, 2011 [facility] [place] [facility] [address] [id number] [place] [address]- 3832 18 Dec, 2011 [facility] [place] [facility] [address] [id number] [place] [address]- 5681 17 Dec, 2011 [facility] [place] [facility] [address] [id number] [place] [address]- 6432 Nov, [facility] [place] [facility] [address] [id number] [place] [address]- 1786 Oct, [facility] [place] [facility] [address] [id number] [place] [address]- 5136 Oct, [facility] [place] [facility] [address] [id number] [place] [address]- 0002 Oct, [facility] [place] [facility] [address] [id number] [place] [address]- 0742 Sep, [facility] [place] [facility] [address] [id number] [place] [address]- 4983 August, [facility] [place] [facility] [address] [id number] [place] [address]- 6351 August, [facility] [place] [facility] [address] [id number] [place] [address]- 2694 Jul, [facility] [place] [facility] [address] [id number] [place] [address]- 5952 Jul, [facility] [place] [facility] [address] [id number] [place] [address]- 2175 Jul, [facility] [place] [facility] [address] [id number] [place] [address]- 3542 Jul, [facility] [place] [facility] [address] [id number] [place] [address]- 1366 Jun, [facility] [place] [facility] [address] [id number] [place] [address]- 7240 Jun, [facility] [place] [facility] [address] [id number] [place] [address]- 8185 Jun, [facility] [place] [facility] [address] [id number] [place] [address]- 7772 Jun, [facility] [place] [facility] [address] [id number] [place] [address]- 9821 Jun, [facility] [place] [facility] [address] [id number] [place] [address]- 1597 Jun, [facility] [place] [facility] [address] [id number] [place] [address]- 0363 Jun, [facility] [place] [facility] [address] [id number], [place] [address]- 6726 Jun, [facility] [address] [facility] [id number] [place] [address]- 2546 May, [facility] [address] [facility] [id number], [place] [address]- 2546 Apr, [facility] [address] [facility] [id number], [place] [address]- 2546 Feb, IMMUNIZATIONS No Known Immunizations SOCIAL HISTORY Never Assessed REASON FOR VISIT Controlled Med Refill 05/11/17/ PLAN OF CARE VITAL SIGNS MEDICATIONS Medication Instructions Dosage Frequency Start Date End Date Duration Status Oxycodone HCl 10 MG Orally every 6 hrs 1 tablet as needed 6h 16 Apr, 2017 28 days Active Xanax 1 MG [...]
--- OUTSIDE RECORDS SUMMARY | 2018-06-26 17:14 | XMS REPORT ---
Author Author YOLETTE DUNLAP [facility] Address [address] [place] [address] Care Team Providers Care Row Boss Hoeing Name Role Phone YOLETTE DUNLAP Unavailable PROBLEMS Type Condition ICD9-CM Code KZU34-WL Code Onset Dates Condition Status SNOMED Code Problem Encounter for long-term (current) use of other medications V58.69 Active 442904706 Problem Disturbance of skin sensation 782.0 Active 746637383 Problem Generalized osteoarthrosis, unspecified site 715.00 Active 708007545 Problem Unspecified viral hepatitis C without hepatic coma 070.70 Active 02324836 Problem Acute sinusitis, unspecified 461.9 Active 32325717 Problem Disturbance of salivary secretion 527.7 Active 23354422 Problem Other B-complex deficiencies 266.2 Active 633187482 Problem Nondependent cannabis abuse, unspecified 305.20 Active 587665423 Problem Other malaise and fatigue 780.79 Active 518084864 Problem Dysuria 788.1 Active 13957842 Problem Impotence of 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.84 Active 066054039 Problem Nondependent alcohol abuse, 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 Active 405991579 Problem Dermatophytosis of nail 110.1 Active 824785679 Problem Other specified pre-operative examination V72.83 Active 963096783 Problem Lumbago with sciatica, right side M54.41 Active 917234641 Problem Other chronic pain G89.29 Active 14448144 Problem Nonspecific elevation of levels of transaminase or lactic acid dehydrogenase (LDH) 790.4 Active 700478518 Problem Other, mixed, or unspecified nondependent drug abuse, 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81 Active 193899301 Problem Unspecified myalgia and myositis 729.1 Active 040637686 Problem Pain in joint, site unspecified 719.40 Active 00659417 Problem Combinations of drug dependence excluding opioid type drug, unspecified abuse 304.80 Active 759500316 Problem Unspecified episodic mood disorder 296.90 Active 590766810 ALLERGIES Unknown Allergies SOCIAL HISTORY No smoking Hx information available PLAN OF CARE VITAL SIGNS MEDICATIONS Medication Instructions Dosage Frequency Start Date End Date Duration Status Aciphex 20 MG Orally Once a day 1 tablet 24h Apr, 30 days Active Lamictal 150 MG Orally 2 times a day 1 tablet 12h 06 Jun, 2013 30 days Active RESULTS No Results PROCEDURES No Known procedures IMMUNIZATIONS No Known Immunizations
--- OUTSIDE RECORDS SUMMARY | 2018-06-26 17:14 | XMS REPORT ---
Author Author YOLETTE DUNLAP Organization [facility] Address [address] [place] [address] Care Team Providers Care Registered Nurse Name Role Phone YOLETTE DUNLAP Unavailable PROBLEMS Type Condition ICD9-CM Code HGR62-ZX Code Onset Dates Condition Status SNOMED Code Problem Other chronic pain G89.29 Active 46372105 Problem Lumbago with sciatica, right side M54.41 Active 355336769 Problem Anxiety F41.9 Active 18119053 Problem Cigarette nicotine dependence without complication F17.210 Active 19762641 Problem Other chronic pain G89.29 Active 72190954 Problem Seizures R56.9 Active 06177000 Problem Simple chronic bronchitis J41.0 Active 11590819 Problem Gastroenteritis K52.9 Active 26974482 ALLERGIES No Information ENCOUNTERS Encounter Location Date Diagnosis [facility] [id number] [place] [address] 37906- 5027 Jul, [facility] [address] 42057- 2180 Jun, [facility] [id number] [place] [address] 52107- 0732 Apr, Lumbar neuritis M54.16 [facility] [id number] [place] [address] 57421- 1890 Apr, [facility] [id number] [place] [address] 13749- 1102 Apr, Lumbar neuritis M54.16 [facility] [address] 45881- 2605 Mar, Lumbar neuritis M54.16 [facility] [id number] [place] [address] 43293- 4828 Feb, Lumbar neuritis M54.16 [facility] [id number] [place] [address] 78409 2546 Feb, Anxiety F41.9 and Seizures R56.9 [facility] [id number] [place] [address] 51846 2546 Feb, [facility] [id number] [place] [address] 17197 2546 Jan, Lumbar neuritis M54.16 [facility] [id number] [place] [address] 49867 2546 Jan, Seizures R56.9 [facility] [address] 99199 2546 Jan, [facility] [id number] [place] [address] 35294 2546 Dec, Lumbar neuritis M54.16 [facility] [id number] [place] [address] 69762 2546 Dec, [facility] [id number] [place] [address] 25593 2546 Nov, Lumbar neuritis M54.16 [facility] [id number] [place] [address] 89062 2546 Nov, [facility] [id number] [place] [address] 35231 2546 Nov, [facility] [id number] [place] [address] 66711 2546 Nov, Lumbar neuritis M54.16 [facility] [id number] [place] [address] 33156 2546 Oct, Lumbar neuritis M54.16 [facility] [id number] [place] [address] 87529 2546 Sep, Lumbago with sciatica, right side M54.41 and Seizures R56.9 [facility] [address] 33553- 7591 07 Sep, 2016 Lumbar neuritis M54.16 [place] [address] 75147- 8788 August, Lumbar neuritis M54.16 and Anxiety F41.9 [place] [address] 24568- 6346 August, Simple chronic bronchitis J41.0 ; Hemoptysis R04.2 and Cigarette nicotine dependence without complication F17.210 [place] [address] 34700- 9096 Jul, Lumbago with sciatica, right side M54.41 [place] [address] 71013- 1109 Jul, Lumbago with sciatica, right side M54.41 [place] [address] 29833- 8227 Jun, Lumbago with sciatica, right side M54.41 [place] [address] 67705- 2816 Jun, Lumbago with sciatica, right side M54.41 [place] [address] 73612- 2165 Jun, Lumbago with sciatica, right side M54.41 [facility] [address] 66362 -1795 Jun, Gastroenteritis K52.9 [place] [address] 53733- 8428 May, Seizures R56.9 ; Tobacco use Z72.0 ; Tobacco abuse counseling Z71.6 ; Tooth abscess K04.7 ; Pain in right leg M79.604 ; Pain of left leg M79.605 ; Other chronic pain G89.29 and Neuropathy G62.9 [place] [address] [place] [address]- 3559 May, Lumbago with sciatica, right side M54.41 [facility] [id number] [place] [address] 89889- 5516 Apr, Lumbago with sciatica, right side M54.41 [facility] [id number] [place] [address] 56219- 8206 Mar, Lumbago with sciatica, right side M54.41 [facility] [id number] [place] [address] 66309- 4011 Mar, [facility] [id number] [place] [address] 64661- 1628 Mar, Lumbago with sciatica, right side M54.41 [facility] [id number] [place] [address] 69809- 8311 Feb, Lumbago with sciatica, right side M54.41 and Other chronic pain G89.29 [facility] [id number] [place] [address] 35990- 8336 Feb, [facility] [id number] [place] [address] 04857- 1667 Nov, Dental caries K02.9 [facility] [id number] [place] [address] 36490- 5313 Oct, Dental examination Z01.20 [facility] [id number] [place] [address] 31326- 3309 Jul, Dental examination Z01.20 [facility] [id number] [place] [address] 43978- 6944 Jul, Dental examination Z01.20 and Dental caries K02.9 [facility] [id number] [place] [address] 62339- 1623 Jun, Dental examination Z01.20 [facility] [id number] [place] [address] 48103- 9735 Jul, [facility] [place] [facility] [address] [id number] [place] [address]- 9261 Jul, [facility] [place] [facility] [address] [id number] [place] [address]- 3080 Apr, [facility] [place] [facility] [address] [id number] [place] [address]- 4874 Apr, [facility] [place] [facility] [address] [id number] [place] [address]- 1121 Mar, [facility] [place] [facility] [address] [id number] [place] [address]- 7116 Mar, [facility] [place] [facility] [address] [id number] [place] [address]- 9720 Nov, [facility] [place] [facility] [address] [id number] [place] [address]- 8228 Nov, [facility] [place] [facility] [address] [id number] [place] [address]- 6507 Nov, [facility] [place] [facility] [address] [id number] [place] [address]- 8370 Nov, [facility] [place] [facility] [address] [id number] [place] [address]- 4444 Oct, [facility] [place] [facility] [address] [id number] [place] [address]- 9754 Oct, [facility] [place] [facility] [address] [id number] [place] [address]- 6119 Sep, [facility] [place] [facility] [address] [id number] [place] [address]- 5052 Sep, [facility] [place] [facility] [address] [id number] [place] [address]- 2518 August, [facility] [place] [facility] [address] [id number] [place] [address]- 6957 August, [facility] [place] [facility] [address] [id number] [place] [address]- 3480 29 Jul, 2013 [facility] [place] [facility] [address] [id number] [place] [address]- 0036 29 Jul, 2013 [facility] [place] [facility] [address] [id number] [place] [address]- 5796 Jul, [facility] [place] [facility] [address] [id number] [place] [address]- 7116 Jul, [facility] [place] [facility] [address] [id number] [place] [address]- 7075 Jul, [facility] [place] [facility] [address] [id number] [place] [address]- 8442 Jul, [facility] [place] [facility] [address] [id number] [place] [address]- 8080 Jul, [facility] [place] [facility] [address] [id number] [place] [address]- 7964 Jul, [facility] [place] [facility] [address] [id number] [place] [address]- 5981 Jul, [facility] [place] [facility] [address] [id number] [place] [address]- 4246 Jul, [facility] [place] [facility] [address] [id number] [place] [address]- 1209 Jun, [facility] [place] [facility] [address] [id number] [place] [address]- 6246 Jun, [facility] [place] [facility] [address] [id number] [place] [address]- 8575 10 Jun, 2013 [facility] [place] [facility] [address] [id number] [place] [address]- 3875 08 Jun, 2013 [facility] [place] [facility] [address] [id number] [place] [address]- 3946 Jun, [facility] [place] [facility] [address] [id number] [place] [address]- 2798 Jun, [facility] [place] [facility] [address] [id number] [place] [address]- 9226 May, [facility] [place] [facility] [address] [id number] [place] [address]- 3573 May, [facility] [place] [facility] [address] [id number] [place] [address]- 0877 May, [facility] [place] [facility] [address] [id number] [place] [address]- 0978 May, [facility] [place] [facility] [address] [id number] [place] [address]- 3577 Apr, [facility] [place] [facility] [address] [id number] [place] [address]- 1837 Apr, [facility] [place] [facility] [address] [id number] [place] [address]- 8618 Apr, [facility] [place] [facility] [address] [id number] [place] [address]- 6532 Apr, [facility] [place] [facility] [address] [id number] [place] [address]- 8848 Apr, [facility] [place] [facility] [address] [id number] [place] [address]- 4730 Apr, [facility] [place] [facility] [address] [id number] [place] [address]- 3166 Feb, [facility] [place] [facility] [address] [id number] [place] [address]- 1152 Feb, [facility] [place] [facility] [address] [id number] [place] [address]- 5266 Feb, [facility] [place] [facility] [address] [id number] [place] [address]- 5799 Feb, [facility] [place] [facility] [address] [id number] [place] [address]- 4213 Feb, [facility] [place] [facility] [address] [id number] [place] [address]- 3795 08 Feb, 2013 [facility] [address] [id number] [place] [address]- 9522 31 Jan, 2013 [facility] [address] [id number] [place] [address]- 3108 Jan, [facility] [address] [id number] [place] [address]- 8504 Jan, [facility] [address] [id number] [place] [address]- 3583 Jan, [facility] [address] [id number] [place] [address]- 1171 Jan, [facility] [address] [id number] [place] [address]- 9386 Nov, [facility] [address] [id number] [place] [address]- 6247 Oct, [facility] [address] [id number] [place] [address]- 2876 Sep, [facility] [address] [id number] [place] [address]- 2412 Sep, [facility] [address] [id number] [place] [address]- 8536 August, [facility] [address] [id number] [place] [address]- 6394 Jul, [facility] [place] [facility] [address] [id number] [place] [address]- 6250 Jul, [facility] [place] [facility] [address] [id number] [place] [address]- 6765 Jun, [facility] [place] [facility] [address] [id number] [place] [address] 2540 Jun, [facility] [place] [facility] [address] [id number] [place] [address]- 2240 Jun, [facility] [place] [facility] [address] [id number] [place] [address]- 3025 Jun, [facility] [place] [facility] [address] [id number] [place] [address]- 3222 Jun, [facility] [place] [facility] [address] [id number] [place] [address]- 2242 05 Jun, 2012 [facility] [place] [facility] [address] [id number] [place] [address]- 3282 Apr, [facility] [place] [facility] [address] [id number] [place] [address]- 0626 Mar, [facility] [place] [facility] [address] [id number] [place] [address]- 0290 Mar, [facility] [place] [facility] [address] [facility] [id number] [place] [address]- 0900 Feb, [facility] [place] [facility] [address] [id number] [place] [address]- 7592 Feb, [facility] [place] [facility] [address] [id number] [place] [address]- 2256 Feb, [facility] [place] [facility] [address] [facility] [id number] [place] [address]- 7326 Feb, [facility] [place] [facility] [address] [facility] [id number] [place] [address]- 5432 Feb, [facility] [place] [facility] [address] [id number], [place] [address]- 9862 Feb, [facility] [place] [facility] [address] [id number] [place] [address]- 9046 Feb, [facility] [place] [facility] [address] [id number] [place] [address]- 4081 Feb, [facility] [place] [facility] [address] [facility] [id number]- 3318 05 Jan, 2012 [facility] [place] [facility] [address] [id number], [place] [address]- 6759 Jan, [facility] [place] [facility] [address] [id number] [place] 8045 Jan, [facility] [place] [facility] [address] [id number] [place] [address]- 8289 28 Dec, 2011 [facility] [place] [facility] [address] [id number] [place] [address]- 6996 24 Dec, 2011 [facility] [place] [facility] [address] [id number] [place] [address]- 1788 24 Dec, 2011 [facility] [place] [facility] [address] [id number] [place] [address]- 4887 18 Dec, 2011 [facility] [place] [facility] [address] [id number] [place] [address]- 9131 Dec, [facility] [place] [facility] [address] [id number] [place] [address]- 5873 17 Dec, 2011 [facility] [place] [facility] [address] [id number] [place] [address]- 1640 Nov, [facility] [place] [facility] [address] [id number] [place] [address]- 6081 Oct, [facility] [place] [facility] [address] [id number] [place] [address]- 7307 Oct, [facility] [place] [facility] [address] [id number] [place] [address]- 3918 Oct, [facility] [place] [facility] [address] [id number] [place] [address]- 4512 Sep, [facility] [place] [facility] [address] [id number] [place] [address]- 2059 August, [facility] [place] [facility] [address] [id number] [place] [address]- 5415 August, [facility] [place] [facility] [address] [id number] [place] [address]- 4585 Jul, [facility] [place] [facility] [address] [id number], [place] [address]- 0896 Jul, [facility] [address] [place] [address]- 6026 Jul, [facility] [address] [place] [address] 2546 Jul, [facility] [address] [place] [address]- 6318 Jun, [facility] [address] [place] [address]- 1315 Jun, [facility] [address] [place] [address]- 2112 Jun, [facility] [address] [place] [address]- 3299 Jun, [facility] [address] [place] [address]- 8502 Jun, [facility] [address] [place] [address]- 8253 Jun, [facility] [address] [place] [address]- 3111 Jun, [facility] [address] [place] [address]- 0488 Jun, [facility] [id number] [address]- 1746 May, [facility] [id number] [address]- 1690 Apr, [facility] [address] [place] [address]- 0027 Feb, IMMUNIZATIONS No Known Immunizations SOCIAL HISTORY Never Assessed REASON FOR VISIT Controlled Med Refill 11/26/16 PLAN OF CARE VITAL SIGNS MEDICATIONS Medication Instructions Dosage Frequency Start Date End Date Duration Status Oxycodone HCl 10 MG Orally every 6 hrs 1 tablet as needed 6h Nov, 28 days Active Xanax 1 MG Orally [...]
--- OUTSIDE RECORDS SUMMARY | 2018-06-26 17:15 | XMS REPORT ---
Author Author GERMÁNYOLETTE Organization [facility] Address [address] [place] [address] Care Team Providers Care [employer] Board Certified Orthotist Name Role Phone YOLETTE DUNLAP Unavailable PROBLEMS Type Condition ICD9-CM Code WEI25-XM Code Onset Dates Condition Status SNOMED Code Problem Lumbago with sciatica, right side M54.41 Active 874123068 Problem Seizures R56.9 Active 84713132 Problem Other chronic pain G89.29 Active 40151122 Problem Neuropathy G62.9 Active 181506903 Problem Anxiety F41.9 Active 37453117 Problem Gastroenteritis K52.9 Active 76558240 Problem Other chronic pain G89.29 Active 55419536 Problem Simple chronic bronchitis J41.0 Active 00006198 Problem Cigarette nicotine dependence without complication F17.210 Active 76505605 ALLERGIES No Information ENCOUNTERS Encounter Location Date Diagnosis [place] [address] [address] Oct, [place] [address] [address]- [address] Sep, Seizures R56.9 ; Neuropathy G62.9 and Tinea pedis of both feet B35.3 [place] [address] [address]- [address] 15 Sep, 2017 [place] [address] [address]- 9192 Sep, Seizures R56.9 [place] [address] 9[address]- 7430 August, [place] [address] 260[address]- 9338 Jun, [place] [address] 17258- 2546 Apr, Lumbar neuritis M54.16 [facility] [address] [place] [id number] [place] [address] 75865- 1896 16 Apr, 2017 [facility] [address] [place] [id number] [place] [address] 28875 2546 Apr, Lumbar neuritis M54.16 [facility] [address] [place] [id number] [place] [address] 51414 2546 Mar, Lumbar neuritis M54.16 [facility] [address] [place] [address] [id number] [place] [address] 15508 2546 Feb, Lumbar neuritis M54.16 [facility] [address] [place] [address] [id number] [place] [address] 23896- 8376 Feb, Anxiety F41.9 and Seizures R56.9 [facility] [address] [address]- [address] Feb, [facility] [address] [place] [id number] [place] [address] 53447 2545 Jan, Lumbar neuritis M54.16 [facility] [address] [place] [id number] [place] [address] 89874 2546 Jan, Seizures R56.9 [facility] [address] [place] [id number] [place] [address] 50637 2546 Jan, [facility] [address] [place] [id number] [place] [address] 25362 2546 Dec, Lumbar neuritis M54.16 [facility] [address] [place] [id number] [place] [address] 46548 2546 Dec, [facility] [address] [place] [id number] [place] [address] 41314 2546 Nov, Lumbar neuritis M54.16 [facility] [address] [place] [address] [id number] [place] [address] 52065 2546 Nov, [facility] [address] [place] [id number] [place] [address] 79445- 8930 Nov, [place] [address] 26111- 5450 Nov, Lumbar neuritis M54.16 [place] [address] [place] [id number] [place] [address] 27196- 9050 Oct, Lumbar neuritis M54.16 [place] [address] 77029- 6260 Sep, Lumbago with sciatica, right side M54.41 and Seizures R56.9 [place] [address] 73625- 6592 Sep, Lumbar neuritis M54.16 [place] [address] 45011- 1191 August, Lumbar neuritis M54.16 and Anxiety F41.9 [place] [address] 93751- 1522 August, Simple chronic bronchitis J41.0 ; Hemoptysis R04.2 and Cigarette nicotine dependence without complication F17.210 [place] [address] [place] [id number] [place] [address] 06489- 1602 Jul, Lumbago with sciatica, right side M54.41 [place] [address] [place] [id number] [place] [address] 38031- 4269 Jul, Lumbago with sciatica, right side M54.41 [place] [address] [place] [id number] [place] [address] 95851- 8362 Jun, Lumbago with sciatica, right side M54.41 [place] [address] [place] [id number] [place] [address] 60093- 7655 Jun, Lumbago with sciatica, right side M54.41 [place] [address] [place] [id number] [place] [address] 05014- 7494 Jun, Lumbago with sciatica, right side M54.[address] [facility] [address] [place] [id number] [place] [address] 92954 -6838 Jun, Gastroenteritis K52.9 [facility] [address] [place] [id number] [place] [address] 92951- 0329 May, Seizures R56.9 ; Tobacco use Z72.0 ; Tobacco abuse counseling Z71.6 ; Tooth abscess K04.7 ; Pain in right leg M79.604 ; Pain of left leg M79.605 ; Other chronic pain G89.29 and Neuropathy G62.9 [place] [address] 25835- 1085 May, Lumbago with sciatica, right side M54.41 [place] [address] 59970- 8627 Apr, Lumbago with sciatica, right side M54.41 [place] [address] 34580- 4427 Mar, Lumbago with sciatica, right side M54.41 [place] [address] 18964- 8915 Mar, [place] [address] 92246- 3791 Mar, Lumbago with sciatica, right side M54.41 [facility] [address] [place] [id number] [place] [address] 54670- 0629 Feb, Lumbago with sciatica, right side M54.41 and Other chronic pain G89.29 [place] [address] 81560- 8428 Feb, [place] [address] [place] [id number] [place] [address] 04460- 1573 Nov, Dental caries K02.9 [facility] [address] [place] [address]- 3486 05 Oct, 2015 Dental examination Z01.20 [facility] [address] [id number] [place] [address]- 5653 26 Jul, 2015 Dental examination Z01.20 [facility] [address] [id number] [place] [address]- 8146 19 Jul, 2015 Dental examination Z01.20 and Dental caries K02.9 [facility] [address] [id number] [place] [address]- 5020 Jun, Dental examination Z01.20 [facility] [address] [id number] [place] [address]- 7411 Jul, [facility] [address] [id number] [place] [address]- 7068 Jul, [facility] [address] [id number] [place] [address]- 0219 Apr, [facility] [address] [id number], [place] [address]- 9523 Apr, [facility] [address] [id number] [place] [address]- 9307 Mar, [facility] [address] [id number], [place] [address]- 5366 Mar, [facility] [address] [id number] [place] [address]- 6368 Nov, [facility] [address] [id number], [place] [address]- 2248 Nov, [facility] [address] [id number] [place] [address]- 1603 Nov, [facility] [address] [id number], [place] [address]- 6523 Nov, [facility] [address] [id number], [place] [address]- 0608 Oct, [facility] [place] [facility] [address] [id number] [place] [address]- 8301 Oct, [facility] [place] [facility] [address] [id number] [place] [address]- 4616 Sep, [facility] [place] [facility] [address] [id number] [place] [address]- 2941 Sep, [facility] [place] [facility] [address] [id number] [place] [address]- 4943 August, [facility] [place] [facility] [address] [id number] [place] [address]- 0586 August, [facility] [place] [facility] [address] [id number] [place] [address]- 1413 Jul, [facility] [place] [facility] [address] [id number] [place] [address]- 9676 Jul, [facility] [place] [facility] [address] [id number] [place] [address]- 0014 Jul, [facility] [place] [facility] [address] [id number] [place] [address]- 4625 Jul, [facility] [place] [facility] [address] [id number] [place] [address]- 6144 Jul, [facility] [place] [facility] [address] [id number] [place] [address]- 6468 Jul, [facility] [place] [facility] [address] [id number] [place] [address]- 2343 Jul, [facility] [place] [facility] [address] [id number] [place] [address]- 8980 Jul, [facility] [place] [facility] [address] [id number] [place] [address]- 3897 Jul, [facility] [place] [facility] [address] [id number] [place] [address]- 4326 Jul, [facility] [place] [facility] [address] [id number] [place] [address]- 6105 Jun, [facility] [place] [facility] [address] [id number] [place] [address]- 9054 Jun, [facility] [place] [facility] [address] [id number] [place] [address]- 3418 Jun, [facility] [place] [facility] [address] [id number] [place] [address]- 3067 Jun, [facility] [place] [facility] [address] [id number] [place] [address]- 8533 Jun, [facility] [place] [facility] [address] [id number] [place] [address]- 0353 Jun, [facility] [place] [facility] [address] [id number] [place] [address]- 5918 May, [facility] [place] [facility] [address] [id number] [place] [address]- 2433 May, [facility] [place] [facility] [address] [id number] [place] [address]- 6578 May, [facility] [place] [facility] [address] [id number] [place] [address]- 6337 May, [facility] [place] [facility] [address] [id number] [place] [address]- 8488 Apr, [facility] [place] [facility] [address] [id number] [place] [address]- 4485 Apr, [facility] [place] [facility] [address] [id number] [place] [address]- 1519 Apr, [facility] [place] [facility] [address] [id number] [place] [address]- 2023 Apr, [facility] [place] [facility] [address] [id number] [place] [address]- 9193 Apr, [facility] [place] [facility] [address] [id number] [place] [address]- 2810 Apr, [facility] [place] [facility] [address] [id number] [place] [address]- 9825 Feb, [facility] [place] [facility] [address] [id number] [place] [address]- 5944 Feb, [facility] [place] [facility] [address] [id number] [place] [address] 2546 Feb, [facility] [place] [facility] [address] [id number] [place] [address]- 6455 Feb, [facility] [place] [facility] [address] [id number] [place] [address]- 8208 Feb, [facility] [place] [facility] [address] [id number] [place] [address]- 4385 Feb, [facility] [place] [facility] [address] [id number] [place] [address]- 3010 Jan, [facility] [place] [facility] [address] [id number] [place] [address]- 5965 Jan, [facility] [place] [facility] [address] [id number] [place] [address]- 5640 Jan, [facility] [place] [facility] [address] [id number] [place] [address]- 3473 Jan, [facility] [place] [facility] [address] [id number] [place] [address]- 8676 Jan, [facility] [place] [facility] [address] [id number] [place] [address]- 1056 Nov, [facility] [place] [facility] [address] [id number] [place] [address]- 2542 Oct, [facility] [place] [facility] [address] [id number] [place] [address]- 8056 Sep, [facility] [place] [facility] [address] [id number] [place] [address]- 2546 Sep, [facility] [place] [facility] [address] [id number] [place] [address]- 4328 August, [facility] [address] [id number] [place] [address]- 8913 Jul, [facility] [place] [facility] [address] [id number] [place] [address]- 8319 Jul, [facility] [place] [facility] [address] [id number] [place] [address]- 5513 Jun, [facility] [place] [facility] [address] [id number] [place] [address]- 8779 Jun, [facility] [place] [facility] [address] [id number] [place] [address]- 7774 Jun, [facility] [place] [facility] [address] [id number] [place] [address]- 9793 Jun, [facility] [place] [facility] [address] [id number] [place] [address]- 0878 Jun, [facility] [place] [facility] [address] [id number] [place] [address]- 7530 05 Jun, 2012 [facility] [place] [facility] [address] [id number] [place] [address]- 2229 Apr, [facility] [place] [facility] [address] [id number] [place] [address]- 0265 Mar, [facility] [place] [facility] [address] [id number] [place] [address]- 1016 18 Mar, 2012 [facility] [place] [facility] [address] [id number], [place] [address]- 1797 15 Feb, 2012 [facility] [place] [facility] [address] [id number] [place] [address]- 8115 15 Feb, 2012 [facility] [place] [facility] [address] [id number] [place] [address]- 0949 15 Feb, 2012 [facility] [place] [facility] [address] [id number] [place] [address]- 5063 15 Feb, 2012 [facility] [place] [facility] [address] [id number] [place] [address]- 9069 Feb, [facility] [place] [facility] [address] [id number] [place] [address]- 9750 Feb, [facility] [place] [facility] [address] [id number] [place] [address]- 2886 Feb, [facility] [place] [facility] [address] [id number] [place] [address]- 2209 Feb, [facility] [place] [facility] [address] [id number] [place] [address]- 3024 Jan, [facility] [place] [facility] [address] [id number] [place] 1580 Jan, [facility] [place] [facility] [address] [id number] [place] [address]- 9186 Jan, [facility] [place] [facility] [address] [id number] [place] [address]- 0167 28 Dec, 2011 [facility] [place] [facility] [address] [id number] [place] [address]- 7712 24 Dec, 2011 [facility] [place] [facility] [address] [id number] [place] [address]- 7811 24 Dec, 2011 [facility] [place] [facility] [address] [id number] [place] [address]- 9922 18 Dec, 2011 [facility] [place] [facility] [address] [id number] [place] [address]- 9832 18 Dec, 2011 [facility] [place] [facility] [address] [id number] [place] [address]- 9404 17 Dec, 2011 [facility] [place] [facility] [address] [id number] [place] [address]- 4988 Nov, [facility] [place] [facility] [address] [id number] [place] [address]- 2536 Oct, [facility] [place] [facility] [address] [id number] [place] [address]- 6959 Oct, [facility] [place] [facility] [address] [id number] [place] [address]- 0611 Oct, [facility] [place] [facility] [address] [id number] [place] [address]- 0370 Sep, [facility] [place] [facility] [address] [id number] [place] [address]- 1108 August, [facility] [place] [facility] [address] [id number] [place] [address]- 5631 August, [facility] [place] [facility] [address] [id number] [place] [address]- 6229 Jul, [facility] [place] [facility] [address] [id number] [place] [address]- 8142 Jul, [facility] [place] [facility] [address] [id number] [place] [address]- 6276 Jul, [facility] [place] [facility] [address] [id number] [place] [address]- 2854 Jul, [facility] [place] [facility] [address] [id number] [place] [address]- 1137 Jun, [facility] [place] [facility] [address] [id number] [place] [address]- 1130 Jun, [facility] [place] [facility] [address] [id number] [place] [address]- 4714 Jun, [facility] [place] [facility] [address] [id number] [place] [address]- 0053 Jun, [facility] [place] [facility] [address] [id number] [place] [address]- 5276 Jun, [facility] [place] [facility] [address] [id number] [place] [address]- 6320 Jun, [facility] [place] [facility] [address] [id number] [place] [address]- 3542 Jun, [facility] [place] [facility] [address] [id number], [place] [address]- 0826 Jun, [facility] [address] [id number] [place] [address]- 2546 May, [facility] [address] [id number], [place] [address]- 2546 Apr, [facility] [address] [id number] [place] [address]- 2546 Feb, IMMUNIZATIONS No Known Immunizations SOCIAL HISTORY Never Assessed REASON FOR VISIT Ameritox CBrumbackRN PLAN OF CARE VITAL SIGNS MEDICATIONS Unknown Medications RESULTS No Results PROCEDURES No Known procedures INSTRUCTIONS MEDICATIONS ADMINISTERED No Known Medications MEDICAL (GENERAL) HISTORY Type Description Date Medical History Fainting, Seizures, Epilepsy Medical History Hepatitis C Medical History Back Trouble Surgical History cyst removed 03/2015 Surgical History cyst removal 12/2015
--- OUTSIDE RECORDS SUMMARY | 2018-06-26 17:15 | XMS REPORT ---
Author Author YOLETTE DUNLAP Organization [facility] Address [address] [place] [address] Care Team Providers Care Gym Instructor Name Role Phone YOLETTE DUNLAP Unavailable PROBLEMS Type Condition ICD9-CM Code HNW66-GX Code Onset Dates Condition Status SNOMED Code Problem Other chronic pain G89.29 Active 63773115 Problem Lumbago with sciatica, right side M54.41 Active 604683210 Problem Anxiety F41.9 Active 58131069 Problem Cigarette nicotine dependence without complication F17.210 Active 47284116 Problem Other chronic pain G89.29 Active 06374329 Problem Seizures R56.9 Active 32352277 Problem Simple chronic bronchitis J41.0 Active 85939856 Problem Gastroenteritis K52.9 Active 43393736 ALLERGIES No Information ENCOUNTERS Encounter Location Date Diagnosis [place] [id number] [place] [address] 54348- 0920 Sep, [place] [address] [place] [id number] [place] [address] 20022- 7365 August, [place] [address] [id number] [place] [address] 52455- 6413 Jun, [facility] [id number] [place] [address] 50633- 3048 Apr, Lumbar neuritis M54.16 [facility] [id number] [place] [address] 69077- 1350 Apr, [facility] [id number] [place] [address] 83270- 9290 Apr, Lumbar neuritis M54.16 [place] [address] [address] [id number] [place] [address] 60105- 7868 Mar, Lumbar neuritis M54.16 [place] [address] [address] [id number] [place] [address] 80084- 8106 Feb, Lumbar neuritis M54.16 [facility] [id number] [place] [address] 64794- 9526 Feb, Anxiety F41.9 and Seizures R56.9 [facility] [id number] [place] [address] 48887 2546 Feb, [facility] [address] [address] 2546 Jan, Lumbar neuritis M54.16 [facility] [id number] [place] [address] 37000- 4416 Jan, Seizures R56.9 [facility] [id number] [place] [address] 69835- 8536 Jan, [facility] [id number] [place] [address] 06086- 1086 Dec, Lumbar neuritis M54.16 [facility] [id number] [place] [address] 54539 2546 Dec, [facility] [id number] [place] [address] 71283- 7746 Nov, Lumbar neuritis M54.16 [facility] [id number] [place] [address] 71948 2546 Nov, [facility] [id number] [place] [address] 55649 2546 Nov, [facility] [id number] [place] [address] 54391- 9926 Nov, Lumbar neuritis M54.16 [facility] [id number] [place] [address] 13622 2546 Oct, Lumbar neuritis M54.16 [facility] [id number] [place] [address] 90989- 9356 Sep, Lumbago with sciatica, right side M54.41 and Seizures R56.9 [place] [address] 90564- 7565 Sep, Lumbar neuritis M54.16 [place] [address] 84298- 7402 August, Lumbar neuritis M54.16 and Anxiety F41.9 [place] [address] 50295- 2423 August, Simple chronic bronchitis J41.0 ; Hemoptysis R04.2 and Cigarette nicotine dependence without complication F17.210 [place] [address] 35221- 1485 Jul, Lumbago with sciatica, right side M54.41 [place] [address] 80980- 3258 Jul, Lumbago with sciatica, right side M54.41 [place] [address] 97169- 7706 Jun, Lumbago with sciatica, right side M54.41 [place] [address] 46914- 0466 Jun, Lumbago with sciatica, right side M54.41 [place] [address] 59682- 3618 Jun, Lumbago with sciatica, right side M54.41 [facility] [address] 64530 -2264 Jun, Gastroenteritis K52.9 [place] [address] 69515- 2495 May, Seizures R56.9 ; Tobacco use Z72.0 ; Tobacco abuse counseling Z71.6 ; Tooth abscess K04.7 ; Pain in right leg M79.604 ; Pain of left leg M79.605 ; Other chronic pain G89.29 and Neuropathy G62.9 [facility] [id number] [place] [address] 13924- 5696 May, Lumbago with sciatica, right side M54.41 [facility] [address] [id number] [place] [address] 20048- 5496 Apr, Lumbago with sciatica, right side M54.41 [facility] [address] [id number] [place] [address] 61084- 9006 Mar, Lumbago with sciatica, right side M54.41 [place] [address] [id number] [place] [address] 36519- 0616 Mar, [place] [address] [place] [id number] [place] [address] 39779- 7256 Mar, Lumbago with sciatica, right side M54.41 [facility] [address] [id number] [place] [address] 07280- 8384 Feb, Lumbago with sciatica, right side M54.41 and Other chronic pain G89.29 [place] [address] [place] [id number] [place] [address] 98532- 9995 Feb, [place] [address] [place] [id number] [place] [address] 93550- 5640 Nov, Dental caries K02.9 [place] [address] [id number] [place] [address] 53948- 9073 Oct, Dental examination Z01.20 [place] [address] [place] [id number] [place] [address] 56884- 3196 Jul, Dental examination Z01.20 [facility] [address] [address] [id number] [place] [address] 50417- 8591 Jul, Dental examination Z01.20 and Dental caries K02.9 [facility] [address] [address] [id number] [place] [address] 23654- 1150 Jun, Dental examination Z01.20 [facility] [place] [facility] [address] [id number] [place] [address]- 7240 Jul, [facility] [place] [facility] [address] [id number] [place] [address]- 1161 Jul, [facility] [place] [facility] [address] [id number] [place] [address]- 5514 Apr, [facility] [place] [facility] [address] [id number] [place] [address]- 0248 Apr, [facility] [place] [facility] [address] [id number] [place] [address]- 2468 Mar, [facility] [place] [facility] [address] [id number] [place] [address]- 4300 Mar, [facility] [place] [facility] [address] [id number] [place] [address]- 9325 Nov, [facility] [place] [facility] [address] [id number] [place] [address]- 5990 Nov, [facility] [place] [facility] [address] [id number] [place] [address]- 5924 Nov, [facility] [place] [facility] [address] [id number] [place] [address]- 2599 Nov, [facility] [place] [facility] [address] [id number], [place] [address]- 8913 Oct, [facility] [place] [facility] [address] [id number], [place] [address]- 6958 Oct, [facility] [place] [facility] [address] [id number] [place] [address]- 4424 Sep, [facility] [place] [facility] [address] [id number] [place] [address]- 8313 Sep, [facility] [place] [facility] [address] [id number] [place] [address]- 9057 August, [facility] [place] [facility] [address] [id number] [place] [address]- 5841 August, [facility] [place] [facility] [address] [id number] [place] [address]- 9125 Jul, [facility] [place] [facility] [address] [id number] [place] [address]- 4366 Jul, [facility] [place] [facility] [address] [id number] [place] [address]- 5842 Jul, [facility] [place] [facility] [address] [id number] [place] [address]- 1012 Jul, [facility] [place] [facility] [address] [id number] [place] [address]- 9248 Jul, [facility] [place] [facility] [address] [id number] [place] [address]- 5846 Jul, [facility] [place] [facility] [address] [id number] [place] [address]- 7012 Jul, [facility] [place] [facility] [address] [id number] [place] [address]- 8766 Jul, [facility] [place] [facility] [address] [id number] [place] [address]- 0179 Jul, [facility] [place] [facility] [address] [id number] [place] [address]- 7295 Jul, [facility] [place] [facility] [address] [id number] [place] [address]- 5998 Jun, [facility] [place] [facility] [address] [id number] [place] [address]- 9086 Jun, [facility] [place] [facility] [address] [id number] [place] [address]- 6184 10 Jun, 2013 [facility] [place] [facility] [address] [id number] [place] [address]- 9066 08 Jun, 2013 [facility] [place] [facility] [address] [id number] [place] [address]- 6799 Jun, [facility] [place] [facility] [address] [id number] [place] [address]- 7052 Jun, [facility] [place] [facility] [address] [id number] [place] [address]- 5530 May, [facility] [place] [facility] [address] [id number] [place] [address]- 2645 May, [facility] [place] [facility] [address] [id number] [place] [address]- 7853 May, [facility] [place] [facility] [address] [id number] [place] [address]- 2012 May, [facility] [place] [facility] [address] [id number] [place] [address]- 7030 Apr, [facility] [place] [facility] [address] [id number] [place] [address]- 9860 Apr, [facility] [place] [facility] [address] [id number] [place] [address]- 0960 Apr, [facility] [place] [facility] [address] [id number] [place] [address]- 4265 Apr, [facility] [place] [facility] [address] [id number] [place] [address]- 1956 Apr, [facility] [place] [facility] [address] [id number] [place] [address]- 7558 Apr, [facility] [place] [facility] [address] [id number] [place] [address]- 5778 Feb, [facility] [place] [facility] [address] [id number] [place] [address]- 0321 Feb, [facility] [place] [facility] [address] [id number] [place] [address]- 2514 Feb, [facility] [place] [facility] [address] [id number] [place] [address]- 8832 Feb, [facility] [place] [facility] [address] [id number] [place] [address]- 9321 08 Feb, 2013 [facility] [address] [id number] [place] [address]- 1435 Feb, [facility] [place] [facility] [address] [id number] [place] [address]- 5055 Jan, [facility] [address] [id number] [place] [address]- 1191 Jan, [facility] [place] [facility] [address] [id number] [place] [address]- 1433 Jan, [facility] [address] [id number] [place] [address]- 4240 Jan, [facility] [place] [facility] [address] [id number] [place] [address]- 6761 Jan, [facility] [address] [id number] [place] [address]- 6911 Nov, [facility] [address] [id number] [place] [address]- 3084 Oct, [facility] [place] [facility] [address] [id number] [place] [address]- 5805 Sep, [facility] [address] [id number] [place] [address]- 2555 Sep, [facility] [place] [facility] [address] [id number] [place] [address]- 4767 August, [facility] [place] [facility] [address] [id number] [place] [address]- 3145 Jul, [facility] [place] [facility] [address] [id number] [place] [address]- 6853 Jul, [facility] [place] [facility] [address] [id number] [place] [address]- 2546 Jun, [facility] [place] [facility] [address] [id number] [place] [address]- 0755 Jun, [facility] [place] [facility] [address] [id number] [place] [address]- 1255 26 Jun, 2012 [facility] [place] [facility] [address] [id number] [place] [address]- 9366 25 Jun, 2012 [facility] [place] [facility] [address] [id number] [place] [address]- 5008 06 Jun, 2012 [facility] [place] [facility] [address] [id number] [place] [address]- 1530 05 Jun, 2012 [facility] [place] [facility] [address] [id number] [place] [address]- 1257 08 Apr, 2012 [facility] [place] [facility] [address] [id number] [place] [address]- 3570 18 Mar, 2012 [facility] [place] [facility] [address] [id number] [place] [address]- 6172 18 Mar, 2012 [facility] [place] [facility] [address] [id number] [place] [address]- 5103 15 Feb, 2012 [facility] [place] [facility] [address] [id number] [place] [address]- 3609 Feb, [facility] [place] [facility] [address] [id number] [place] [address]- 2891 15 Feb, 2012 [facility] [place] [facility] [address] [id number] [place] [address]- 8593 15 Feb, 2012 [facility] [place] [facility] [address] [id number], [place] [address]- 9478 Feb, [facility] [place] [facility] [address] [id number] [place] [address]- 2221 Feb, [facility] [place] [facility] [address] [id number] [place] [address]- 5016 Feb, [facility] [place] [facility] [address] [id number] [place] 4667 Feb, [facility] [place] [facility] [address] [id number], [place] [address]- 8412 Jan, [facility] [place] [facility] [address] [id number] [place] [address]- 9054 Jan, [facility] [place] [facility] [address] [id number] [place] [address]- 1886 Jan, [facility] [place] [facility] [address] [id number] [place] [address]- 8036 28 Dec, 2011 [facility] [place] [facility] [address] [id number] [place] [address]- 0059 24 Dec, 2011 [facility] [place] [facility] [address] [id number] [place] [address]- 3641 24 Dec, 2011 [facility] [place] [facility] [address] [id number] [place] [address]- 0180 18 Dec, 2011 [facility] [place] [facility] [address] [id number] [place] [address]- 7438 Dec, [facility] [place] [facility] [address] [id number] [place] [address]- 5283 17 Dec, 2011 [facility] [place] [facility] [address] [id number] [place] [address]- 3212 Nov, [facility] [place] [facility] [address] [id number] [place] [address]- 2992 Oct, [facility] [place] [facility] [address] [id number] [place] [address]- 6806 Oct, [facility] [place] [facility] [address] [id number] [place] [address]- 0664 Oct, [facility] [place] [facility] [address] [id number] [place] [address]- 1213 Sep, [facility] [place] [facility] [address] [id number] [place] [address]- 9018 August, [facility] [place] [facility] [address] [id number] [place] [address]- 2947 August, [facility] [place] [facility] [address] [id number], [place] [address]- 2021 25 Jul, 2011 [facility] [address] [facility] [id number], [place] [address]- 6246 Jul, [facility] [address] [facility] [id number], [place] [address]- 6456 Jul, [facility] [address] [facility] [id number], [place] [address]- 8696 Jul, [facility] [address] [facility] [id number] [place] [address]- 2597 Jun, [facility] [address] [facility] [id number] [place] [address]- 8582 Jun, [facility] [address] [facility] [id number] 2144 Jun, [facility] [address], [place] [address]- 3020 Jun, [facility] [address] [id number], [place] [address]- 1808 Jun, [facility] [address], [place] [address]- 0050 Jun, [facility] [address] [id number], [place] [address]- 3413 Jun, [facility] [address] [id number], [place] [address]- 8386 Jun, [facility] [address] [facility] [id number], [place] [address]- 2301 May, [facility] [address], [place] [address]- 0526 Apr, [facility] [address] [id number], [place] [address]- 7545 Feb, IMMUNIZATIONS No Known Immunizations SOCIAL HISTORY Never Assessed REASON FOR VISIT Controlled Med Refill 12/19/17 PLAN OF CARE VITAL SIGNS MEDICATIONS Medication Instructions Dosage Frequency Start Date End Date Duration Status Xanax 1 MG Orally Twice a day 1 tablet 12h August, 28 days Active Oxycodone HCl 10 MG Orally every 6 hrs 1 tablet as needed 6h Mar, 28 days Active RESULTS No Results PROCEDURES No Known procedures INSTRUCTIONS MEDICATIONS ADMINISTERED No Known Medications MEDICAL (GENERAL) HISTORY Type Description Date Medical History Fainting, Seizures, Epilepsy Medical History Hepatitis C Medical History Back Trouble Surgical History cyst removed 03/2015 Surgical History cyst removal 12/2015
--- OUTSIDE RECORDS SUMMARY | 2018-06-26 17:15 | XMS REPORT ---
Author YOLETTE Guerra [facility] eClinical[employer] Address Unknown Phone Unavailable Care Team Providers Care Finance Mgr Name Role Phone YOLETTE DUNLAP CP Unavailable Allergies, Adverse Reactions, Alerts Substance Reaction Event Type N.K.D.A. Info Not Available Non Drug Allergy Problems Problem Type Condition Code Onset Dates Condition Status Assessment Other chronic pain G89.29 Active Problem Disturbance of skin sensation 782.0 Active Assessment Lumbago with sciatica, right side M54.41 Active Problem Encounter for long-term (current) use [...] Instructions Start Date End Date Status Dosage Lamictal [facility] [address]-14 150 mg June 29, 2013 take 1 tablet by Oral route 2 times per day BusPIRone HCl [facility] [address]-74 10 mg Orally Twice a day Mar 20, 2016 1 tablet Prilosec [facility] [address]-70 20 MG Orally Once a day 2 capsules [place] [facility] [address]-37 10-325 MG Orally 2 times a day Mar 20, 2016 1 tablet as needed Topamax [facility] [address]-21 100 MG Orally Twice a day Apr 28, 2013 1 Tablet by Oral route 2 daily Procedures Procedure Coding System Code Date Office Visit, New Pt., Level 3 CPT-4 58646 Mar 20, 2016 Vital Signs Date/Time: Mar 20, 2016 Cardiac Monitoring Heart Rate 76 bpm Weight 150.3 lbs Height 70 in BMI 21.56 Index Blood Pressure Diastolic 72 mmHg Blood Pressure Systolic 112 mmHg Results No Known Results Summary Purpose eClinicalWorks Submission
--- OUTSIDE RECORDS SUMMARY | 2018-06-26 17:16 | XMS REPORT ---
Author Author KATIA Huynh Organization [facility] Address [address] [place] [address] Care Team Providers Care Fare Register Repairer Name Role Phone KATIA Huynh Unavailable PROBLEMS Type Condition ICD9-CM Code EUO42-FG Code Onset Dates Condition Status SNOMED Code Problem Other chronic pain G89.29 Active 77021113 Problem Lumbago with sciatica, right side M54.41 Active 216289752 Problem Anxiety F41.9 Active 95176644 Problem Cigarette nicotine dependence without complication F17.210 Active 67044974 Problem Other chronic pain G89.29 Active 83189531 Problem Seizures R56.9 Active 14310141 Problem Simple chronic bronchitis J41.0 Active 39000458 Problem Gastroenteritis K52.9 Active 49382167 ALLERGIES Substance Reaction Event Type Date Status Tramadol HCl Pt states induces seizures Drug Allergy Feb, Active Penicillamine Unknown Drug Allergy Feb, Active Dilantin hives Drug Allergy Feb, Active BusPIRone HCl Pt states induces seizures Drug Allergy Feb, Active ENCOUNTERS Encounter Location Date Diagnosis [facility] [id number], [place] [address] Sep, [facility] [address], [place] [address] August, [facility] [address], [place] [address] Jun, [facility] [id number] [place] [address]997- 6156 Apr, Lumbar neuritis M54.16 [facility] [address], [place] [address] Apr, [facility] [id number] [place] [address] 00282- 2627 Apr, Lumbar neuritis M54.16 [facility] [id number] [place] [address] 41057 2546 Mar, Lumbar neuritis M54.16 [facility] [id number] [place] [address] 92850 2546 Feb, Lumbar neuritis M54.16 [facility] [id number] [place] [address] 33419 2546 Feb, Anxiety F41.9 and Seizures R56.9 [facility] [address] [address] Feb, [facility] [id number] [place] [address] 82830 2546 Jan, Lumbar neuritis M54.16 [facility] [id number] [place] [address] 28469 2546 Jan, Seizures R56.9 [facility] [id number] [place] [address] 93806 2546 Jan, [facility] [id number] [place] [address] 76519 2546 Dec, Lumbar neuritis M54.16 [facility] [id number] [place] [address] 78244 2546 Dec, [facility] [id number] [place] [address] 80387 2546 Nov, Lumbar neuritis M54.16 [facility] [id number] [place] [address] 73576 2546 Nov, [facility] [id number] [place] [address] 40152 2546 Nov, [facility] [id number] [place] [address] 99310- 3786 Nov, Lumbar neuritis M54.16 [facility] [id number] [place] [address] 69484- 2330 Oct, Lumbar neuritis M54.16 [facility] [address] [address]- [address]186 Sep, Lumbago with sciatica, right side M54.41 and Seizures R56.9 [facility] [address] [address]- 2734 Sep, Lumbar neuritis M54.16 [facility] [address] [address]- 3601 August, Lumbar neuritis M54.16 and Anxiety F41.9 [facility] [address] 16208- 9794 August, Simple chronic bronchitis J41.0 ; Hemoptysis R04.2 and Cigarette nicotine dependence without complication F17.210 [facility] [address] [address]32- 8745 Jul, Lumbago with sciatica, right side M54.41 [place] [address] [address]28- 8876 Jul, Lumbago with sciatica, right side M54.41 [facility] [address] 74[address]- 3764 Jun, Lumbago with sciatica, right side M54.41 [facility] [facility] [id number] [place] [address] 87886- 4383 Jun, Lumbago with sciatica, right side M54.41 [place] [address] 72427- 3979 Jun, Lumbago with sciatica, right side M54.41 [facility] [id number] [place] [address] 14984 -3173 Jun, Gastroenteritis K52.9 [facility] [id number] [place] [address] 11720- 1841 May, Seizures R56.9 ; Tobacco use Z72.0 ; Tobacco abuse counseling Z71.6 ; Tooth abscess K04.7 ; Pain in right leg M79.604 ; Pain of left leg M79.605 ; Other chronic pain G89.29 and Neuropathy G62.9 [facility] [id number] [place] [address] 76994- 0020 May, Lumbago with sciatica, right side M54.41 [facility] [address] 69191- 1245 Apr, Lumbago with sciatica, right side M54.41 [facility] [id number] [place] [address] 06098- 8622 Mar, Lumbago with sciatica, right side M54.41 [place] [address] 79309- 5899 Mar, [place] [address] 76982- 9745 Mar, Lumbago with sciatica, right side M54.41 [facility] [id number] [place] [address] 13598- 6165 Feb, Lumbago with sciatica, right side M54.41 and Other chronic pain G89.29 [facility] [id number] [place] [address] 65715- 4622 Feb, [place] [id number] [place] [address] 10505- 7040 Nov, Dental caries K02.9 [place] [id number] [place] [address] 46430- 6112 Oct, Dental examination Z01.20 [facility] [id number] [place] [address] 39975- 8678 Jul, Dental examination Z01.20 [place] [address] [id number] [place] [address]- 1336 19 Jul, 2015 Dental examination Z01.20 and Dental caries K02.9 [facility] [address] [id number] [place] [address]- 1813 Jun, Dental examination Z01.20 [facility] [address] [id number] [place] [address]- 2871 14 Jul, 2014 [facility] [address] [id number] [place] [address]- 7071 Jul, [facility] [address] [id number] [place] [address]- 3772 Apr, [facility] [address] [id number] [place] [address]- 1892 Apr, [facility] [address] [facility] [id number] [place] [address]- 6697 Mar, [facility] [address] [id number] [place] [address]- 1742 Mar, [facility] [address] [facility] [id number] [place] [address]- 7092 Nov, [facility] [address] [facility] [id number] [place] [address]- 5160 Nov, [facility] [address] [facility] [id number] [place] [address]- 9237 Nov, [facility] [address] [id number], [place] [address]- 1609 Nov, [facility] [address] [id number] [place] [address]- 0694 Oct, [facility] [address] [facility] [id number] [place] [address]- 7922 Oct, [facility] [address] [facility] [id number] [place] [address]- 0000 Sep, [facility] [place] [facility] [address] [id number] [place] [address]- 5055 Sep, [facility] [place] [facility] [address] [id number] [place] [address]- 0138 August, [facility] [place] [facility] [address] [id number] [place] [address]- 1336 August, [facility] [place] [facility] [address] [id number] [place] [address]- 5775 Jul, [facility] [place] [facility] [address] [id number] [place] [address]- 6026 Jul, [facility] [place] [facility] [address] [id number] [place] [address]- 8794 Jul, [facility] [place] [facility] [address] [id number] [place] [address]- 0060 Jul, [facility] [place] [facility] [address] [id number] [place] [address]- 8916 Jul, [facility] [place] [facility] [address] [id number] [place] [address]- 4457 Jul, [facility] [place] [facility] [address] [id number] [place] [address]- 0914 Jul, [facility] [place] [facility] [address] [id number] [place] [address]- 3442 Jul, [facility] [place] [facility] [address] [id number] [place] [address]- 8812 Jul, [facility] [place] [facility] [address] [id number] [place] [address]- 0913 Jul, [facility] [place] [facility] [address] [id number] [place] [address]- 0812 Jun, [facility] [place] [facility] [address] [id number] [place] [address]- 7370 Jun, [facility] [place] [facility] [address] [id number] [place] [address]- 7956 Jun, [facility] [place] [facility] [address] [id number] [place] [address]- 2310 Jun, [facility] [place] [facility] [address] [id number] [place] [address]- 2872 Jun, [facility] [place] [facility] [address] [id number] [place] [address]- 2154 Jun, [facility] [place] [facility] [address] [id number] [place] [address]- 4284 May, [facility] [place] [facility] [address] [id number] [place] [address]- 6912 May, [facility] [place] [facility] [address] [id number] [place] [address]- 9458 May, [facility] [place] [facility] [address] [id number] [place] [address]- 5869 May, [facility] [place] [facility] [address] [id number] [place] [address]- 1683 Apr, [facility] [place] [facility] [address] [id number] [place] [address]- 4180 Apr, [facility] [place] [facility] [address] [id number] [place] [address]- 2988 Apr, [facility] [place] [facility] [address] [id number] [place] [address]- 9838 Apr, [facility] [place] [facility] [address] [id number] [place] [address]- 7038 Apr, [facility] [place] [facility] [address] [id number] [place] [address]- 9787 Apr, [facility] [place] [facility] [address] [id number] [place] [address]- 1496 Feb, [facility] [place] [facility] [address] [id number] [place] [address]- 7525 Feb, [facility] [place] [facility] [address] [id number] [place] [address]- 1198 14 Feb, 2013 [facility] [address] [id number] [place] [address]- 3503 14 Feb, 2013 [facility] [place] [facility] [address] [id number] [place] [address]- 2686 Feb, [facility] [place] [facility] [address] [id number] [place] [address]- 7563 Feb, [facility] [place] [facility] [address] [id number] [place] [address]- 1787 Jan, [facility] [place] [facility] [address] [id number] [place] [address]- 1629 Jan, [facility] [place] [facility] [address] [id number] [place] [address]- 6635 Jan, [facility] [place] [facility] [address] [id number] [place] [address]- 9023 Jan, [facility] [place] [facility] [address] [id number] [place] [address]- 0019 Jan, [facility] [place] [facility] [address] [id number] [place] [address]- 8104 Nov, [facility] [place] [facility] [address] [id number] [place] [address]- 0067 Oct, [facility] [place] [facility] [address] [id number] [place] [address]- 6029 Sep, [facility] [place] [facility] [address] [id number] [place] [address]- 4187 Sep, [facility] [place] [facility] [address] [id number] [place] [address]- 6368 August, [facility] [place] [facility] [address] [id number] [place] [address]- 2546 Jul, [facility] [place] [facility] [address] [id number] [place] [address]- 8963 Jul, [facility] [place] [facility] [address] [id number] [place] [address]- 1030 Jun, [facility] [place] [facility] [address] [id number] [place] [address]- 2936 27 Jun, 2012 [facility] [place] [facility] [address] [id number] [place] [address]- 6504 Jun, [facility] [place] [facility] [address] [id number] [place] [address]- 0940 Jun, [facility] [place] [facility] [address] [id number] [place] [address]- 4988 06 Jun, 2012 [facility] [place] [facility] [address] [id number] [place] [address]- 2954 05 Jun, 2012 [facility] [place] [facility] [address] [id number] [place] [address]- 7905 Apr, [facility] [place] [facility] [address] [id number] [place] [address]- 6876 Mar, [facility] [place] [facility] [address] [id number] [place] [address]- 7043 Mar, [facility] [place] [facility] [address] [facility] [id number], [place] [address]- 2638 Feb, [facility] [place] [facility] [address] [id number], [place] [address]- 3381 Feb, [facility] [place] [facility] [address] [id number], [place] [address]- 8197 15 Feb, 2012 [facility] [place] [facility] [address] [id number] [place] [address]- 0552 Feb, [facility] [place] [facility] [address] [id number], [place] [address]- 9061 Feb, [facility] [place] [facility] [address] [id number], [place] [address]- 5972 Feb, [facility] [place] [facility] [address] [id number], [place] [address]- 4424 Feb, [facility] [place] [facility] [address] [id number] [place] [address]- 2420 Feb, [facility] [place] [facility] [address] [facility] [id number] [place] [address]- 1225 Jan, [facility] [place] [facility] [address] [facility] [id number] [place] [address]- 6535 Jan, [facility] [place] [facility] [address] [id number] [place] [address]- 9943 Jan, [facility] [place] [facility] [address] [id number] [place] [address]- 5270 28 Dec, 2011 [facility] [place] [facility] [address] [id number] [place] [address]- 0714 24 Dec, 2011 [facility] [place] [facility] [id number] [address]- 9140 24 Dec, 2011 [facility] [place] [facility] [address] [facility] [id number] [place] [address]- 7417 18 Dec, 2011 [facility] [place] [facility] [id number] [place] [address]- 5754 18 Dec, 2011 [facility] [place] [facility] [id number] [place] [address]- 3019 17 Dec, 2011 [facility] [place] [facility] [address] [facility] [id number] [place] [address]- 6307 Nov, [facility] [place] [facility] [address] [facility] [id number], [place] [address]- 8236 Oct, [facility] [place] [facility] [address] [id number] [place] [address]- 4743 Oct, [facility] [place] [facility] [address] [facility] [id number] [place] [address]- 3128 Oct, [facility] [place] [facility] [id number] [place] [address]- 1014 Sep, [facility] [place] [facility] [address] [id number] [place] [address]- 9778 August, [facility] [place] [facility] [address] [id number] [place] [address]- 1810 August, [facility] [place] [facility] [address] [id number] [place] [address]- 3396 Jul, [facility] [place] [facility] [address] [id number] [place] [address]- 6096 Jul, [facility] [place] [facility] [address] [id number] [place] [address]- 3095 Jul, [facility] [place] [facility] [address] [id number] [place] [address]- 1615 Jul, [facility] [place] [facility] [address] [id number] [place] [address]- 4393 Jun, [facility] [place] [facility] [address] [id number] [place] [address]- 9956 Jun, [facility] [place] [facility] [address] [id number] [place] [address]- 6811 Jun, [facility] [place] [facility] [address] [id number] [place] [address]- 1160 Jun, [facility] [place] [facility] [address] [id number] [place] [address]- 6723 Jun, [facility] [place] [facility] [address] [id number] [place] [address]- 0827 Jun, [facility] [place] [facility] [address] [id number] [place] [address]- 3946 Jun, [facility] [place] [facility] [address] [id number] [place] [address]- 5886 Jun, [facility] [place] [facility] [address] [id number] [place] [address]- 2546 May, [facility] [place] [facility] [address] [id number] [place] [address]- 8862 Apr, [facility] [address] [facility] [id number] [place] [address]- 7633 Feb, IMMUNIZATIONS No Known Immunizations SOCIAL HISTORY Never Assessed REASON FOR VISIT intake PLAN OF CARE Activity Details Follow Up prn Reason:Anxiety VITAL SIGNS MEDICATIONS Medication Instructions Dosage Frequency Start Date End Date Duration Status Lamictal 200 mg Orally 2 times a day 1 tablet 12h Jun, 30 days Unknown Prilosec 20 mg Orally Once a day 1 capsule 24h Unknown Topamax 200 MG Orally Twice a day 1 Tablet by Oral route 2 daily 12h Apr 90 Unknown Omeprazole 20 MG TAKE ONE CAPSULE BY MOUTH ONCE DAILY 90 Unknown Viagra 100 mg Orally Once a day 1 tablet as needed 24h 10 Unknown Oxycodone HCl 10 MG Orally every 6 hrs 1 tablet as needed 6h 24 Jan, 2017 28 days Unknown Xanax 1 MG Orally Twice a day 1 tablet 12h August, 28 days Unknown Naproxen 500 mg Orally every 12 hrs 1 tablet as needed 12h Jan, Unknown RESULTS No Results PROCEDURES Procedure Date Ordered Result Body Site Psych diagnostic evaluation, new patient Mar 16, 2017 INSTRUCTIONS MEDICATIONS ADMINISTERED No Known Medications MEDICAL (GENERAL) HISTORY Type Description Date Medical History Fainting, Seizures, Epilepsy Medical History Hepatitis C Medical History Back Trouble Surgical History cyst removed 03/2015 Surgical History cyst removal 12/2015
--- OUTSIDE RECORDS SUMMARY | 2018-06-26 17:16 | XMS REPORT ---
Author Author YOLETTE DUNLAP [facility] Address [address] [place] [address] Care Team Providers Care Utility Plant Operative Name Role Phone YOLETTE DUNLAP Unavailable PROBLEMS Type Condition ICD9-CM Code [id number] Code Onset Dates Condition Status SNOMED Code Problem Other chronic pain G89.29 Active 25576682 Problem Lumbago with sciatica, right side M54.41 Active 525029016 Problem Anxiety F41.9 Active 94096162 Problem Cigarette nicotine dependence without complication F17.210 Active 59875506 Problem Other chronic pain G89.29 Active 09636122 Problem Seizures R56.9 Active 50849509 Problem Simple chronic bronchitis J41.0 Active 23220510 Problem Gastroenteritis K52.9 Active 40214299 ALLERGIES No Information SOCIAL HISTORY Never Assessed PLAN OF CARE VITAL SIGNS MEDICATIONS Medication Instructions Dosage Frequency Start Date End Date Duration Status Xanax 1 MG Orally Once a day 1 tablet 24h Mar, 28 days Active RESULTS No Results PROCEDURES No Known procedures IMMUNIZATIONS No Known Immunizations MEDICAL (GENERAL) HISTORY Type Description Date Medical History Fainting, Seizures, Epilepsy Medical History Hepatitis C Medical History Back Trouble Surgical History cyst removed 03/2015 Surgical History cyst removal 12/2015
--- OUTSIDE RECORDS SUMMARY | 2018-06-26 17:16 | XMS REPORT ---
Author Author YOLETTE DUNLAP Organization [facility] Address [address] [place] [address] Care Team Providers Care Senior Oracle Database Developer Name Role Phone YOLETTE DUNLAP Unavailable PROBLEMS Type Condition ICD9-CM Code KIY26-NZ Code Onset Dates Condition Status SNOMED Code Problem Other chronic pain G89.29 Active 63568879 Problem Lumbago with sciatica, right side M54.41 Active 277456598 Problem Anxiety F41.9 Active 48105609 Problem Cigarette nicotine dependence without complication F17.210 Active 13655583 Problem Other chronic pain G89.29 Active 57359984 Problem Seizures R56.9 Active 09864379 Problem Simple chronic bronchitis J41.0 Active 70688505 Problem Gastroenteritis K52.9 Active 87945504 ALLERGIES No Information ENCOUNTERS Encounter Location Date Diagnosis [facility] [id number] [place] [address] 57178- 0268 Jul, [facility] [address] [address]- 4705 Jun, [facility] [id number] [place] [address] 86077- 5702 Apr, Lumbar neuritis M54.16 [facility] [address] 39613- 8751 Apr, [facility] [id number] [place] [address] 82159- 6442 Apr, Lumbar neuritis M54.16 [facility] [address] 45744- 5959 Mar, Lumbar neuritis M54.16 [facility] [id number] [place] [address] 00274- 4530 Feb, Lumbar neuritis M54.16 [facility] [id number] [place] [address] 63530 2546 Feb, Anxiety F41.9 and Seizures R56.9 [facility] [id number] [place] [address] 37038 2546 Feb, [facility] [id number] [place] [address] 75956 2546 Jan, Lumbar neuritis M54.16 [facility] [id number] [place] [address] 08954 2546 Jan, Seizures R56.9 [facility] [address] 0[address] 2546 Jan, [facility] [id number] [place] [address] 12440 2546 Dec, Lumbar neuritis M54.16 [facility] [id number] [place] [address] 71041 2546 Dec, [facility] [id number] [place] [address] 94928 2546 Nov, Lumbar neuritis M54.16 [facility] [id number] [place] [address] 46116 2546 Nov, [facility] [id number] [place] [address] 21039 2546 Nov, [facility] [id number] [place] [address] 92925 2546 Nov, Lumbar neuritis M54.16 [facility] [id number] [place] [address] 58961 2546 Oct, Lumbar neuritis M54.16 [facility] [id number] [place] [address] 16431 2546 Sep, Lumbago with sciatica, right side M54.41 and Seizures R56.9 [facility] [address] 34176- 5466 07 Sep, 2016 Lumbar neuritis M54.16 [address] [address] 32718- 1677 August, Lumbar neuritis M54.16 and Anxiety F41.9 [place] [address] 83168- 6857 August, Simple chronic bronchitis J41.0 ; Hemoptysis R04.2 and Cigarette nicotine dependence without complication F17.210 [place] [address] 42649- 8747 Jul, Lumbago with sciatica, right side M54.41 [place] [address] 42808- 1901 Jul, Lumbago with sciatica, right side M54.41 [place] [address] 30210- 3531 Jun, Lumbago with sciatica, right side M54.41 [place] [address] 86556- 7488 Jun, Lumbago with sciatica, right side M54.41 [place] [address] 13617- 9698 Jun, Lumbago with sciatica, right side M54.41 [facility] [address] 59023 -5379 Jun, Gastroenteritis K52.9 [place] [address] 95383- 7379 May, Seizures R56.9 ; Tobacco use Z72.0 ; Tobacco abuse counseling Z71.6 ; Tooth abscess K04.7 ; Pain in right leg M79.604 ; Pain of left leg M79.605 ; Other chronic pain G89.29 and Neuropathy G62.9 [place] [address] [place] [address]- 3479 May, Lumbago with sciatica, right side M54.41 [facility] [id number] [place] [address] 88997- 1213 Apr, Lumbago with sciatica, right side M54.41 [facility] [id number] [place] [address] 23175- 0706 Mar, Lumbago with sciatica, right side M54.41 [facility] [id number] [place] [address] 83960- 8373 Mar, [facility] [id number] [place] [address] 28551- 8546 Mar, Lumbago with sciatica, right side M54.41 [facility] [id number] [place] [address] 92283- 0608 Feb, Lumbago with sciatica, right side M54.41 and Other chronic pain G89.29 [facility] [id number] [place] [address] 35269- 5341 Feb, [facility] [id number] [place] [address] 34844- 0571 Nov, Dental caries K02.9 [facility] [id number] [place] [address] 15298- 9387 Oct, Dental examination Z01.20 [facility] [id number] [place] [address] 11720- 5591 Jul, Dental examination Z01.20 [facility] [id number] [place] [address] 20304- 4359 Jul, Dental examination Z01.20 and Dental caries K02.9 [facility] [id number] [place] [address] 29364- 8889 Jun, Dental examination Z01.20 [facility] [id number] [place] [address] 50843- 5609 Jul, [facility] [place] [facility] [address] [id number] [place] [address]- 1361 Jul, [facility] [place] [facility] [address] [id number] [place] [address]- 1682 Apr, [facility] [place] [facility] [address] [id number] [place] [address]- 0425 Apr, [facility] [place] [facility] [address] [id number] [place] [address]- 3984 Mar, [facility] [place] [facility] [address] [id number] [place] [address]- 4022 Mar, [facility] [place] [facility] [address] [id number] [place] [address]- 3531 Nov, [facility] [place] [facility] [address] [id number] [place] [address]- 8924 Nov, [facility] [place] [facility] [address] [id number] [place] [address]- 2213 Nov, [facility] [place] [facility] [address] [id number] [place] [address]- 1754 Nov, [facility] [place] [facility] [address] [id number] [place] [address]- 0299 Oct, [facility] [place] [facility] [address] [id number] [place] [address]- 8853 Oct, [facility] [place] [facility] [address] [id number] [place] [address]- 9435 Sep, [facility] [place] [facility] [address] [id number] [place] [address]- 1325 Sep, [facility] [place] [facility] [address] [id number] [place] [address]- 5984 August, [facility] [place] [facility] [address] [id number] [place] [address]- 9979 August, [facility] [place] [facility] [address] [id number] [place] [address]- 5642 29 Jul, 2013 [facility] [place] [facility] [address] [id number] [place] [address]- 8947 29 Jul, 2013 [facility] [place] [facility] [address] [id number] [place] [address]- 3396 Jul, [facility] [place] [facility] [address] [id number] [place] [address]- 5156 Jul, [facility] [place] [facility] [address] [id number] [place] [address]- 4738 Jul, [facility] [place] [facility] [address] [id number] [place] [address]- 3363 Jul, [facility] [place] [facility] [address] [id number] [place] [address]- 3699 Jul, [facility] [place] [facility] [address] [id number] [place] [address]- 7933 Jul, [facility] [place] [facility] [address] [id number] [place] [address]- 8861 Jul, [facility] [place] [facility] [address] [id number] [place] [address]- 2455 Jul, [facility] [place] [facility] [address] [id number] [place] [address]- 9931 Jun, [facility] [place] [facility] [address] [id number] [place] [address]- 7034 Jun, [facility] [place] [facility] [address] [id number] [place] [address]- 8304 10 Jun, 2013 [facility] [place] [facility] [address] [id number] [place] [address]- 2957 08 Jun, 2013 [facility] [place] [facility] [address] [id number] [place] [address]- 8426 Jun, [facility] [place] [facility] [address] [id number] [place] [address]- 1879 Jun, [facility] [place] [facility] [address] [id number] [place] [address]- 0239 May, [facility] [place] [facility] [address] [id number] [place] [address]- 0675 May, [facility] [place] [facility] [address] [id number] [place] [address]- 1886 May, [facility] [place] [facility] [address] [id number] [place] [address]- 3728 May, [facility] [place] [facility] [address] [id number] [place] [address]- 6157 Apr, [facility] [place] [facility] [address] [id number] [place] [address]- 9411 Apr, [facility] [place] [facility] [address] [id number] [place] [address]- 9029 Apr, [facility] [place] [facility] [address] [id number] [place] [address]- 2032 Apr, [facility] [place] [facility] [address] [id number] [place] [address]- 2982 Apr, [facility] [place] [facility] [address] [id number] [place] [address]- 3269 Apr, [facility] [place] [facility] [address] [id number] [place] [address]- 7394 Feb, [facility] [place] [facility] [address] [id number] [place] [address]- 9525 Feb, [facility] [place] [facility] [address] [id number] [place] [address]- 1354 Feb, [facility] [place] [facility] [address] [id number] [place] [address]- 0790 Feb, [facility] [place] [facility] [address] [id number] [place] [address]- 0381 Feb, [facility] [place] [facility] [address] [id number] [place] [address]- 3505 08 Feb, 2013 [facility] [address] [id number] [place] [address]- 3513 31 Jan, 2013 [facility] [address] [id number] [place] [address]- 2458 Jan, [facility] [address] [id number] [place] [address]- 6935 Jan, [facility] [address] [id number] [place] [address]- 8849 Jan, [facility] [address] [id number] [place] [address]- 4272 Jan, [facility] [address] [id number] [place] [address]- 7135 Nov, [facility] [address] [id number] [place] [address]- 4032 Oct, [facility] [address] [id number] [place] [address]- 8626 Sep, [facility] [address] [id number] [place] [address]- 4881 Sep, [facility] [address] [id number] [place] [address]- 2112 August, [facility] [address] [id number] [place] [address]- 9801 Jul, [facility] [place] [facility] [address] [id number] [place] [address]- 8747 Jul, [facility] [place] [facility] [address] [id number] [place] [address]- 8450 Jun, [facility] [place] [facility] [address] [id number] [place] [address] 2544 Jun, [facility] [place] [facility] [address] [id number] [place] [address]- 1336 Jun, [facility] [place] [facility] [address] [id number] [place] [address]- 9355 Jun, [facility] [place] [facility] [address] [id number] [place] [address]- 2495 Jun, [facility] [place] [facility] [address] [id number] [place] [address]- 6020 05 Jun, 2012 [facility] [place] [facility] [address] [id number] [place] [address]- 5736 Apr, [facility] [place] [facility] [address] [id number] [place] [address]- 9198 Mar, [facility] [place] [facility] [address] [id number] [place] [address]- 5650 Mar, [facility] [place] [facility] [address] [facility] [id number] [place] [address]- 5336 Feb, [facility] [place] [facility] [address] [id number] [place] [address]- 5654 Feb, [facility] [place] [facility] [address] [id number] [place] [address]- 4889 Feb, [facility] [place] [facility] [address] [facility] [id number] [place] [address]- 7657 Feb, [facility] [place] [facility] [address] [facility] [id number] [place] [address]- 4951 Feb, [facility] [place] [facility] [address] [id number], [place] [address]- 7093 Feb, [facility] [place] [facility] [address] [id number] [place] [address]- 4974 Feb, [facility] [place] [facility] [address] [id number] [place] [address]- 8205 Feb, [facility] [place] [facility] [address] [facility] [id number]- 0762 05 Jan, 2012 [facility] [place] [facility] [address] [id number], [place] [address]- 5261 Jan, [facility] [place] [facility] [address] [id number] [place] [address]323 Jan, [facility] [place] [facility] [address] [id number] [place] [address]- 0927 28 Dec, 2011 [facility] [place] [facility] [address] [id number] [place] [address]- 3286 24 Dec, 2011 [facility] [place] [facility] [address] [id number] [place] [address]- 5949 24 Dec, 2011 [facility] [place] [facility] [address] [id number] [place] [address]- 0699 18 Dec, 2011 [facility] [place] [facility] [address] [id number] [place] [address]- 4768 Dec, [facility] [place] [facility] [address] [id number] [place] [address]- 4934 17 Dec, 2011 [facility] [place] [facility] [address] [id number] [place] [address]- 1961 Nov, [facility] [place] [facility] [address] [id number] [place] [address]- 1585 Oct, [facility] [place] [facility] [address] [id number] [place] [address]- 4992 Oct, [facility] [place] [facility] [address] [id number] [place] [address]- 7166 Oct, [facility] [place] [facility] [address] [id number] [place] [address]- 4508 Sep, [facility] [place] [facility] [address] [id number] [place] [address]- 3030 August, [facility] [place] [facility] [address] [id number] [place] [address]- 8516 August, [facility] [place] [facility] [address] [id number] [place] [address]- 0535 Jul, [facility] [place] [facility] [address] [id number], [place] [address] 2546 13 Jul, 2011 [facility] [address] [address]- 8136 Jul, [facility] [address] [address]- 2546 Jul, [facility] [address] [address]- 3476 Jun, [facility] [address] [facility] [id number], [place] [address]- 7066 Jun, [facility] [address] [address]- 6846 Jun, [facility] [address] [address]- 5596 Jun, [facility] [address] [address]- 6566 Jun, [facility] [address] [address]- 7620 Jun, [facility] [address] [address]- 9586 Jun, [facility] [address] [address]- 4486 Jun, [facility] [id number] [address]- 1086 May, [facility] [id number] [address]- 0410 Apr, [facility] [address] [address]- 4096 Feb, IMMUNIZATIONS No Known Immunizations SOCIAL HISTORY Never Assessed REASON FOR VISIT Controlled Med Refill Request PLAN OF CARE VITAL SIGNS MEDICATIONS Medication Instructions Dosage Frequency Start Date End Date Duration Status Xanax 1 MG Orally Twice a day 1 tablet 12h August, 28 days Active Oxycodone HCl 10 MG Orally every 6 hrs 1 tablet as needed 6h Sep, 28 days Active RESULTS No Results PROCEDURES No Known procedures INSTRUCTIONS MEDICATIONS ADMINISTERED No Known Medications MEDICAL (GENERAL) HISTORY Type Description Date Medical History Fainting, Seizures, Epilepsy Medical History Hepatitis C Medical History Back Trouble Surgical History cyst removed 03/2015 Surgical History cyst removal 12/2015
--- OUTSIDE RECORDS SUMMARY | 2018-06-26 17:18 | XMS REPORT ---
Author Author [facility] Medical Staff Organization [facility] [employer] [facility] Address [address] [place], [place] [address] Phone [phone] Care Team Providers Care Explosives Engineer Name Role Phone CLARIBEL YOUNG DO PP [phone] Summary purpose TRANSITION OF CARE AUTO GENERATION Chief Complaint and Reason for Visit Admit Diagnosis 1 LUMBAGO Problem list No authorized problems tracked for continuity of care are available for this visit. Encounters No authorized problems tracked for encounter diagnoses are available for this visit. Medications No home medications recorded for this patient visit Allergies, adverse reactions, alerts No allergy information is available for this patient. Immunizations No immunizations recorded for this patient visit Relevant diagnostic tests and/or laboratory data RESULTS Radiology Results [id number] MRI L-SPINE W/O CONT PACs Image DATE OF EXAM: 2014 MRI 0085-MRI L SPINE WO CONTRAST : RADIOLOGY REPORT DATE OF SERVICE:05/30/2014 HISTORY:The patient has chronic low back pain with bilateral leg radiculopathy, leg weakness, lifetime multiple injuries.724.4, 724.2 MRI OF LUMBAR SPINE WITHOUT INTRAVENOUS CONTRAST 1145 HOURS A multiplanar multisequence study was performed. There is normal alignment of vertebrae and no infiltrative process or fracture. There is mild degenerative endplate change on the right at L5-S1. There is decreased signal in the L5-S1 disc compatible with degenerative change. L1-L2, L2-L3, L3-L4 and L4-L5 discs appear entirely normal with no disc protrusion or bulging. There is no central canal stenosis or foraminal narrowing at these 4 levels. Facet joints at these 4 levels are normal. At L5-S1 there is diffuse bulging of the disc from right to left measuring 4 to 5 mm, but this projects into anterior epidural fat and does not cause any significant extradural impression on the thecal sac. No definite contact with nerve roots is seen. There is no central canal stenosis, and the neural foramina are widely patent. The conus medullaris ends at upper L2. No paraspinal abnormality is identified. IMPRESSION: Disc bulging at L5- S1, which is moderate, but projects into anterior epidural fat. No definite contact with nerve roots is seen. Reportedly, due to enervation posteriorly in this area, this can be associated with pain despite not causing nerve root findings. Remainder of the study is negative. DO ANA ROSA Baker/emi 05/30/2014 12:23: / 05/30/2014 12:35:49 cc:Dr. Lucas Quiñonez This document has been electronically Signed by: On: DATE OF EXAM: 2014 MRI 0085-MRI L SPINE WO CONTRAST : RADIOLOGY REPORT DATE OF SERVICE:05/30/2014 HISTORY:The patient has chronic low back pain with bilateral leg radiculopathy, leg weakness, lifetime multiple injuries.724.4, 724.2 MRI OF LUMBAR SPINE WITHOUT INTRAVENOUS CONTRAST 1145 HOURS A multiplanar multisequence study was performed. There is normal alignment of vertebrae and no infiltrative process or fracture. There is mild degenerative endplate change on the right at L5-S1. There is decreased signal in the L5-S1 disc compatible with degenerative change. L1-L2, L2-L3, L3-L4 and L4-L5 discs appear entirely normal with no disc protrusion or bulging. There is no central canal stenosis or foraminal narrowing at these 4 levels. Facet joints at these 4 levels are normal. At L5-S1 there is diffuse bulging of the disc from right to left measuring 4 to 5 mm, but this projects into anterior epidural fat and does not cause any significant extradural impression on the thecal sac. No definite contact with nerve roots is seen. There is no central canal stenosis, and the neural foramina are widely patent. The conus medullaris ends at upper L2. No paraspinal abnormality is identified. IMPRESSION: Disc bulging at L5- S1, which is moderate, but projects into anterior epidural fat. No definite contact with nerve roots is seen. Reportedly, due to enervation posteriorly in this area, this can be associated with pain despite not causing nerve root findings. Remainder of the study is negative. DO ANA ROSA Baker/emi 05/30/2014 12:23:00 / 05/30/2014 12:35:49 cc:Dr. Lucas Quiñonez This document has been electronically Signed by: DINORAH TRAVIS DO On: :17P Result Amended on 2014-05-30 at 13:17:19. Previous status was IA. History of procedures Procedure Code Code Type Description Date Performed Performing Physician [id number] CPT-4 MRI LUMBAR SPINE W/O DYE 05-30-2014 LUCAS QUIÑONEZ Functional status No functional or cognitive status observations are available for this visit. Vital signs No authorized vital signs are available for this visit. Social history No Social History or smoking status observations were recorded for this visit. ( Unknown if ever smoked.) Treatment Plan No treatment plan text is available for this visit. Hospital discharge instructions No discharge instruction text is available for this visit.
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
[2018-06-26 18:12] VITALS: BP 116/70
--- NOTE | 2018-06-26 18:12 | NUR ---
CARLOS MEJIA HERE TO TAKE PT TO [place] FOR FURTHER CARE.
== END 2018-06-26 18:12 ==
LOC: EDUNIT# 12:50 → ER 12:51
DX: G40.909 Epilepsy, unspecified, not intractable, without status epilepticus (principal); F32.9 Major depressive disorder, single episode, unspecified; K21.9 Gastro-esophageal reflux disease without esophagitis; F41.9 Anxiety disorder, unspecified; B19.20 Unspecified viral hepatitis C without hepatic coma; Z87.820 Personal history of traumatic brain injury; Z88.8 Allergy status to other drugs, medicaments and biological substances; Z82.49 Family history of ischemic heart disease and other diseases of the circulatory system
CPT/HCPCS: 36415; 80053; 80306; 80320; 80329; 81000; 85025; 93005

== ENCOUNTER → 2018-08-29 | Emergency (ER) | payer SELFPAY | END | disposition left against medical advice (07) | LOC: EDUNIT# 14:13 → ER 14:14 | DX: N50.89 Other specified disorders of the male genital organs (principal) ==

== ENCOUNTER 2018-09-19 15:11 | Emergency (ER) | payer SELFPAY ==
[~2018-09-19] VITALS: Ht 185.4 cm; Wt 127.0 kg
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
[2018-09-19 15:20] LABS: BASOPHILS # (AUTO) 0.1 10^3/uL (0.0-0.1); BASOPHILS % (AUTO) 1 % (0-10); EOSINOPHILS # (AUTO) 0.2 10^3/uL (0.0-0.3); EOSINOPHILS % (AUTO) 3 % (0-10); HEMATOCRIT 40 % (40-54); HEMOGLOBIN 13.7 G/DL (13.3-17.7); LYMPHOCYTES % (AUTO) 56 % (12-44); MEAN CORPUSCULAR HEMOGLOBIN 32 PG (25-34); MEAN CORPUSCULAR HGB CONC 34 G/DL (32-36); MEAN CORPUSCULAR VOLUME 95 FL (80-99); MEAN PLATELET VOLUME 10.3 FL (7.4-10.4); MONOCYTES # (AUTO) 0.4 X 10^3 (0.0-1.0); MONOCYTES % (AUTO) 6 % (0-12); NEUTROPHILS # (AUTO) 2.5 X 10^3 (1.8-7.8); NEUTROPHILS % (AUTO) 35 % (42-75); PLATELET COUNT 199 10^3/uL (130-400); RED CELL DISTRIBUTION WIDTH 13.2 % (10.0-14.5); WHITE BLOOD COUNT 7.1 10^3/uL (4.3-11.0)
[2018-09-19 15:39] LABS: BUN/CREATININE RATIO 15; CARBON DIOXIDE 18 MMOL/L (21-32); CHLORIDE 104 MMOL/L (98-107); CREATININE SERUM 1.02 MG/DL (0.60-1.30); POTASSIUM 4.1 MMOL/L (3.6-5.0); SODIUM 141 MMOL/L (135-145)
[2018-09-19 15:40] LABS: ALANINE AMINOTRANSFERASE 74 U/L (0-55); ALBUMIN 4.3 GM/DL (3.2-4.5); ALKALINE PHOSPHATASE 61 U/L (40-136); AMYLASE 49 U/L (25-125); BILIRUBIN,TOTAL 0.4 MG/DL (0.1-1.0); CALCIUM 9.6 MG/DL (8.5-10.1); GFR ESTIMATED > 60; GLUCOSE 110 MG/DL (70-105); LIPASE 236 U/L (8-78); TOTAL PROTEIN 7.6 GM/DL (6.4-8.2)
[2018-09-19] MEDS ORDERED: LEVE750T19 PO (16:38)
[2018-09-19] MEDS ORDERED: TOPI200T25 PO (16:38)
[2018-09-19] MEDS ORDERED: toPIRamate 100 MG (TOPAMAX) TAB PO ONE (16:45)
[2018-09-19] MEDS ORDERED: LEVETIRACETAM 500 MG (KEPPRA) TAB PO ONE (16:45)
[2018-09-19 16:48] VITALS: BP 123/71
== END 2018-09-19 16:48 | disposition home or self-care (01) ==
LOC: EDUNIT# 15:11 → ER 15:12
DX: G40.909 Epilepsy, unspecified, not intractable, without status epilepticus (principal); K21.9 Gastro-esophageal reflux disease without esophagitis; F41.9 Anxiety disorder, unspecified; Z82.49 Family history of ischemic heart disease and other diseases of the circulatory system; Z87.19 Personal history of other diseases of the digestive system; Z88.8 Allergy status to other drugs, medicaments and biological substances; Z98.890 Other specified postprocedural states; Z87.820 Personal history of traumatic brain injury
CPT/HCPCS: 36415; 80053; 82150; 83690; 85025; 99283

== ENCOUNTER → 2020-04-02 | Outpatient (CLI) | payer SELFPAY ==
[~2020-04-02] MED LIST changes: +CATHETER FLUSH 10 ML SYR IV PRN; +HOLD METFORMIN - RECEIVED CONTRAST 20 ML VIAL IV SCH; +IOHEXOL 350 MG/ML 100 ML (OMNIPAQUE 350) VIAL IV ONE; +LEVE750T19 PO; +NS 100 ML (IVPB) BAG IV ONE; +TOPI200T25 PO
--- NOTE | 2020-04-02 13:18 | Diagnostic Imaging Report ---
PROCEDURE: CT head with and without contrast. TECHNIQUE: Multiple contiguous axial images were obtained through the brain before and after the administration of intravenous contrast. Auto Exposure Controls were utilized during the CT exam to meet ALARA standards for radiation dose reduction. INDICATION: Seizures. The previous CT head exam of 11/01/2017 failed to show any sign of an acute intracranial abnormality or of a mass lesion. On this exam there is still no mass, shift of the midline or hemorrhage to suggest an acute intracranial abnormality. There is no abnormal enhancement on the postcontrast sequence to indicate a neoplastic or infectious process either. The the [place] where visualized is unremarkable for any obvious aneurysm formation. The ventricles are not abnormally dilated and stable in size when compared to the prior exam. The bone windows show no sign of a fracture or of a destructive lesion. The orbits and sinuses were not visualized in their entirety. There is mucosal thickening of the ethmoid sinuses. The sinuses are otherwise generally clear. IMPRESSION: 1. There is no evidence for an acute intracranial abnormality. There is no abnormal enhancement to suggest neoplastic or infectious process either. 2. If clinical concern regarding an underlying abnormality persists, then MRI would be recommended for further study. Dictated by: Dictated on workstation # [id number]
== END ==
LOC: RAD 12:30
PROVIDERS: ATTEND Nurse Practitioner Community Health
DX: R56.9 Unspecified convulsions (principal)
CPT/HCPCS: 70470

== ENCOUNTER 2022-10-07 07:23 | Emergency (ER) | payer SELFPAY ==
[~2022-10-07] VITALS: Ht 177 cm; Wt 61.0 kg
[~2022-10-07 07:23] MED LIST changes: -CATHETER FLUSH 10 ML SYR IV PRN; -HOLD METFORMIN - RECEIVED CONTRAST 20 ML VIAL IV SCH; -IOHEXOL 350 MG/ML 100 ML (OMNIPAQUE 350) VIAL IV ONE; -NS 100 ML (IVPB) BAG IV ONE; -SULF1TAB35 PO; +SULF1TAB38 PO
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
[2022-10-07] MEDS ORDERED: NS IV 1000 ML 1,000 ML IV STA (07:38)
[2022-10-07] MEDS ORDERED: KETOROLAC 30 MG/ML VIAL IVP STA (07:38)
[2022-10-07] MEDS ORDERED: RT-ALBUTEROL/IPRATROPIUM 3 ML (DUONEB) VIAL INH ONE (07:45)
[2022-10-07 07:50] LABS: BASOPHILS # (AUTO) 0.1 10^3/uL (0.0-0.1); BASOPHILS % (AUTO) 1 % (0-10); EOSINOPHILS # (AUTO) 0.2 10^3/uL (0.0-0.3); EOSINOPHILS % (AUTO) 3 % (0-10); HEMATOCRIT 39 % (40-54); HEMOGLOBIN 13.5 g/dL (13.3-17.7); LYMPHOCYTES % (AUTO) 47 % (12-44); MEAN CORPUSCULAR HEMOGLOBIN 32 pg (25-34); MEAN CORPUSCULAR HGB CONC 34 g/dL (32-36); MEAN CORPUSCULAR VOLUME 94 fL (80-99); MEAN PLATELET VOLUME 10.6 fL (9.0-12.2); MONOCYTES # (AUTO) 0.4 10^3/uL (0.0-1.0); MONOCYTES % (AUTO) 7 % (0-12); NEUTROPHILS # (AUTO) 2.7 10^3/uL (1.8-7.8); NEUTROPHILS % (AUTO) 42 % (42-75); PLATELET COUNT 199 10^3/uL (130-400); WHITE BLOOD COUNT 6.4 10^3/uL (4.3-11.0)
--- NOTE | 2022-10-07 08:00 | Diagnostic Imaging Report ---
INDICATION: Shortness of breath, chest discomfort. Intermittent chest pain for years but worse today.. TECHNIQUE: Two view chest 7:53 AM CORRELATION STUDY: 10/30/2015 FINDINGS: The heart size, mediastinal configuration and pulmonary vasculature are within normal limits. Lung [place] are mildly hyperinflated but overall clear. Flattening of the diaphragms and increased retrosternal space. Visualized osseous structures are unremarkable. IMPRESSION: 1. Hyperinflated but clear lungs. Dictated by: Dictated on workstation # [id number]
[2022-10-07 08:04] LABS: ALBUMIN 3.9 GM/DL (3.2-4.5)
[2022-10-07 08:05] LABS: CHLORIDE 105 MMOL/L (98-107); POTASSIUM 3.8 MMOL/L (3.6-5.0); SODIUM 139 MMOL/L (135-145)
[2022-10-07 08:06] LABS: CALCIUM 9.4 MG/DL (8.5-10.1)
[2022-10-07 08:07] LABS: GLUCOSE 129 MG/DL (70-105); TOTAL PROTEIN 6.7 GM/DL (6.4-8.2)
[2022-10-07 08:08] LABS: CARBON DIOXIDE 26 MMOL/L (21-32)
[2022-10-07 08:09] LABS: BILIRUBIN,TOTAL 0.3 MG/DL (0.1-1.0)
[2022-10-07 08:10] LABS: ALKALINE PHOSPHATASE 65 U/L (40-136)
[2022-10-07 08:11] LABS: CREATININE SERUM 1.11 MG/DL (0.60-1.30); GFR ESTIMATED 84
[2022-10-07 08:12] LABS: BUN/CREATININE RATIO 13
[2022-10-07 08:13] LABS: ALANINE AMINOTRANSFERASE 14 U/L (0-55); MAGNESIUM 1.8 MG/DL (1.6-2.4)
[2022-10-07 09:00] VITALS: BP 125/84
== END 2022-10-07 09:00 | disposition home or self-care (01) ==
LOC: EDUNIT# 07:23 → ER 07:27
DX: R07.89 Other chest pain (principal); F17.290 Nicotine dependence, other tobacco product, uncomplicated
CPT/HCPCS: 36415; 71046; 80053; 83735; 84484; 85025; 93005